=== PATIENT | female | born 1945 | race Caucasian/White ===

== ENCOUNTER 2017-06-01 19:05 | Outpatient (CLI) | payer MEDICARE | END 2017-06-01 19:06 | disposition critical access hospital (66) | LOC: EMS 19:05 | PROVIDERS: ATTEND Surgery | DX: R11.2 Nausea with vomiting, unspecified (principal); R10.9 Unspecified abdominal pain | CPT/HCPCS: A0425; A0429 ==

== ENCOUNTER 2017-06-01 19:20 | Emergency (ER) | payer MEDICARE ==
[2017-06-01 20:24] LABS: BASOPHILS % (AUTO) 0.6 %; EOSINOPHILS % (AUTO) 0.7 %; HCT - HEMATOCRIT 40.8 % (37.0-47.0); HGB - HEMOGLOBIN 13.4 g/dL (12.0-16.0); LYMPHOCYTES # (AUTO) 1.1 10^3/uL (1.5-3.5); LYMPHOCYTES % (AUTO) 15.7 %; MEAN CORPUSCULAR HEMOGLOBIN 29.5 pg (27.0-31.0); MEAN CORPUSCULAR HGB CONC 32.8 g/dL (32.0-36.0); MEAN CORPUSCULAR VOLUME 89.7 fL (81.0-99.0); MONOCYTES # (AUTO) 0.5 10^3/uL (0.0-1.0); MONOCYTES % (AUTO) 7.6 %; NEUTROPHILS # (AUTO) 5.1 10^3/uL (1.5-6.6); NEUTROPHILS % (AUTO) 75.4 %; RED BLOOD COUNT 4.54 10^6/uL (4.20-5.40); RED CELL DISTRIBUTION WIDTH 13.5 % (12.0-15.0); UNCORRECTED WHITE BLOOD COUNT 6.8 x10^3/uL; WHITE BLOOD COUNT 6.8 x10^3/uL (4.8-10.8)
[2017-06-01 20:30] LABS: BILIRUBIN,URINE NEGATIVE (NEGATIVE)
[2017-06-01 20:33] LABS: ALBUMIN/GLOBULIN RATIO 1.1 (1.0-2.2); BILIRUBIN,TOTAL 0.5 mg/dL (0.2-1.0); CALCIUM 9.3 mg/dL (8.5-10.3); CREATININE 0.7 mg/dL (0.4-1.0); POTASSIUM 3.3 mmol/L (3.5-5.0); TOTAL PROTEIN 7.9 g/dL (6.7-8.2)
[2017-06-01 20:39] LABS: UA w/ MICROSCOPIC CHARGE YES
[2017-06-01] MEDS ORDERED: PROMETHAZINE INJ 25 MG in SODIUM CHLORIDE 0.9% 50 ML IV STA (20:53)
[2017-06-01] MEDS ORDERED: PROMETHAZINE 25 MG/1 ML VIAL ONE (20:55)
[2017-06-01 21:01] LABS: UR CULTURE IF IND NOT INDICATED
[2017-06-01] MEDS ORDERED: IOPAMIDOL-300 100 ML VIAL IVP ONE (21:47)
[2017-06-01] MEDS ORDERED: MAG HYDROX/AL HYDROX/SIMETH 30 ML UDC PO STA (22:09)
[2017-06-01] MEDS ORDERED: LIDOCAINE VISCOUS 2% 15 ML UDC MM STA (22:09)
[2017-06-01] MEDS ORDERED: SUCRALFATE 1 GM/10 ML UDC PO STA (22:09)
[2017-06-01] MEDS ORDERED: ONDANSETRON 4 MG/2 ML VIAL IVP STA (22:10)
[2017-06-01] MEDS ORDERED: SUCRALFATE 1 GM/10 ML UDC ONE (22:12)
[2017-06-01] MEDS ORDERED: LIDOCAINE VISCOUS 2% 15 ML UDC MM ONE (22:12)
--- NOTE | 2017-06-01 22:12 | CT Preliminary Report ---
Exam: CT Abdomen/Pelvis W/ IMPRESSION: 1. Diverticulosis, no diverticulitis or other acute inflammatory process. 2. Hiatal hernia. [facility] SITE ID: [id number]
[2017-06-01] MEDS ORDERED: ONDANSETRON 4 MG/2 ML VIAL ONE (22:13)
[2017-06-01] MEDS ORDERED: MAG HYDROX/AL HYDROX/SIMETH 30 ML UDC ONE (22:13)
--- NOTE | 2017-06-01 22:15 | CT Report ---
EXAM: CT ABDOMEN AND PELVIS EXAM DATE: 06/01/2017 09:47 PM. CLINICAL HISTORY: Abdominal pain, vomiting. COMPARISONS: None. TECHNIQUE: Routine helical CT imaging was performed through the abdomen and pelvis. IV contrast: 100 mL Isovue-300. Enteric contrast: No. Reconstructions: Coronal and sagittal. In accordance with CT protocol optimization, one or more of the following dose reduction techniques w ere utilized for this exam: automated exposure control, adjustment of mA and/or KV based on patient s ize, or use of iterative reconstructive technique. FINDINGS: Lung Bases: The visualized lungs are clear. There is a moderate hiatal hernia. Liver: 9 mm hypodensity at the hepatic dome most likely representing a cyst or hemangioma. Liver is o therwise unremarkable. Gallbladder/Bile Ducts: Unremarkable. Spleen: Normal. Pancreas: Normal. Adrenal Glands: Normal. Kidneys: Normal. No masses or hydronephrosis. Peritoneal Cavity/Bowel: Diverticulosis, no evidence of diverticulitis. No bowel obstruction. No free air or fluid collections. No evidence of appendicitis. Pelvic Organs: Normal. The bladder and visualized pelvic organs are within normal limits. Vasculature: No aneurysms or other significant abnormality. Bones: No significant abnormality. Other: None. IMPRESSION: 1. Diverticulosis, no diverticulitis or other acute inflammatory process. 2. Hiatal hernia. [facility] Referring Provider Line: [phone] SITE ID: [id number]
--- NOTE | 2017-06-01 22:33 | ED Physician Documentation ---
PD HPI ABD PAIN - Stated complaint Stated Complaint: ABD PAIN - Chief complaint Chief Complaint: Abd Pain - History obtained from History obtained from: Patient - History of Present Illness Timing - onset: How many weeks ago (1) Timing - duration: Weeks (1) Timing - details: Gradual onset Pain level max: 7 Pain level now: 4 Quality: Aching, Pain Location: Epigastric Radiation: Other (non-radiating) Improved by: Vomiting Worsened by: Eating Associated symptoms: Nausea, Vomiting. No: Fever, Diarrhea, Constipation, Melena, Hematochezia, Dysuria Similar symptoms before: Diagnosis (gastritis, gastric ulcer, hiatal hernia) Recently seen: Not recently seen Review of Systems Constitutional: denies: Fever, Chills Nose: denies: Rhinorrhea / runny nose, Congestion Throat: denies: Sore throat Cardiac: denies: Chest pain / pressure Respiratory: denies: Cough GI: reports: Nausea, Vomiting. denies: Diarrhea, Hematemesis, Bloody / black stool Skin: denies: Rash Musculoskeletal: denies: Neck pain, Back pain Neurologic: denies: Headache PD PAST MEDICAL HISTORY - Past Medical History Past Medical History: Yes Cardiovascular: Hypertension Respiratory: Asthma Endocrine/Autoimmune: HyPOthyroidism GI: GERD, Hiatal hernia Musculoskeletal: Osteoarthritis - Past Surgical History Past Surgical History: Yes General: Appendectomy, Bowel surgery - Present Medications Home Medications: Ambulatory Orders Medication Instructions Recorded Confirmed Hydrochlorothiazide 25 mg PO DAILY 06/01/17 06/01/17 Levothyroxine [Synthroid] 150 mcg ORAL DAILY 06/01/17 06/01/17 Omeprazole 40 mg ORAL DAILY 06/01/17 06/01/17 Quetiapine Fumarate [Quetiapine 25 mg PO BID 06/01/17 06/01/17 Fumarate ER] Ondansetron Odt [Zofran] 4 mg TL Q6H PRN #10 tablet 06/02/17 Promethazine Supp [Phenergan Supp] 25 mg [place] Q6HR PRN #10 supp 06/02/17 Promethazine [Phenergan] 25 mg PO Q6H PRN #10 tab 06/02/17 Sucralfate [Carafate] 1 gm PO ACHS #60 tablet 06/02/17 - Allergies Allergies/Adverse Reactions: Allergies Allergy/AdvReac Type Severity Reaction Status Date / Time haloperidol [From Haldol] Allergy Unknown Verified 06/01/17 19:26 haloperidol lactate * Allergy Unknown Verified 06/01/17 19:26 [From Haldol] - Living Situation Living Situation: reports: With family Living Arrangement: reports: At home - Social History Does the pt smoke?: No Smoking Status: Never smoker Does the pt drink ETOH?: No Does the pt have substance abuse?: No - Immunizations Immunizations are current?: Yes - POLST Patient has POLST: No PD ED PE NORMAL - Vitals Vital signs reviewed: Yes - General General: Alert and oriented X 3, No acute distress, Well developed/nourished - HEENT HEENT: PERRL, Moist mucous membranes - Neck Neck: Supple, no meningeal sign - Cardiac Cardiac: RRR, Strong equal pulses - Respiratory Respiratory: No respiratory distress, Clear bilaterally - Abdomen Abdomen: Soft, Non tender, Non distended - Derm Derm: Warm and dry - Neuro Neuro: Alert and oriented X 3 - Psych Psych: Normal mood, Normal affect Results - Vitals Vitals: Vital Signs - 24 hr 06/01/17 06/01/17 06/01/17 19:21 19:40 21:02 Temperature 35.6 C L Heart Rate 80 88 69 Respiratory 24 22 22 Rate Blood Pressure 211/101 H 187/94 H 198/87 H O2 Saturation 98 95 96 06/01/17 06/01/17 06/01/17 22:06 22:22 23:15 Temperature Heart Rate 75 75 69 Respiratory 24 22 21 Rate Blood Pressure 206/111 H 181/93 H O2 Saturation 96 95 95 06/01/17 23:32 Temperature Heart Rate 73 Respiratory 26 H Rate Blood Pressure 180/94 H O2 Saturation 98 Oxygen O2 Source Room air - Labs Labs: Laboratory Tests 06/01/17 06/01/17 06/01/17 19:36 19:36 20:24 WBC 6.8 RBC 4.54 Hgb 13.4 Hct 40.8 MCV 89.7 MCH 29.5 MCHC 32.8 RDW 13.5 Plt Count 298 MPV 9.0 Neut # 5.1 Lymph # 1.1 L [place] # 0.5 Eos # 0.0 Baso # 0.0 Absolute Nucleated RBC 0.00 Nucleated RBCs 0.0 Sodium 138 Potassium 3.3 L Chloride 102 Carbon Dioxide 24 Anion Gap 12.0 BUN 16 Creatinine 0.7 Estimated GFR (MDRD) 82 L Glucose 135 H Calcium 9.3 Total Bilirubin 0.5 AST 19 ALT 24 Alkaline Phosphatase 75 Total Protein 7.9 Albumin 4.1 Globulin 3.8 Albumin/Globulin Ratio 1.1 Lipase 25 Urine Color YELLOW Urine Clarity HAZY Urine pH 7.0 Ur Specific [place] 1.015 Urine Protein NEGATIVE Urine Glucose (UA) NEGATIVE Urine Ketones TRACE Urine Occult Blood NEGATIVE Urine Nitrite NEGATIVE Urine Bilirubin NEGATIVE Urine Urobilinogen 0.2 (NORMAL) Ur Leukocyte Esterase TRACE H Urine RBC None Seen Urine WBC 11-25 H Ur Squamous Epith Cells MOD Squamous H Amorphous Sediment Moderate Urine Bacteria None Seen Ur Microscopic Review INDICATED Urine Culture Comments NOT INDICATED - Rads (name of study) CT abd/pelvis Radiology: Prelim report reviewed, EMP read contemporaneously, See rad report ( Diverticulosis, no diverticulitis or other acute inflammatory process. Hiatal hernia. ) PD MEDICAL DECISION MAKING - ED course Complexity details: reviewed results, re-evaluated patient, considered differential, d/w patient ED course: Patient is a 71-year-old female who presents to the emergency department with vomiting today. She was given IV Zofran, Phenergan, Ativan and IV fluids. She is able to tolerate a small amount by mouth. Does not appear significantly dehydrated on exam. The emesis is nonbloody. We will trial her on oral Zofran and rectal Phenergan for home and follow-up closely with her doctor. No evidence of upper GI bleed. Patient counseled regarding signs and symptoms for which I believe and urgent re-evaluation would be necessary. Patient with good understanding of and agreement to plan and is comfortable going home at this time This document was made in part using voice recognition software. While efforts are made to proofread this document, sound alike and grammatical errors may occur. Departure - Departure Disposition: Home, Self Care Clinical Impression: Vomiting Qualifiers: Vomiting type: unspecified Vomiting Intractability: non-intractable Nausea presence: with nausea Qualified Code(s): R11.2 - Nausea with vomiting, unspecified Hypertension Qualifiers: Hypertension type: essential hypertension Qualified Code(s): I10 - Essential ( primary) hypertension Condition: Stable Instructions: ED Nausea Vomiting Follow-Up: your,doctor in 3 days [Other] Prescriptions: Promethazine Supp [Phenergan Supp] 25 mg UT Q6HR PRN #10 supp PRN Reason: Nausea / Vomiting Sucralfate [Carafate] 1 gm PO ACHS #60 tablet Promethazine [Phenergan] 25 mg PO Q6H PRN #10 tab PRN Reason: Nausea / Vomiting Ondansetron Odt [Zofran] 4 mg TL Q6H PRN #10 tablet PRN Reason: Nausea / Vomiting Comments: Return if you worsen. Follow up with your doctor in 3 days if not better
[2017-06-01] MEDS ORDERED: PANTOPRAZOLE 40 MG VIAL IVP STA (23:30)
[2017-06-01] MEDS ORDERED: LORazepam 2 MG/ML SYRINGE IVP STA (23:34)
[2017-06-01] MEDS ORDERED: SODIUM CHLORIDE 0.9% 1,000 ML IV ONE (23:34)
[2017-06-01] MEDS ORDERED: LORazepam 2 MG/ML SYRINGE ONE (23:43)
[2017-06-01] MEDS ORDERED: PANTOPRAZOLE 40 MG VIAL ONE (23:43)
[2017-06-02 01:08] VITALS: BP 195/103
== END 2017-06-02 01:19 | disposition home or self-care (01) ==
LOC: EDUNIT# → ED 19:20
DX: R11.2 Nausea with vomiting, unspecified (principal); I10 Essential (primary) hypertension; J45.909 Unspecified asthma, uncomplicated; E03.9 Hypothyroidism, unspecified; K21.9 Gastro-esophageal reflux disease without esophagitis; M19.90 Unspecified osteoarthritis, unspecified site
CPT/HCPCS: 74177; 80053; 81001; 83690; 85025; 96365; 96375; 99284; A9270; J2060; Q9967; 81003; 87086

== ENCOUNTER 2017-06-28 09:11 | Emergency (ER) | payer MEDICARE, MEDICAID ==
[2017-06-28 09:25] VITALS: BP 140/86
--- NOTE | 2017-06-28 10:13 | XRAY Preliminary Report ---
Exam: XR Shoulder 3 View RT IMPRESSION: Unremarkable study for age. No fracture or acute posttraumatic abnormality. Minor osteophytic changes in the glenohumeral joint with moderate degenerative and hypertrophic castellano es right AC joint. [facility] SITE ID: [id number]
--- NOTE | 2017-06-28 10:16 | XRAY Report ---
EXAM: RIGHT SHOULDER RADIOGRAPHY, 3 VIEWS EXAM DATE: 06/28/2017 10:01 AM. CLINICAL HISTORY: 72 year-old female post fall last night jamming shoulder. Pain. COMPARISON: None. TECHNIQUE: AP, Grashey and Y views. FINDINGS: Bones: Unremarkable for age. No fracture or acute bone lesion. Small 1 cm benign appearing bone cyst right femoral head. Joints: Minor osteophytic changes in the glenohumeral joint with moderate degenerative hypertrophic c hanges right AC joint. No subluxations or joint effusion. Soft tissues: The visualized hemithorax is unremarkable. No soft tissue swelling. IMPRESSION: Unremarkable study for age. No fracture or acute posttraumatic abnormality. Minor osteophytic changes in the glenohumeral joint with moderate degenerative and hypertrophic castellano es right AC joint. [facility] Referring Provider Line: [phone] SITE ID: [id number]
--- NOTE | 2017-06-28 10:20 | ED Physician Documentation ---
PD HPI UPPER EXT INJURY - Stated complaint Stated Complaint: GLF, R ARM PX - Chief complaint Chief Complaint: Ext Problem - History obtained from History obtained from: Patient - History of Present Illness Location: Right, Shoulder Type of injury: Fall Where injury occurred: Home Timing - onset: Last night Worsened by: Moving, Palpating Associated symptoms: No: Weakness, Numbness Similar symptoms before: Has not had sx before - Additonal information Additional information: The patient is a 72-year-old female who fell last night when she stumbled over a hose on her deck. She impacted her right upper extremity, and presents now with pain in her right shoulder. She denies any other injuries. She is right- hand dominant. Review of Systems Constitutional: denies: Fever Ears: denies: Tinnitus/ringing Nose: denies: Congestion Cardiac: denies: Chest pain / pressure, Palpitations Respiratory: denies: Dyspnea, Cough GI: denies: Abdominal Pain, Nausea, Vomiting : denies: Dysuria Skin: denies: Rash Musculoskeletal: reports: Joint pain (Right shoulder). denies: Neck pain, Back pain Neurologic: denies: Focal weakness, Numbness, Headache, Head injury PD PAST MEDICAL HISTORY - Past Medical History Past Medical History: Yes Cardiovascular: Hypertension Respiratory: Asthma Endocrine/Autoimmune: HyPOthyroidism GI: GERD, Hiatal hernia Musculoskeletal: Osteoarthritis - Past Surgical History Past Surgical History: Yes General: Appendectomy, Bowel surgery - Present Medications Home Medications: Ambulatory Orders Medication Instructions Recorded Confirmed Hydrochlorothiazide 25 mg PO DAILY 06/01/17 06/01/17 Levothyroxine [Synthroid] 150 mcg ORAL DAILY 06/01/17 06/01/17 Omeprazole 40 mg ORAL DAILY 06/01/17 06/01/17 Quetiapine Fumarate [Quetiapine 25 mg PO BID 06/01/17 06/01/17 Fumarate ER] Ondansetron Odt [Zofran] 4 mg TL Q6H PRN #10 tablet 06/02/17 Promethazine Supp [Phenergan Supp] 25 mg [place] Q6HR PRN #10 supp 06/02/17 Promethazine [Phenergan] 25 mg PO Q6H PRN #10 tab 06/02/17 Sucralfate [Carafate] 1 gm PO ACHS #60 tablet 06/02/17 - Allergies Allergies/Adverse Reactions: Allergies Allergy/AdvReac Type Severity Reaction Status Date / Time haloperidol [From Haldol] Allergy Unknown Verified 06/01/17 19:26 haloperidol lactate * Allergy Unknown Verified 06/01/17 19:26 [From Haldol] - Social History Does the pt smoke?: No Smoking Status: Never smoker Does the pt drink ETOH?: No Does the pt have substance abuse?: No - Immunizations Immunizations are current?: Yes - POLST Patient has POLST: No PD ED PE NORMAL - Vitals Vital signs reviewed: Yes (Mild systolic hypertension.) - General General: Alert and oriented X 3, Well developed/nourished - HEENT HEENT: Atraumatic, EOMI, Pharynx benign - Neck Neck: No bony TTP, No adenopathy, No JVD - Cardiac Cardiac: RRR, No murmur - Respiratory Respiratory: No respiratory distress, Clear bilaterally, Other (No chest wall tenderness.) - Abdomen Abdomen: Soft, Non tender - Back Back: No CVA TTP, No spinal TTP - Derm Derm: No rash - Extremities Extremities: No edema, No calf tenderness / cord, Other (There is tenderness to palpation over the anterior aspect of the right shoulder, with decreased range of motion due to pain. There is no ecchymosis or break in the integument. Distal neurovascular is intact.) - Neuro Neuro: Alert and oriented X 3, No motor deficit, No sensory deficit, Normal speech Results - Vitals Vitals: Vital Signs - 24 hr 06/28/17 09:21 Temperature 36.5 C Heart Rate 73 Respiratory 18 Rate Blood Pressure 140/86 H O2 Saturation 99 Oxygen O2 Source Room air - Rads (name of study) Right Shoulder Radiology: Prelim report reviewed, EMP read contemporaneously, See rad report ( No fracture or acute posttraumatic abnormality. Minor osteophytic changes in the glenohumeral joint with moderate degenerative and hypertrophic changes right AC joint.) PD MEDICAL DECISION MAKING - ED course Complexity details: reviewed results, re-evaluated patient, considered differential, d/w patient ED course: The patient's presentation is significant for contusion/strain of the right shoulder caused by falling. X-ray reveals no evidence of fracture or dislocation. Treatment in the emergency department included acetaminophen 650 mg orally, and application of a right arm sling. The patient declined prescription for pain medication. I discussed with her the expected course of injury, symptomatic treatment and outpatient follow-up, as well as potentially worrisome signs or symptoms that should prompt reevaluation in the emergency department. Departure - Departure Disposition: 01 Home, Self Care Clinical Impression: Strain of right shoulder Qualifiers: Encounter type: initial encounter Qualified Code(s): S46.911A - Strain of unspecified muscle, fascia and tendon at shoulder and upper arm level, right arm , initial encounter Fall Qualifiers: Encounter type: initial encounter Qualified Code(s): W19.XXXA - Unspecified fall, initial encounter Condition: Stable Instructions: ED Sprain Shoulder Follow-Up: Danisha Greco PA-C [Provider Admit Priv/Credential] - Comments: Apply ice pack to your right shoulder intermittently for the next several days. Use the arm sling if it provides comfort. You can use Tylenol or ibuprofen if needed for discomfort. Follow-up with your primary physician as scheduled. Return to the emergency department if you develop increasing pain, or otherwise worsening symptoms.
[2017-06-28] MEDS ORDERED: ACETAMINOPHEN 325 MG TABLET PO STA (10:33)
[2017-06-28] MEDS ORDERED: ACETAMINOPHEN 325 MG TABLET PO ONE (10:40)
[2017-06-28] MEDS ORDERED: METOPROLOL 5 MG/5 ML VIAL IVP ONE (11:04)
== END 2017-06-28 10:48 | disposition home or self-care (01) ==
LOC: ED 09:11
DX: S46.911A Strain of unspecified muscle, fascia and tendon at shoulder and upper arm level, right arm, initial encounter (principal); W18.09XA Striking against other object with subsequent fall, initial encounter; I10 Essential (primary) hypertension; E03.9 Hypothyroidism, unspecified; Y92.007 Garden or yard of unspecified non-institutional (private) residence as the place of occurrence of the external cause
CPT/HCPCS: 73030; 99283; A9270

== ENCOUNTER 2017-07-22 03:44 | Outpatient (CLI) | payer MEDICARE, MEDICAID | END 2017-07-22 03:45 | disposition critical access hospital (66) | LOC: EMS 03:44 | PROVIDERS: ATTEND Surgery | DX: R11.2 Nausea with vomiting, unspecified (principal) | CPT/HCPCS: A0425; A0427 ==

== ENCOUNTER 2017-07-22 04:18 | Observation (INO) | payer MEDICARE, MEDICAID ==
[2017-07-22] MEDS ORDERED: SODIUM CHLORIDE 0.9% 1,000 ML IV ONE ×3 (04:32→08:38)
[2017-07-22] MEDS ORDERED: PROMETHAZINE INJ 12.5 MG in SODIUM CHLORIDE 0.9% 50 ML IV STA (04:32)
--- NOTE | 2017-07-22 04:40 | ED Physician Documentation ---
PD HPI ABD PAIN - Stated complaint Stated Complaint: N/V - Chief complaint Chief Complaint: Abd Pain - History obtained from History obtained from: Patient, EMS - History of Present Illness Timing - onset: How many days ago (4) Timing - duration: Days (4) Timing - details: Waxing and waning Quality: Pain Location: All over / everywhere Associated symptoms: Nausea, Vomiting. No: Fever, Diarrhea, Dysuria, Chest pain Similar symptoms before: Work up / diagnostics (She was seen here 2 months ago with similar presentation.) - Treatment prior to arrival Treatment prior to arrival: Medics administered Zofran 4 mg IV. - Additional information Additional information: The patient is a 72-year-old female who presents with generalized abdominal pain and vomiting of 4 days' duration. She also reports fever and chills. She denies diarrhea or dysuria. She reports a history of similar symptoms intermittently since 2007. The last time was 2 months ago. She was seen here at that time, and a CT scan revealed hiatal hernia, and no other radiographic abnormality to explain her symptoms. She is status post appendectomy. She denies any use of alcohol or other drugs. Review of Systems Constitutional: reports: Fever, Chills Ears: denies: Tinnitus/ringing Nose: denies: Congestion Throat: denies: Sore throat Cardiac: denies: Chest pain / pressure Respiratory: denies: Dyspnea, Cough GI: reports: Abdominal Pain, Nausea, Vomiting. denies: Diarrhea : denies: Dysuria Skin: denies: Rash Musculoskeletal: denies: Back pain Neurologic: denies: Focal weakness, Numbness, Headache PD PAST MEDICAL HISTORY - Past Medical History Cardiovascular: Hypertension Respiratory: Asthma Endocrine/Autoimmune: HyPOthyroidism GI: GERD, Hiatal hernia Musculoskeletal: Osteoarthritis - Past Surgical History Past Surgical History: Yes General: Appendectomy, Bowel surgery - Present Medications Home Medications: Ambulatory Orders Medication Instructions Recorded Confirmed Hydrochlorothiazide 25 mg PO DAILY 06/01/17 06/01/17 Levothyroxine [Synthroid] 150 mcg ORAL DAILY 06/01/17 06/01/17 Omeprazole 40 mg ORAL DAILY 06/01/17 06/01/17 Quetiapine Fumarate [Quetiapine 25 mg PO BID 06/01/17 06/01/17 Fumarate ER] Ondansetron Odt [Zofran] 4 mg TL Q6H PRN #10 tablet 06/02/17 07/22/17 Promethazine Supp [Phenergan Supp] 25 mg [place] Q6HR PRN #10 supp 06/02/17 Promethazine [Phenergan] 25 mg PO Q6H PRN #10 tab 06/02/17 Sucralfate [Carafate] 1 gm PO ACHS #60 tablet 06/02/17 Ondansetron Odt [Zofran] 4 mg TL Q6H PRN #10 tablet 07/22/17 Potassium Chloride [K-Dur] 20 meq PO DAILY #7 tablet 07/22/17 Promethazine [Phenergan] 25 - 50 mg PO Q6H PRN #10 tab 07/22/17 - Allergies Allergies/Adverse Reactions: Allergies Allergy/AdvReac Type Severity Reaction Status Date / Time haloperidol [From Haldol] Allergy Unknown Verified 07/22/17 04:27 haloperidol lactate * Allergy Unknown Verified 07/22/17 04:27 [From Haldol] - Social History Does the pt smoke?: No Smoking Status: Never smoker Does the pt drink ETOH?: No Does the pt have substance abuse?: No - Immunizations Immunizations are current?: Yes - POLST Patient has POLST: No PD ED PE NORMAL - Vitals Vital signs reviewed: Yes (hypertensive) - General General: Alert and oriented X 3, Well developed/nourished - HEENT HEENT: Atraumatic, EOMI, Moist mucous membranes, Pharynx benign - Neck Neck: Supple, no meningeal sign, No adenopathy, No JVD - Cardiac Cardiac: RRR, No murmur - Respiratory Respiratory: No respiratory distress, Clear bilaterally - Abdomen Abdomen: Normal bowel sounds, Soft, Non distended, Other (Mild generalized tenderness to palpation, without focal tenderness, rebound, or guarding.) - Back Back: No CVA TTP - Derm Derm: No rash - Extremities Extremities: No edema, No calf tenderness / cord - Neuro Neuro: Alert and oriented X 3, No motor deficit, No sensory deficit Results - Vitals Vitals: Vital Signs - 24 hr 07/22/17 07/22/17 04:22 06:33 Temperature 36.8 C Heart Rate 83 81 Respiratory 18 16 Rate Blood Pressure 191/97 H 170/84 H O2 Saturation 96 95 Oxygen O2 Source Room air - Labs Labs: Laboratory Tests 07/22/17 07/22/17 07/22/17 04:38 05:00 05:00 WBC 11.9 H RBC 4.73 Hgb 14.0 Hct 41.9 MCV 88.6 MCH 29.6 MCHC 33.5 RDW 13.6 Plt Count 313 MPV 8.7 Neut # 10.6 H Lymph # 0.8 L [place] # 0.5 Eos # 0.0 Baso # 0.0 Absolute Nucleated RBC 0.00 Nucleated RBCs 0.0 Sodium 138 Potassium 2.5 L* Chloride 96 L Carbon Dioxide 30 Anion Gap 12.0 BUN 40 H Creatinine 1.2 H Estimated GFR (MDRD) 44 L Glucose 183 H Calcium 9.2 Total Bilirubin 1.2 H AST 29 ALT 23 Alkaline Phosphatase 79 Total Protein 8.0 Albumin 4.2 Globulin 3.8 Albumin/Globulin Ratio 1.1 Lipase 16 L Urine Color YELLOW Urine Clarity CLEAR Urine pH 6.0 Ur Specific [place] >=1.030 H Urine Protein 100 H Urine Glucose (UA) NEGATIVE Urine Ketones NEGATIVE Urine Occult Blood TRACE-INTA Urine Nitrite NEGATIVE Urine Bilirubin NEGATIVE Urine Urobilinogen 0.2 (NORMAL) Ur Leukocyte Esterase NEGATIVE Urine RBC 0-5 Urine WBC 0-3 Ur Squamous Epith Cells RARE Squamous Urine Bacteria Rare Urine Casts 11-25 Hyaline Casts Urine Mucus Moderate Strands Ur Microscopic Review INDICATED Urine Culture Comments NOT INDICATED PD MEDICAL DECISION MAKING - ED course Complexity details: reviewed old records, reviewed results, re-evaluated patient , considered differential, d/w patient ED course: The patient's presentation is significant for vomiting with dehydration. Her exam is significant for mild left upper quadrant tenderness to palpation, consistent with possible gastritis. Her presentation does not suggest diverticulitis, bowel obstruction, or otherwise surgical abdomen. Her chemistry panel is significant for hypokalemia with a potassium of 2.5. BUN to creatinine ratio is greater than 20, with a BUN of 40 and creatinine 1.2. Urinalysis reveals concentrated urine of greater than 1.030. Treatment in the emergency department included administration of normal saline 2 L IV, Phenergan 12.5 mg IV, Ativan 0.5 mg IV, and Zofran 4 mg IV. Potassium 10 mEq was administered IV, and 25 mEq orally. Following the above treatment she remains nauseated, although improved when compared to initial arrival. At change of shift she is being observed to confirm her ability to drink fluids without recurrent vomiting.It is anticipated she will be able to go home with prescriptions for antiemetic. Her care is being turned over to Dr. Martinez who will reevaluate her prior to discharge. Departure - Departure Clinical Impression: Dehydration, Hypokalemia, Hiatal hernia Vomiting Qualifiers: Vomiting type: unspecified Vomiting Intractability: non-intractable Nausea presence: without nausea Qualified Code(s): R11.11 - Vomiting without nausea Condition: Stable Instructions: ED Abdominal Pain Unkn Cause, ED Nausea Vomiting, ED Potassium Deficiency Follow-Up: Danisha Greco PA-C [Provider Admit Priv/Credential] - Prescriptions: Potassium Chloride [K-Dur] 20 meq PO DAILY #7 tablet Promethazine [Phenergan] 25 - 50 mg PO Q6H PRN #10 tab PRN Reason: Nausea / Vomiting Ondansetron Odt [Zofran] 4 mg TL Q6H PRN #10 tablet PRN Reason: Nausea / Vomiting Comments: Drink plenty of fluids. You can use Phenergan or Zofran as prescribed if needed for nausea. Follow up with your primary physician within 1 week. Call to schedule an appointment. Return to the emergency department if you develop increasing abdominal pain, persistent vomiting, or otherwise worsening symptoms.
[2017-07-22] MEDS ORDERED: PHENobarb/HYOSCY/ATROPINE/SCOP 5 ML SYRINGE PO STA (04:45)
[2017-07-22] MEDS ORDERED: MAG HYDROX/AL HYDROX/SIMETH 30 ML UDC PO STA (04:45)
[2017-07-22] MEDS ORDERED: LIDOCAINE VISCOUS 2% 15 ML UDC MM STA (04:45)
[2017-07-22 04:47] LABS: BILIRUBIN,URINE NEGATIVE (NEGATIVE)
[2017-07-22] MEDS ORDERED: PROMETHAZINE 25 MG/1 ML VIAL ONE (04:48)
[2017-07-22 04:49] LABS: UA w/ MICROSCOPIC CHARGE YES
[2017-07-22 04:53] LABS: UR CULTURE IF IND NOT INDICATED; WBC,URINE 0-3 /HPF (0-5)
[2017-07-22 05:18] LABS: BASOPHILS % (AUTO) 0.3 %; HCT - HEMATOCRIT 41.9 % (37.0-47.0); LYMPHOCYTES # (AUTO) 0.8 10^3/uL (1.5-3.5); LYMPHOCYTES % (AUTO) 6.4 %; MEAN CORPUSCULAR HEMOGLOBIN 29.6 pg (27.0-31.0); MEAN CORPUSCULAR HGB CONC 33.5 g/dL (32.0-36.0); MEAN CORPUSCULAR VOLUME 88.6 fL (81.0-99.0); MEAN PLATELET VOLUME 8.7 fL (7.9-10.8); MONOCYTES # (AUTO) 0.5 10^3/uL (0.0-1.0); MONOCYTES % (AUTO) 4.4 %; NEUTROPHILS # (AUTO) 10.6 10^3/uL (1.5-6.6); NEUTROPHILS % (AUTO) 88.9 %; RED BLOOD COUNT 4.73 10^6/uL (4.20-5.40); RED CELL DISTRIBUTION WIDTH 13.6 % (12.0-15.0); UNCORRECTED WHITE BLOOD COUNT 11.9 x10^3/uL; WHITE BLOOD COUNT 11.9 x10^3/uL (4.8-10.8)
[2017-07-22 05:31] LABS: ALBUMIN/GLOBULIN RATIO 1.1 (1.0-2.2); BILIRUBIN,TOTAL 1.2 mg/dL (0.2-1.0); CALCIUM 9.2 mg/dL (8.5-10.3); CREATININE 1.2 mg/dL (0.4-1.0)
[2017-07-22] MEDS ORDERED: PHENobarb/HYOSCY/ATROPINE/SCOP 5 ML SYRINGE PO ONE (05:31)
[2017-07-22 05:32] LABS: POTASSIUM 2.5 mmol/L (3.5-5.0)
[2017-07-22] MEDS ORDERED: LIDOCAINE VISCOUS 2% 15 ML UDC MM ONE (05:32)
[2017-07-22] MEDS ORDERED: MAG HYDROX/AL HYDROX/SIMETH 30 ML UDC ONE (05:32)
[2017-07-22] MEDS ORDERED: LORazepam 2 MG/ML SYRINGE IVP STA (05:46)
[2017-07-22] MEDS ORDERED: POTASSIUM CHLOR 10 MEQ/100 ML 100 ML IV ONE ×4 (05:47→08:47)
[2017-07-22] MEDS ORDERED: POTASSIUM BICARB 25 MEQ TABLET PO STA (05:48)
[2017-07-22] MEDS ORDERED: LORazepam 2 MG/ML SYRINGE ONE (05:55)
[2017-07-22] MEDS ORDERED: POTASSIUM BICARB 25 MEQ TABLET PO ONE (07:04)
[2017-07-22] MEDS ORDERED: ONDANSETRON 4 MG/2 ML VIAL IVP STA (07:05)
[2017-07-22] MEDS ORDERED: ONDANSETRON 4 MG/2 ML VIAL ONE (07:14)
[2017-07-22] MEDS ORDERED: SODIUM CHLORIDE FLUSH 0.9% 10 ML SYRINGE IVP ONE (07:15)
[2017-07-22] MEDS ORDERED: POTASSIUM CHLOR 20 MEQ/100 ML 100 ML IV ONE (08:38)
--- NOTE | 2017-07-22 09:56 | ED Physician Documentation ---
PD HPI ABD PAIN - Stated complaint Stated Complaint: N/V - Chief complaint Chief Complaint: Abd Pain - History obtained from History obtained from: Patient - History of Present Illness Timing - onset: How many days ago (5) Timing - duration: Days (5) Timing - details: Gradual onset, Still present, Waxing and waning Quality: Sharp, Pain Location: Epigastric Improved by: Vomiting Associated symptoms: Nausea, Vomiting Similar symptoms before: Diagnosis (intractable cyclic vomiting.) Recently seen: Emergency Dept ( Seen here 2 months ago and admitted to [facility] in March.) PD PAST MEDICAL HISTORY - Past Medical History Cardiovascular: Hypertension Respiratory: Asthma Endocrine/Autoimmune: HyPOthyroidism GI: GERD, Hiatal hernia Musculoskeletal: Osteoarthritis - Past Surgical History Past Surgical History: Yes General: Appendectomy, Bowel surgery - Present Medications Home Medications: Ambulatory Orders Medication Instructions Recorded Confirmed Hydrochlorothiazide 25 mg PO DAILY 06/01/17 06/01/17 Levothyroxine [Synthroid] 150 mcg ORAL DAILY 06/01/17 06/01/17 Omeprazole 40 mg ORAL DAILY 06/01/17 06/01/17 Quetiapine Fumarate [Quetiapine 25 mg PO BID 06/01/17 06/01/17 Fumarate ER] Ondansetron Odt [Zofran] 4 mg TL Q6H PRN #10 tablet 06/02/17 07/22/17 Promethazine Supp [Phenergan Supp] 25 mg [place] Q6HR PRN #10 supp 06/02/17 Promethazine [Phenergan] 25 mg PO Q6H PRN #10 tab 06/02/17 Sucralfate [Carafate] 1 gm PO ACHS #60 tablet 06/02/17 Ondansetron Odt [Zofran] 4 mg TL Q6H PRN #10 tablet 07/22/17 Potassium Chloride [K-Dur] 20 meq PO DAILY #7 tablet 07/22/17 Promethazine [Phenergan] 25 - 50 mg PO Q6H PRN #10 tab 07/22/17 - Allergies Allergies/Adverse Reactions: Allergies Allergy/AdvReac Type Severity Reaction Status Date / Time haloperidol [From Haldol] Allergy Unknown Verified 07/22/17 04:27 haloperidol lactate * Allergy Unknown Verified 07/22/17 04:27 [From Haldol] - Social History Does the pt smoke?: No Smoking Status: Never smoker Does the pt drink ETOH?: No Does the pt have substance abuse?: No - Immunizations Immunizations are current?: Yes - POLST Patient has POLST: No Results - Vitals Vitals: Vital Signs - 24 hr 07/22/17 07/22/17 07/22/17 04:22 06:33 08:34 Temperature 36.8 C Heart Rate 83 81 86 Respiratory 18 16 16 Rate Blood Pressure 191/97 H 170/84 H 193/87 H O2 Saturation 96 95 96 Oxygen O2 Source Room air - Labs Labs: Laboratory Tests 07/22/17 07/22/17 07/22/17 04:38 05:00 05:00 WBC 11.9 H RBC 4.73 Hgb 14.0 Hct 41.9 MCV 88.6 MCH 29.6 MCHC 33.5 RDW 13.6 Plt Count 313 MPV 8.7 Neut # 10.6 H Lymph # 0.8 L Phillips # 0.5 Eos # 0.0 Baso # 0.0 Absolute Nucleated RBC 0.00 Nucleated RBCs 0.0 Sodium 138 Potassium 2.5 L* Chloride 96 L Carbon Dioxide 30 Anion Gap 12.0 BUN 40 H Creatinine 1.2 H Estimated GFR (MDRD) 44 L Glucose 183 H Calcium 9.2 Total Bilirubin 1.2 H AST 29 ALT 23 Alkaline Phosphatase 79 Total Protein 8.0 Albumin 4.2 Globulin 3.8 Albumin/Globulin Ratio 1.1 Lipase 16 L Urine Color YELLOW Urine Clarity CLEAR Urine pH 6.0 Ur Specific [place] >=1.030 H Urine Protein 100 H Urine Glucose (UA) NEGATIVE Urine Ketones NEGATIVE Urine Occult Blood TRACE-INTA Urine Nitrite NEGATIVE Urine Bilirubin NEGATIVE Urine Urobilinogen 0.2 (NORMAL) Ur Leukocyte Esterase NEGATIVE Urine RBC 0-5 Urine WBC 0-3 Ur Squamous Epith Cells RARE Squamous Urine Bacteria Rare Urine Casts 11-25 Hyaline Casts Urine Mucus Moderate Strands Ur Microscopic Review INDICATED Urine Culture Comments NOT INDICATED PD MEDICAL DECISION MAKING - ED course Complexity details: reviewed old records, reviewed results, re-evaluated patient , considered differential, d/w patient ED course: 72 y/o homeless female with paranoid disorder has a history of cyclical vomiting syndrome has been treated in the ED this morning by Dr. Phoenix and despite valiant effort the patient continues to be symptomatic. This is similar to prior presentations and a review of records from [facility] reveals a hospitalization for same in March of this year and multiple prior evaluations and treatments for cyclical vomiting. Today she has acute kidney injury and intractable vomiting with hypokalemia. Departure - Departure Disposition: 66 [facility] DC/Xfer Clinical Impression: Dehydration, Hypokalemia, Hiatal hernia Vomiting Qualifiers: Vomiting type: unspecified Vomiting Intractability: non-intractable Nausea presence: without nausea Qualified Code(s): R11.11 - Vomiting without nausea Cyclical vomiting syndrome Qualifiers: Vomiting Intractability: intractable Nausea presence: with nausea Qualified Code(s): G43.A1 - Cyclical vomiting, intractable Condition: Stable Instructions: ED Abdominal Pain Unkn Cause, ED Potassium Deficiency, ED Nausea Vomiting Follow-Up: Danisha Greco PA-C [Provider Admit Priv/Credential] - Prescriptions: Potassium Chloride [K-Dur] 20 meq PO DAILY #7 tablet Promethazine [Phenergan] 25 - 50 mg PO Q6H PRN #10 tab PRN Reason: Nausea / Vomiting Ondansetron Odt [Zofran] 4 mg TL Q6H PRN #10 tablet PRN Reason: Nausea / Vomiting Comments: Drink plenty of fluids. You can use Phenergan or Zofran as prescribed if needed for nausea. Follow up with your primary physician within 1 week. Call to schedule an appointment. Return to the emergency department if you develop increasing abdominal pain, persistent vomiting, or otherwise worsening symptoms.
[2017-07-22] MEDS ORDERED: cloNIDine 0.1 MG TABLET PO PRN (11:16)
[2017-07-22] MEDS ORDERED: ACETAMINOPHEN 325 MG TABLET PO PRN (11:22)
[2017-07-22] MEDS ORDERED: ONDANSETRON 4 MG/2 ML VIAL IVP PRN (11:22)
[2017-07-22] MEDS ORDERED: HYDROcod/ACETAM 5/325 MG TABLET PO PRN (11:22)
[2017-07-22] MEDS ORDERED: PROMETHAZINE 25 MG/1 ML VIAL IM PRN (11:22)
[2017-07-22] MEDS ORDERED: ZOLPIDEM 5 MG TABLET PO PRN (11:22)
[2017-07-22] MEDS ORDERED: PROCHLORPERAZINE 10 MG/2 ML VIAL IVP PRN (11:22)
[2017-07-22] MEDS ORDERED: SODIUM CHLORIDE FLUSH 0.9% 10 ML SYRINGE IVP PRN (11:22)
[2017-07-22] MEDS ORDERED: PANTOPRAZOLE 40 MG VIAL IVP STA (11:28)
[2017-07-22] MEDS ORDERED: POTASSIUM CHLORIDE 20 MEQ TABLET PO STA (11:30)
[2017-07-22] MEDS ORDERED: hydrALAZINE INJ 20 MG/ML VIAL IVP PRN (11:31)
--- NOTE | 2017-07-22 11:35 | HISTORY & PHYSICAL EXAMINATION ---
Chief Complaint - Chief Complaint Chief Complaint: nausea and vomiting History of Present Illness - Admitted From Admitted From:: emergence department - History Obtained From History obtained from: patient - History of Present Illness HPI Comment/Other: The patient is a 72-year-old female with past medical history significant for cyclical vomiting syndrome, paranoid disorder, who presents emergence department with generalized abdominal pain and vomiting for 4 days' duration. She also reports fever, chills, cough with productive sputum. Patient has been admitted for multiple times with similar symptoms. CT on two months revealed hiatal hernia, and no other radiographic significant abnormality. her chemistry panel today is significant for hypokalemia with a potassium of 2.5. BUN to creatinine ratio is greater than 20, with a BUN of 40 and creatinine 1.2. Urinalysis reveals concentrated urine of greater than 1.030.On May 2017, patient's BUN 16, creatinine 0.7, indicate dehydration and acute injury. She denies chest pain, shortness of breathing, headache, diarrhea, dysuria or hematuria. She denies any use of cigarette smoking, alcohol or other drugs. Patient is admitted at observation unit for symptomatic support, hydration, and electrolytic replacement now. Review of Systems - Constitutional Constitutional: reports: Fatigue, Fever, Chills. denies: Malaise, Weakness, Poor appetite, Diaphoresis, Night sweats, Weight gain, Weight loss - Eyes Eyes: denies: Pain, Irritation, Blurred vision, Spots in vision, Field loss, Vision loss, Dipolpia - Ears, Nose & Throat Ears, Nose & Throat: denies: Ear pain, Hearing loss, Hearing aids, Tinnitus, Vertigo, Nasal pain, Nasal discharge, Nasal obstruction, Sore throat, Hoarseness , Mouth lesions, Bleeding gums - Cardiovascular Cariovascular: denies: Irregular heart rate, Palpitations, Chest pain, Edema, Lightheadedness, Syncope, Exertional dyspnea, Decr. exercise tolerance - Respiratory Respiratory: reports: Cough, Sputum production. denies: Wheezing, Snoring, Hemoptysis, Orthopnea, SOB at rest, SOB with exertion, Apnea, Stridor - Gastrointestinal Gastrointestinal: reports: Abdominal pain, Nausea, Vomiting. denies: Abdominal distention, Constipation, Diarrhea, Change in bowel habits, Rectal bleeding, Black stools, Bloody stools, Bile emesis, Walter blood emesis, Coffee grounds emesis - Genitourinary Genitourinary: denies: Dysuria, Frequency, Urgency, Hematuria, Incontinence, Flank pain, Urethral discharge - Musculoskeletal Musculoskeletal: denies: Muscle pain, Back pain, Muscle aches, Stiffness, Limited range of motion, Muscle weakness, Gout, Joint pain - Integumentary Integumentary: denies: Rash, Pruritis, Lesions, Dryness, Lumps, Pigment changes - Neurological Neurological: denies: General weakness, Focal weakness, Headache, Dizziness, Numbness, Memory problems, Pre-existing deficit, Abnormal gait, Seizures, Incoordination, Slurred speech - Psychiatric Psychiatric: denies: Depression, Anxiety, Suicidal, Delusions, Hallucinations, Homicidal - Endocrine Endocrine: denies: Polyuria, Polydypsia, Polyphagia, Intolerance to cold, Intolerance to heat - Hematologic/Lymphatic Hematologic/Lymphatic: denies: Anemia, Bruising, Petechiae, Blood clots, Lymphadenopathy, Bleeding tendencies History - Past Medical History Cardiovascular: reports: Hypertension Respiratory: reports: Asthma Endocrine/Autoimmune: reports: HyPOthyroidism GI: reports: GERD, Hiatal hernia Musculoskeletal: reports: Osteoarthritis MRSA Hx?: No - Past Surgical History General: reports: Appendectomy, Bowel surgery - Family & Social History Family History Comment/Other: pt report she had three children and lost her for 42 years Social History Notes: pt report she had a home at [facility], not homeless - Substance History Use: Uses substance without health or social issues: NONE Abuse: Recurrent use of substance despite neg consequences: NONE Dependence: Experiences withdrawal or developed tolerances: NONE - POLST Patient has POLST: No POLST Status: Full Code (pt state she want full code) Meds/Allgy - Home Medications Home Medications: Ambulatory Orders Medication Instructions Recorded Confirmed Hydrochlorothiazide 25 mg PO DAILY 06/01/17 06/01/17 Levothyroxine [Synthroid] 150 mcg ORAL DAILY 06/01/17 06/01/17 Omeprazole 40 mg ORAL DAILY 06/01/17 06/01/17 Quetiapine Fumarate [Quetiapine 25 mg PO BID 06/01/17 06/01/17 Fumarate ER] Ondansetron Odt [Zofran] 4 mg TL Q6H PRN #10 tablet 06/02/17 07/22/17 Promethazine Supp [Phenergan Supp] 25 mg [place] Q6HR PRN #10 supp 06/02/17 Promethazine [Phenergan] 25 mg PO Q6H PRN #10 tab 06/02/17 Sucralfate [Carafate] 1 gm PO ACHS #60 tablet 06/02/17 Ondansetron Odt [Zofran] 4 mg TL Q6H PRN #10 tablet 07/22/17 Potassium Chloride [K-Dur] 20 meq PO DAILY #7 tablet 07/22/17 Promethazine [Phenergan] 25 - 50 mg PO Q6H PRN #10 tab 07/22/17 - Allergies Allergies/Adverse Reactions: Allergies Allergy/AdvReac Type Severity Reaction Status Date / Time haloperidol [From Haldol] Allergy Unknown Verified 07/22/17 04:27 haloperidol lactate * Allergy Unknown Verified 07/22/17 04:27 [From Haldol] Exam - Vital Signs Reviewed Vital Signs: Yes Vital Signs: Vital Signs x48h Temp Pulse Resp BP Pulse Ox 07/22/17 11:26 84 18 213/94 H 95 07/22/17 08:34 86 16 193/87 H 96 07/22/17 06:33 81 16 170/84 H 95 07/22/17 04:22 36.8 C 83 18 191/97 H 96 - Physical Exam General Appearance: positive: No acute distress, Alert. negative: Lethargic Eyes Bilateral: positive: Normal inspection, PERRL, No lid inflammation, Conjunctivae nml ENT: positive: ENT inspection nml, Pharynx nml, No signs of dehydration. negative: Purulent nasal drainage, Pharyngeal erythema Neck: positive: Nml inspection, No JVD, Trachea midline. negative: Lymphadenopathy (R), Lymphadenopathy (L), Stiff neck, Swelling/bruising, Tracheal deviation Respiratory: positive: Chest non-tender, No respiratory distress, Other ( diminished lung sound). negative: Wheezes, Rales, Rhonchi Cardiovascular: positive: Regular rate & rhythm, No murmur, No gallop. negative : Tachycardia, Bradycardia, Systolic murmur, Diastolic murmur Peripheral Pulses: positive: 2+ Abdomen: positive: Non-tender, No organomegaly, Nml bowel sounds, No distention. negative: Tenderness, Guarding, Rebound Back: positive: Nml inspection. negative: CVA tenderness (R), CVA tenderness (L ) Skin: positive: Color nml, No rash, Warm, Dry. negative: Cyanosis, Diaphoresis , Pallor, Skin rash Extremities: positive: Non-tender, Full ROM, Nml appearance. negative: Calf tenderness, Davina's sign/cords Neurologic/Psychiatric: positive: Oriented x3, Motor nml, Sensation nml. negative: Sensory loss, Facial droop, Slurred/abnml speech Conclusion/Plan - Problem List (1) Cyclical vomiting syndrome Conclusion/Plan: CT of abdomen did not reveals the significant cause, will symptomatic support PRN Zofran, Phenergile, Companzia daily lab monitor electrolytic,replacement as needed Qualifiers: Vomiting Intractability: intractable Nausea presence: with nausea Qualified Code(s): G43.A1 - Cyclical vomiting, intractable (2) Hypertension Conclusion/Plan: will resume home meds after reconciliation PRN Hydralazine, Clonidine monitor with vital Qualifiers: Hypertension type: essential hypertension Qualified Code(s): I10 - Essential (primary) hypertension (3) Hypokalemia Conclusion/Plan: replacement, pt denies any cardiac symptoms recheck potassium, PRN for EKG (4) Dehydration Conclusion/Plan: IVF recheck CMP, monitor kidney function (5) Hypothyroidism Conclusion/Plan: check TSH, resume home meds after reconciliation (6) Fever chills Conclusion/Plan: pt report fever, chill, and cough with productive sputum. slight elevated WBC. No fever, chill, SOB in ER, room air with SO2 96% order CXR, will follow up (7) DVT prophylaxis Conclusion/Plan: SCD, and heparin - Lab Results Fish Bones: 07/22/17 05:00 07/22/17 05:00 Issues/Core Measures - Anticipated LOS Anticipated Stay Length: Less than 2 midnights (pt is expected less than two nights) - DVT/VTE - Prophylaxis VTE/DVT Device ordered at admit?: Yes VTE/DVT Prophylaxis med ordered at admit?: Yes
[2017-07-22] MEDS ORDERED: PANTOPRAZOLE 40 MG VIAL ONE (11:37)
--- NOTE | 2017-07-22 12:02 | XRAY Preliminary Report ---
Exam: XR Chest 1 View IMPRESSION: Mild cardiomegaly, pulmonary venous congestion. [facility] SITE ID: [id number]
--- NOTE | 2017-07-22 12:05 | XRAY Report ---
EXAM: CHEST RADIOGRAPHY EXAM DATE: 07/22/2017 11:45 AM. CLINICAL HISTORY: Cough, reported fever,chill. COMPARISON: None. TECHNIQUE: 1 view. FINDINGS: Lungs/Pleura: Pulmonary vascularity increased. No infiltrate. No effusion. No pneumothorax Mediastinum: Mild cardiomegaly ectatic aorta. Possible hiatal hernia Other: None. IMPRESSION: Mild cardiomegaly, pulmonary venous congestion. [facility] Referring Provider Line: [phone] SITE ID: [id number]
[2017-07-22] MEDS: FAMOTIDINE 20 MG/50 ML 50 ML IV SCH ×2 (12:27→20:17)
[2017-07-22] MEDS: SODIUM CHLORIDE FLUSH 0.9% 10 ML SYRINGE IVP SCH ×2 (12:27→20:18)
[2017-07-22] MEDS: SODIUM CHLORIDE 0.9% 1,000 ML IV SCH (14:33)
[2017-07-22] MEDS: SUCRALFATE 1 GM/10 ML UDC PO SCH ×2 (15:55→20:17)
[2017-07-22] MEDS: QUEtiapine 25 MG TABLET PO SCH (20:17)
[2017-07-22] MEDS ORDERED: HEPARIN 5,000 UNIT/ML VIAL SUBQ SCH (21:00)
[2017-07-23] MEDS: SODIUM CHLORIDE 0.9% 1,000 ML IV SCH ×2 (00:05→08:07)
[2017-07-23] MEDS: SODIUM CHLORIDE FLUSH 0.9% 10 ML SYRINGE IVP SCH (04:11)
[2017-07-23 06:16] LABS: BASOPHILS % (AUTO) 0.4 %; EOSINOPHILS % (AUTO) 0.4 %; HCT - HEMATOCRIT 32.9 % (37.0-47.0); HGB - HEMOGLOBIN 10.7 g/dL (12.0-16.0); LYMPHOCYTES % (AUTO) 31.1 %; MEAN CORPUSCULAR HEMOGLOBIN 29.6 pg (27.0-31.0); MEAN CORPUSCULAR HGB CONC 32.6 g/dL (32.0-36.0); MEAN CORPUSCULAR VOLUME 90.6 fL (81.0-99.0); MEAN PLATELET VOLUME 8.7 fL (7.9-10.8); MONOCYTES # (AUTO) 0.6 10^3/uL (0.0-1.0); MONOCYTES % (AUTO) 9.2 %; NEUTROPHILS # (AUTO) 3.9 10^3/uL (1.5-6.6); NEUTROPHILS % (AUTO) 58.9 %; NUCLEATED RED BLOOD CELLS AUTO 0.1 /100WBC; RED BLOOD COUNT 3.63 10^6/uL (4.20-5.40); RED CELL DISTRIBUTION WIDTH 13.7 % (12.0-15.0); UNCORRECTED WHITE BLOOD COUNT 6.6 x10^3/uL; WHITE BLOOD COUNT 6.6 x10^3/uL (4.8-10.8)
[2017-07-23] MEDS: SUCRALFATE 1 GM/10 ML UDC PO SCH (06:19)
[2017-07-23 06:28] LABS: ALBUMIN/GLOBULIN RATIO 1.2 (1.0-2.2); BILIRUBIN,TOTAL 0.8 mg/dL (0.2-1.0); CALCIUM 7.8 mg/dL (8.5-10.3); CREATININE 0.7 mg/dL (0.4-1.0); MAGNESIUM 1.9 mg/dL (1.7-2.8); POTASSIUM 2.6 mmol/L (3.5-5.0); TOTAL PROTEIN 5.5 g/dL (6.7-8.2)
[2017-07-23] MEDS ORDERED: LEVOTHYROXINE 75 MCG TABLET PO SCH (07:00)
[2017-07-23] MEDS ORDERED: POTASSIUM CHLORIDE 20 MEQ TABLET PO SCH ×2 (07:00→11:00)
[2017-07-23] MEDS ORDERED: LEVOTHYROXINE 100 MCG TABLET PO SCH ×2 (07:00→09:00)
--- NOTE | 2017-07-23 07:03 | Discharge Plan ---
Discharge Plan Disposition: 01 Home, Self Care Condition: Stable Prescriptions: Prochlorperazine Supp [Compazine Supp] 25 mg [place] ONCE #30 supp Diet: Soft (at first then switch to reguar diet in the next few days as your stomach settles) Activity Restrictions: Activity as Tolerated Shower Restrictions: No Driving Restrictions: No Instruction Topics: ED Abdominal Pain Unkn Cause, ED Potassium Deficiency, ED Nausea Vomiting Additional Instructions or Follow Up instructions: Drink plenty of fluids.You have been observed and treated for intractable nausea and vomitting from cyclical vomitting syndrome. This is one of a few evaluations for this. We have prescribed compazine suppositories to be used as needed. Follow up with your primary physician within 1 week. Call to schedule an appointment. Return to the emergency department if you develop increasing abdominal pain, persistent vomiting, or otherwise worsening symptoms. No Smoking: If you smoke, Please STOP! Call for help. Follow-up with: Danisha Greco PA-C [Provider Admit Priv/Credential] -
--- NOTE | 2017-07-23 07:50 | DISCHARGE SUMMARY ---
"Discharge Summary Admit Date: 07/22/17 Discharge Date: 07/23/17 Discharging Provider: Elsa Serrato Condition at Discharge: Good Discharge Disposition: 01 Home, Self Care Discharge Facility Name: home - DIAGNOSES Admission Diagnoses: 1. Cyclical vomiting secondary to dehydration, mild 2. Essential benign hypertension 3. Obesity with BMI>35 with excessive caloric intake 4. Hypokalemia from loss, acute 5. Hypothyroidism, unspecified Discharge Diagnoses with Status of Each Condition: 1. Acute not intractable Cyclical vomiting secondary to dehydration, mild 2. Essential benign hypertension 3. Obesity with BMI>35 with excessive caloric intake 4. Hypokalemia from acute loss secondary to cyclical vomiting with gastritis 5. Hypothyroidism, unspecified - HPI History of Present Illness: The patient is a 72-year-old female with past medical history significant for cyclical vomiting syndrome, paranoid disorder, who presents emergence department with generalized abdominal pain and vomiting for 4 days' duration. She also reports fever, chills, cough with productive sputum. Patient has been admitted for multiple times with similar symptoms. CT on two months revealed hiatal hernia, and no other radiographic significant abnormality. her chemistry panel today is significant for hypokalemia with a potassium of 2.5. BUN to creatinine ratio is greater than 20, with a BUN of 40 and creatinine 1.2. Urinalysis reveals concentrated urine of greater than 1.030.On May 2017, patient's BUN 16, creatinine 0.7, indicate dehydration and acute injury. She denies chest pain, shortness of breathing, headache, diarrhea, dysuria or hematuria. She denies any use of cigarette smoking, alcohol or other drugs. Patient is admitted at observation unit for symptomatic support, hydration, and electrolytic replacement now. - CONSULTS | PROCEDURES Consultations: none Procedures: CT of abdomen - HOSPITAL COURSE Hospital Course: The patient is a 72-year-old female with past medical history significant for cyclical vomiting syndrome, paranoid disorder, who presented to the ER with generalized abdominal pain and vomiting for 4 days' duration. She was admitted for electrolyte imbalances and mild dehydration into observation. She had reported to the ER provider that she had fever, chills, cough with productive sputum. She did not exhibit these symptoms during treatment. She had been admitted for multiple times with similar symptoms. She had a hiatal hernia on CT and no other radiographic significant abnormality. She was given potassium supplementation with IV and IVF for gentle hydration. At admission her BUN to creatinine ratio is greater than 20, with a BUN of 40 and creatinine 1.2. She was hydrated and repeat CMP showed improvement in kidney function. Urinalysis revealed concentrated urine of greater than 1.030. and no UTI. She had no growth with urine culture and no symptoms of UTI. She continued on home medications for blood pressure and hypothyroidism. She was placed on DVT prophylaxis with Lovenox and SCDs. On second day of admission, she was wanting to be discharged home to be able to eat and felt significantly better with no signs of vomiting or nausea. Her potassium was low at 2.6 but states that she will continue to take potassium supplements. She was given three prescriptions for phenergan, zofran and potassium. Her vital signs were stable and she was discharged home with instructions for followup with PCP or return to the ER if symptoms reoccur or worsen. She verbally understood. - ALLERGIES Allergies/Adverse Reactions: Allergies Allergy/AdvReac Type Severity Reaction Status Date / Time haloperidol [From Haldol] Allergy Unknown Verified 07/22/17 04:27 haloperidol lactate * Allergy Unknown Verified 07/22/17 04:27 [From Haldol] - MEDICATIONS Home Medications: Ambulatory Orders Medication Instructions Recorded Confirmed Hydrochlorothiazide 25 mg PO DAILY 06/01/17 07/22/17 Levothyroxine [Synthroid] 150 mcg ORAL DAILY 06/01/17 07/22/17 Omeprazole 40 mg ORAL DAILY 06/01/17 07/22/17 Quetiapine Fumarate [Quetiapine 25 mg PO BID 06/01/17 07/22/17 Fumarate ER] Sucralfate [Carafate] 1 gm PO ACHS #60 tablet 06/02/17 07/22/17 Ondansetron Odt [Zofran Odt] 4 mg TL Q6H PRN #12 tablet 07/23/17 Potassium Chloride [K-Dur] 20 meq PO DAILYWM #20 tablet 07/23/17 Promethazine [Phenergan] 25 mg PO Q6HR PRN #20 tablet 07/23/17 - PHYSICAL EXAM AT DISCHARGE General Appearance: positive: No acute distress, Alert Eyes Bilateral: positive: Normal inspection, PERRL, EOMI ENT: positive: ENT inspection nml, Pharynx nml, No signs of dehydration Neck: positive: Nml inspection, Thyroid nml, No JVD Respiratory: positive: Chest non-tender, No respiratory distress, Breath sounds nml Cardiovascular: positive: Regular rate & rhythm, No murmur, No gallop Peripheral Pulses: positive: 2+ Abdomen: positive: Non-tender, No organomegaly, Nml bowel sounds, No distention. negative: Tenderness Back: positive: Nml inspection. negative: CVA tenderness (R), CVA tenderness (L ) Skin: positive: Color nml, No rash, Warm, Dry Extremities: positive: Non-tender, Full ROM, Nml appearance Neurologic/Psychiatric: positive: Oriented x3, CN's nml (2-12), Motor nml, Sensation nml, Mood/affect nml - LABS Result Diagrams: 07/23/17 05:34 07/23/17 05:34 Other Lab Results: Abnormal Lab Results 07/22/17 07/22/17 07/22/17 04:38 05:00 05:00 WBC 11.9 x10^3/uL H x10^3/uL (4.8-10.8) RBC Hgb Hct Neut # 10.6 10^3/uL H 10^3/uL (1.5-6.6) Lymph # 0.8 10^3/uL L 10^3/uL (1.5-3.5) Potassium 2.5 mmol/L L* mmol/L (3.5-5.0) Chloride 96 mmol/L L mmol/L (101-111) BUN 40 mg/dL H mg/dL (6-20) Creatinine 1.2 mg/dL H mg/dL (0.4-1.0) Estimated GFR (MDRD) 44 L (>89) Glucose 183 mg/dL H mg/dL (70-100) Calcium Total Bilirubin 1.2 mg/dL H mg/dL (0.2-1.0) Total Protein Albumin Lipase 16 U/L L U/L (22-51) Ur Specific [place] >=1.030 H (1.002-1.030) Urine Protein 100 mg/dL H mg/dL (NEGATIVE) 07/23/17 07/23/17 05:34 05:34 WBC RBC 3.63 10^6/uL L 10^6/uL (4.20-5.40) Hgb 10.7 g/dL L g/dL (12.0-16.0) Hct 32.9 % L % (37.0-47.0) Neut # Lymph # Potassium 2.6 mmol/L L mmol/L (3.5-5.0) Chloride BUN 24 mg/dL H mg/dL (6-20) Creatinine Estimated GFR (MDRD) 82 L (>89) Glucose 107 mg/dL H mg/dL (70-100) Calcium 7.8 mg/dL L mg/dL (8.5-10.3) Total Bilirubin Total Protein 5.5 g/dL L g/dL (6.7-8.2) Albumin 3.0 g/dL L g/dL (3.2-5.5) Lipase Ur Specific [place] Urine Protein - DIAGNOSTIC IMAGING Diagnostic Imaging Results: Final report reviewed - FOLLOW UP Follow Up: Patient wanted to be discharged home today even though her potassium was still low. She had an appointment that she needed to be at today and needed discharge home by 10am. patient was discharged home with strict instructions to take potassium and nausea medications as prescribed - TIME SPENT Time Spent in Discharge (Minutes): 45 (on planning, assessment and education)"
[2017-07-23 07:57] VITALS: BP 142/70
[2017-07-23] MEDS ORDERED: hydroCHLOROthiazide 25 MG TABLET PO SCH (09:00)
[2017-07-23] MEDS ORDERED: POLYETHYLENE GLYCOL 3350 17 GM PACKET PO SCH (09:00)
[2017-07-23] MEDS: QUEtiapine 25 MG TABLET PO SCH ×2 (09:44→09:46)
[2017-07-23] MEDS ORDERED: PROMETHAZINE 25 MG TABLET PO PRN (10:31)
[2017-07-23] MEDS ORDERED: ONDANSETRON ODT 4 MG TABLET TL PRN (10:32)
== END 2017-07-23 10:05 | disposition home or self-care (01) ==
LOC: EDBD → ED 04:18 → OBS 11:22
PROVIDERS: ADMIT Nurse Practitioner Gerontology; ATTEND Nurse Practitioner
DX: K31.89 Other diseases of stomach and duodenum (principal); R11.2 Nausea with vomiting, unspecified; E86.0 Dehydration; I10 Essential (primary) hypertension; E66.09 Other obesity due to excess calories; Z68.35 Body mass index [BMI] 35.0-35.9, adult; E87.6 Hypokalemia; K29.70 Gastritis, unspecified, without bleeding; E03.9 Hypothyroidism, unspecified; N17.9 Acute kidney failure, unspecified; K44.9 Diaphragmatic hernia without obstruction or gangrene; K21.9 Gastro-esophageal reflux disease without esophagitis; F22 Delusional disorders
CPT/HCPCS: 36415; 71010; 80053; 81001; 83690; 83735; 84443; 85025; 96365; 96367; 96372; 96375; 99284; A9270; G0378; J2060; J7040; 81003; 87086

== ENCOUNTER 2017-07-28 10:55 | Outpatient (CLI) | payer MEDICARE, MEDICAID | END 2017-07-28 10:56 | disposition critical access hospital (66) | LOC: EMS 10:55 | PROVIDERS: ATTEND Surgery | DX: R11.2 Nausea with vomiting, unspecified (principal); R10.9 Unspecified abdominal pain | CPT/HCPCS: A0425; A0427 ==

== ENCOUNTER 2017-07-28 11:33 | Observation (INO) | payer MEDICARE, MEDICAID ==
[2017-07-28] MEDS ORDERED: ONDANSETRON 4 MG/2 ML VIAL IVP STA (11:45)
[2017-07-28] MEDS ORDERED: FAMOTIDINE 20 MG/50 ML 50 ML IV ONE ×2 (11:45→11:54)
[2017-07-28] MEDS ORDERED: SODIUM CHLORIDE FLUSH 0.9% 10 ML SYRINGE IVP ONE ×2 (11:54→13:58)
[2017-07-28] MEDS ORDERED: ONDANSETRON 4 MG/2 ML VIAL ONE (11:54)
--- NOTE | 2017-07-28 12:05 | ED Physician Documentation ---
History of Present Illness - Stated complaint Stated Complaint: ABD PX - Chief complaint Chief Complaint: Abd Pain - Additonal information Additional information: hx from pt 72 f per EMR hx cyclic vomiting syndrome seen in ED 07/22 for NV upper abd pain, neg CT, low K, dehydrated, intractable, admitted and dced next day with rx phenergan returns to day with NV upper abd pain but this time vomitign blood and bloody BM no blood thinners denies liver dz and varices denies EtOH NSAID asa Review of Systems Constitutional: denies: Fever, Chills Cardiac: denies: Chest pain / pressure, Palpitations Respiratory: denies: Dyspnea, Cough GI: reports: Abdominal Pain, Nausea, Vomiting, Hematemesis, Bloody / black stool. denies: Diarrhea : denies: Dysuria Endocrine: denies: Easy bruising / bleeding Immunocompromised: denies: Immunocompromised PD PAST MEDICAL HISTORY - Past Medical History Cardiovascular: Hypertension Respiratory: Asthma Neuro: None Endocrine/Autoimmune: HyPOthyroidism GI: GERD, Hiatal hernia : None HEENT: None Psych: Anxiety Musculoskeletal: Osteoarthritis - Past Surgical History Past Surgical History: Yes General: Appendectomy, Bowel surgery - Present Medications Home Medications: Ambulatory Orders Medication Instructions Recorded Confirmed Hydrochlorothiazide 25 mg PO DAILY 06/01/17 07/28/17 Levothyroxine [Synthroid] 150 mcg ORAL DAILY 06/01/17 07/28/17 Omeprazole 40 mg ORAL DAILY 06/01/17 07/28/17 Quetiapine Fumarate [Quetiapine 25 mg PO BID 06/01/17 07/28/17 Fumarate ER] Sucralfate [Carafate] 1 gm PO ACHS #60 tablet 06/02/17 07/28/17 Ondansetron Odt [Zofran Odt] 4 mg TL Q6H PRN #12 tablet 07/23/17 07/28/17 Promethazine [Phenergan] 25 mg PO Q6HR PRN #20 tablet 07/23/17 07/28/17 - Allergies Allergies/Adverse Reactions: Allergies Allergy/AdvReac Type Severity Reaction Status Date / Time haloperidol [From Haldol] Allergy Unknown Verified 07/22/17 04:27 haloperidol lactate * Allergy Unknown Verified 07/22/17 04:27 [From Haldol] - Social History Does the pt smoke?: No Smoking Status: Former smoker Does the pt drink ETOH?: No Does the pt have substance abuse?: No - Immunizations Immunizations are current?: Yes - POLST Patient has POLST: No POLST Status: Full Code (pt state she want full code) PD ED PE NORMAL - Vitals Vital signs reviewed: Yes - General General: Alert and oriented X 3 - HEENT HEENT: PERRL - Neck Neck: Supple, no meningeal sign - Cardiac Cardiac: RRR - Respiratory Respiratory: No respiratory distress, Clear bilaterally - Abdomen Abdomen: Soft, Other (upper abd TTP L > R no peritoneal signs) - Rectal Rectal: Other (no stool in vault to test) - Derm Derm: Normal color - Extremities Extremities: No deformity - Neuro Neuro: Alert and oriented X 3 Results - Vitals Vitals: Vital Signs - 24 hr 07/28/17 07/28/17 11:32 12:32 Temperature 36.4 C L Heart Rate 85 83 Respiratory 18 20 Rate Blood Pressure 193/90 H 198/97 H O2 Saturation 94 96 Oxygen O2 Source Room air - Labs Labs: Laboratory Tests 07/28/17 07/28/17 07/28/17 12:24 12:24 12:24 WBC 11.3 H RBC 4.46 Hgb 13.0 Hct 39.6 MCV 88.8 MCH 29.3 MCHC 33.0 RDW 13.7 Plt Count 290 MPV 8.8 Neut # 10.2 H Lymph # 0.7 L Lyman # 0.4 Eos # 0.0 Baso # 0.0 Absolute Nucleated RBC 0.00 Nucleated RBCs 0.0 Sodium 138 Potassium 4.1 Chloride 99 L Carbon Dioxide 28 Anion Gap 11.0 BUN 18 Creatinine 0.9 Estimated GFR (MDRD) 62 L Glucose 192 H Calcium 9.2 Total Bilirubin 0.4 AST 18 ALT 20 Alkaline Phosphatase 67 Total Protein 7.7 Albumin 3.9 Globulin 3.8 Albumin/Globulin Ratio 1.0 Lipase 44 Ethyl Alcohol Blood Type A POSITIVE Antibody Screen NEGATIVE 07/28/17 12:24 WBC RBC Hgb Hct MCV MCH MCHC RDW Plt Count MPV Neut # Lymph # Lyman # Eos # Baso # Absolute Nucleated RBC Nucleated RBCs Sodium Potassium Chloride Carbon Dioxide Anion Gap BUN Creatinine Estimated GFR (MDRD) Glucose Calcium Total Bilirubin AST ALT Alkaline Phosphatase Total Protein Albumin Globulin Albumin/Globulin Ratio Lipase Ethyl Alcohol < 5.0 Blood Type Antibody Screen PD MEDICAL DECISION MAKING - ED course ED course: upper GIB stable VS and Hgb at this time but continuing to vomit blood (gastroccult +) rectal occult blood neg but no stool to test and pt reports bloody BM 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
[2017-07-28 12:43] LABS: BASOPHILS % (AUTO) 0.4 %; EOSINOPHILS % (AUTO) 0.1 %; HCT - HEMATOCRIT 39.6 % (37.0-47.0); LYMPHOCYTES # (AUTO) 0.7 10^3/uL (1.5-3.5); MEAN CORPUSCULAR HEMOGLOBIN 29.3 pg (27.0-31.0); MEAN CORPUSCULAR VOLUME 88.8 fL (81.0-99.0); MEAN PLATELET VOLUME 8.8 fL (7.9-10.8); MONOCYTES # (AUTO) 0.4 10^3/uL (0.0-1.0); MONOCYTES % (AUTO) 3.1 %; NEUTROPHILS # (AUTO) 10.2 10^3/uL (1.5-6.6); NEUTROPHILS % (AUTO) 90.4 %; RED BLOOD COUNT 4.46 10^6/uL (4.20-5.40); RED CELL DISTRIBUTION WIDTH 13.7 % (12.0-15.0); UNCORRECTED WHITE BLOOD COUNT 11.3 x10^3/uL; WHITE BLOOD COUNT 11.3 x10^3/uL (4.8-10.8)
[2017-07-28 12:57] LABS: BILIRUBIN,TOTAL 0.4 mg/dL (0.2-1.0); CALCIUM 9.2 mg/dL (8.5-10.3); CREATININE 0.9 mg/dL (0.4-1.0); POTASSIUM 4.1 mmol/L (3.5-5.0); TOTAL PROTEIN 7.7 g/dL (6.7-8.2)
[2017-07-28] MEDS ORDERED: PROMETHAZINE INJ 25 MG in SODIUM CHLORIDE 0.9% 50 ML IV STA ×2 (13:50→14:00)
[2017-07-28] MEDS ORDERED: PROMETHAZINE 25 MG/1 ML VIAL ONE (13:57)
[2017-07-28] MEDS ORDERED: SODIUM CHLORIDE FLUSH 0.9% 10 ML SYRINGE IVP PRN (15:01)
[2017-07-28] MEDS ORDERED: ACETAMINOPHEN 325 MG TABLET PO PRN (15:01)
[2017-07-28] MEDS ORDERED: ONDANSETRON 4 MG/2 ML VIAL IVP PRN (15:01)
[2017-07-28] MEDS ORDERED: IOPAMIDOL-300 100 ML VIAL ONE (15:41)
[2017-07-28 16:28] LABS: HEMOGLOBIN A1C 0.58 g/dL
[2017-07-28] MEDS ORDERED: IOPAMIDOL-300 100 ML VIAL IVP ONE (16:38)
[2017-07-28] MEDS: GI COCKTAIL 120 ML BOTTLE PO SCH ×2 (16:50→18:30)
[2017-07-28] MEDS: PANTOPRAZOLE 40 MG VIAL IVP SCH (16:50)
[2017-07-28] MEDS: SODIUM CHLORIDE FLUSH 0.9% 10 ML SYRINGE IVP SCH (16:50)
[2017-07-28] MEDS: D5.45NS W/20 MEQ KCL 1,000 ML IV SCH (16:50)
[2017-07-28] MEDS ORDERED: PROMETHAZINE INJ 25 MG in SODIUM CHLORIDE 0.9% 50 ML IV PRN (18:29)
[2017-07-28] MEDS ORDERED: PROCHLORPERAZINE 10 MG/2 ML VIAL IVP PRN (18:30)
[2017-07-28 18:47] LABS: BILIRUBIN,URINE NEGATIVE (NEGATIVE)
[2017-07-28] MEDS: SUCRALFATE 1 GM/10 ML UDC PO SCH ×2 (18:51→21:54)
[2017-07-28 18:55] LABS: WBC,URINE 0-3 /HPF (0-5)
--- NOTE | 2017-07-28 19:08 | CT Preliminary Report ---
Exam: CT Abdomen/Pelvis W/ IMPRESSION: 1. No acute findings in the abdomen and pelvis. 2. Moderate hiatal hernia. 3. Scattered colonic diverticula without CT evidence of acute diverticulitis. [facility] SITE ID: [id number]
--- NOTE | 2017-07-28 19:10 | CT Report ---
EXAM: CT ABDOMEN AND PELVIS EXAM DATE: 07/28/2017 04:45 PM. CLINICAL HISTORY: Upper GI bleed. COMPARISONS: 06/01/2017. TECHNIQUE: Routine helical CT imaging was performed through the abdomen and pelvis. IV contrast: 100 mL Isovue 300. Enteric contrast: No. Reconstructions: Coronal and sagittal. In accordance with CT protocol optimization, one or more of the following dose reduction techniques w ere utilized for this exam: automated exposure control, adjustment of mA and/or KV based on patient s ize, or use of iterative reconstructive technique. FINDINGS: Lung Bases: Unremarkable. Liver: Hypodensity in the hepatic dome, incompletely characterized but most likely a cyst or hemangio ma. Liver is otherwise unremarkable in appearance. Gallbladder/Bile Ducts: Unremarkable. Spleen: Normal. Pancreas: Normal. Adrenal Glands: Normal. Kidneys: Normal. No masses or hydronephrosis. Peritoneal Cavity/Bowel: Moderate hiatal hernia. Scattered chronic diverticula without CT evidence of acute diverticulitis. Surgical clips at the base of cecum; the appendix is not discretely visualized . Correlate clinically with prior appendectomy. No free fluid, free air or adenopathy. No masses or a cute inflammatory process. Pelvic Organs: Normal. The bladder and visualized pelvic organs are within normal limits. Vasculature: No aneurysms or other significant abnormality. Bones: Degenerative changes in the spine, worst at L4 and L5. No destructive osseous lesion. Other: None. IMPRESSION: 1. No acute findings in the abdomen and pelvis. 2. Moderate hiatal hernia. 3. Scattered colonic diverticula without CT evidence of acute diverticulitis. [facility] Referring Provider Line: [phone] SITE ID: [id number]
--- NOTE | 2017-07-28 19:39 | HISTORY & PHYSICAL EXAMINATION ---
DATE OF ADMISSION: 07/28/2017 CHIEF COMPLAINT: Vomiting blood. HISTORY OF PRESENT ILLNESS: The patient is a 72-year-old well known to the hospital team female who presented to the ER with a complaint of vomiting blood x1 day. The patient has stated that she has had similar symptoms in the past. She was just recently discharged approximately 5 days ago with similar symptoms and cyclic vomiting and nausea. The patient was admitted under observation status for similar symptoms. She left AMA the next morning. The patient states that today she has had abdominal discomfort with intractable vomiting. She states that she has had about 5 or 6 episodes of vomiting, all of which have had blood with them. While patient was in the ER, the ER provider stated that she saw patient vomiting blood. Guaiac was done and was positive for blood in emesis. The patient does not have any occult blood in stools since the ER provider stated that patient had no stool in her rectal vault. The patient states that she lives alone and that she was not able to care for herself today in her home because it was too messy and she felt too sick to remain there. She came in by ambulance service. The patient denies chest pain, numbness or tingling to extremities, constipation or diarrhea, headache, dizziness, lightheadedness. The patient does have a history of hiatal hernia and on CT approximately 3 months ago, back in May, it was noted that she did have a relatively large hiatal hernia. While in the ER, Surgery was consulted for an EGD to be done in the morning. Dr. Laura Cope was contacted and stated that she would be able to take patient to the OR for an EGD in the morning. The patient will have serial H and H's, will receive IV fluids for gentle hydration and be kept n.p.o. status at this time. The patient does have a significant psychiatric history and was noted to also be causing herself to vomit on last admission. This was witnessed by staff members. The patient was also given IV promethazine and Zofran while in the ER. The patient will be admitted into observation status. ALLERGIES: HALDOL. HOME MEDICATION 1. Hydrochlorothiazide 25 mg p.o. tablet daily. 2. Omeprazole 40 mg oral tablet daily. 3. Quetiapine fumarate 50 mg extended release p.o. b.i.d. 4. Synthroid 150 mcg tablet oral daily. 5. Phenergan 25 mg p.o. q.6 hours, prescribed by me at last admission. 6. Carafate 1 mg p.o. morning and night. 7. Zofran 4 mg q.6 hours p.r.n., prescribed by me at last admission. Unknown at this time whether patient has been compliant with these medications since discharge approximately 5 days ago. PAST MEDICAL HISTORY 1. Hiatal hernia. 2. GERD. 3. Bipolar disorder. 4. Obesity with BMI greater than 35, with excessive caloric intake. 5. Asthma. 6. Hypothyroidism. 7. Hypertension. 8. Osteoarthritis of multiple joints. PAST SURGICAL HISTORY 1. Appendectomy. 2. Bowel surgery. FAMILY HISTORY: Patient states that she has had 3 children. She did lose her approximately 42 years ago. She does have a home in [place]; however , she does not reside there. Apparently, she resides in an apartment somewhere on [facility]. It has been reported at one time that she was homeless. She does not presently work at this time. PAST SOCIAL HISTORY: The patient states that she does not drink alcohol nor does she use any illicit drugs and she does not take any prescribed narcotics. Of note, patient has not had any formal workup or drug screen done. REVIEW OF SYSTEMS: Ten systems have been reviewed as negative with the exceptions discussed in the HPI prior. She does admit to hematochezia and intractable vomiting. Denies constipation or diarrhea. PHYSICAL EXAMINATION CONSTITUTIONAL: The patient is alert and in no acute distress. EYES: Pupils are equal, round and react to light and accommodation. Conjunctivae and sclerae was nonicteric, not injected. EARS, NOSE AND THROAT: Nares were patent. No nasal discharge. Oropharynx has no masses, exudates or lesions noted. NECK: Supple, with no thyromegaly. RESPIRATORY: Breath sounds were clear and equal bilaterally to auscultation and percussion. There were no retractions or nasal flaring and no increased work of breathing. No wheezes, rhonchi, or crackles were noted. CARDIOVASCULAR: Sinus rate and rhythm. S1, S2 were noted. No murmurs. JVD was not present. GASTROINTESTINAL: Abdomen was obese, nontender with palpation. Bowel sounds were noted in upper left quadrant, nondistended. SKIN: Warm, dry, intact. Normal turgor. No evidence of any rashes, lesions, or cellulitis. NEUROLOGIC: The patient was alert. Cranial nerves 2 through 7 were grossly intact. Sensory is intact. PSYCHIATRIC: The patient was lethargic, flat affect, uncooperative at times with answering questions. She was oriented x3. HEMATOLOGIC: No active bleeding noted, however, was noted in emesis bag to be pink-tinged mucus. No vomit. Otherwise, patient was hemodynamically stable with a hemoglobin of 13.0. LYMPHATICS: No cervical, axillary, supraclavicular lymphadenopathy was noted. GENITOURINARY: The patient had no CVA tenderness. No masses were palpated or bladder distention. LABORATORY DATA: I personally reviewed the laboratory and diagnostic data in the medical records. They are as follows: Sodium is 138, potassium 4.1, chloride 99, carbon dioxide 28, estimated GFR was 62, glucose of 192. Tox screen is pending at this time. WBC is 11.3, hemoglobin 13, neutrophils 10.2 lymphocytes 0.7. Urinalysis is also pending at this time. DIAGNOSTICS: The patient's pending a CT of the abdomen and pelvis at this time. IMPRESSION AND PLAN 1. Acute hematochezia with possible upper gastrointestinal bleeding secondary to hiatal hernia on CT scan. Plan: Patient was admitted in observation status. The patient will undergo a CT of abdomen and pelvis to review for other additional acute process and reason for upper GI bleed. Surgery has been consulted for an upper GI scope in the morning. The patient will be kept n.p.o. status. She has been started on Protonix 40 mg IV b.i.d. We will hold all home medications at this time. The patient will be given IV Phenergan and Zofran. IV fluids D5 one-half normal saline with 20 potassium will be started. 2. Acute on chronic cyclical vomiting syndrome. Plan: Patient will continue on IV Zofran and Phenergan and Compazine p.r.n. if needed. Daily labs will be monitored, along with electrolytes and CBC. Replace electrolytes as needed. Continue to monitor for any bloody emesis. 3. Essential benign hypertension. Plan: The patient normally is on hydralazine and clonidine; however, we will hold medications until after EGD is done. We will continue to monitor vital signs and IV blood pressure medications for systolics greater than 180. 4. Obesity with body mass index greater than 35, with excessive caloric intake. Plan: Patient will be counseled on nutrition and weight management. Daily weights requested. The patient did have an elevated blood glucose of 196. Hemoglobin A1c has been requested. 5. Acute hyperglycemia without diagnosis of diabetes mellitus. Plan: Hemoglobin A1c requested. We will continue to monitor with CBC and if necessary place the patient on sliding scale insulin with Accu-Cheks a.c. and at bedtime and diabetic diet. 6. Chronic bipolar disorder. Plan: The patient will be monitored for behavioral changes. We will hold psych medication until after her EGD tomorrow and then we will resume. 7. Deep venous thrombosis prophylaxis: Foot pumps. We will hold Lovenox due to GI bleed. 8. STATUS: The patient has a FULL CODE STATUS. HIGH RISK/RISK ASSESSMENT/DISPOSITION: The patient is high risk for worsening comorbidities. She will require IV medication with high risk for toxicity and additional diagnostics have been requested. The patient is on observation status at this time; however, after CT of abdomen and pelvis to determine whether the patient will meet criteria for inpatient status. TIME SPENT: Time spent on the admission for assessment planning and education was 40 minutes. JOB #: [id number] EXT JOB #:[id number] TIM
[2017-07-28] MEDS ORDERED: QUEtiapine 25 MG TABLET PO SCH (21:00)
[2017-07-28] MEDS ORDERED: SODIUM CHLORIDE 0.9% 50 ML IV ONE (22:05)
[2017-07-29] MEDS: D5.45NS W/20 MEQ KCL 1,000 ML IV SCH ×2 (02:49→14:33)
[2017-07-29 06:06] LABS: BASOPHILS # (AUTO) 0.1 10^3/uL (0.0-0.1); BASOPHILS % (AUTO) 0.9 %; EOSINOPHILS # (AUTO) 0.1 10^3/uL (0.0-0.7); EOSINOPHILS % (AUTO) 0.7 %; HCT - HEMATOCRIT 37.3 % (37.0-47.0); HGB - HEMOGLOBIN 12.2 g/dL (12.0-16.0); LYMPHOCYTES # (AUTO) 1.8 10^3/uL (1.5-3.5); MEAN CORPUSCULAR HEMOGLOBIN 29.3 pg (27.0-31.0); MEAN CORPUSCULAR HGB CONC 32.6 g/dL (32.0-36.0); MEAN CORPUSCULAR VOLUME 89.8 fL (81.0-99.0); MEAN PLATELET VOLUME 8.7 fL (7.9-10.8); MONOCYTES # (AUTO) 0.9 10^3/uL (0.0-1.0); MONOCYTES % (AUTO) 10.2 %; NEUTROPHILS % (AUTO) 68.2 %; RED BLOOD COUNT 4.15 10^6/uL (4.20-5.40); UNCORRECTED WHITE BLOOD COUNT 8.8 x10^3/uL; WHITE BLOOD COUNT 8.8 x10^3/uL (4.8-10.8)
[2017-07-29 06:17] LABS: ALBUMIN/GLOBULIN RATIO 0.9 (1.0-2.2); BILIRUBIN,TOTAL 0.6 mg/dL (0.2-1.0); CALCIUM 8.2 mg/dL (8.5-10.3); CREATININE 0.8 mg/dL (0.4-1.0); POTASSIUM 3.3 mmol/L (3.5-5.0); TOTAL PROTEIN 6.8 g/dL (6.7-8.2)
[2017-07-29] MEDS: SODIUM CHLORIDE FLUSH 0.9% 10 ML SYRINGE IVP SCH ×2 (06:33→14:33)
[2017-07-29] MEDS: SUCRALFATE 1 GM/10 ML UDC PO SCH ×2 (06:33→14:33)
[2017-07-29] MEDS: PANTOPRAZOLE 40 MG VIAL IVP SCH (06:33)
[2017-07-29] MEDS ORDERED: POLYETHYLENE GLYCOL 3350 17 GM PACKET PO SCH (09:00)
[2017-07-29] MEDS ORDERED: LEVOTHYROXINE 75 MCG TABLET PO SCH (09:00)
--- NOTE | 2017-07-29 13:27 | Discharge Plan ---
Discharge Plan Disposition: Home, Self Care Condition: Good Prescriptions: Promethazine [Phenergan] 25 mg PO Q6HR PRN #20 tablet PRN Reason: Nausea / Vomiting Potassium Chloride [Klor-Con M20] 20 meq PO DAILY #15 tab.er.prt Ondansetron Odt [Zofran Odt] 4 mg TL Q6H PRN #12 tablet PRN Reason: Nausea / Vomiting Diet: Regular Activity Restrictions: No Restrictions Shower Restrictions: No Driving Restrictions: No Assistance Devices: Walker Weight Bearing: Full Weight Additional Instructions or Follow Up instructions: Please continue to take all home medications as prescribed. You need to followup with primary care provider within 1-2 days of discharge. You have been given two prescriptions for nausea and vomiting. You need to followup with a GI specialist since you have a hiatal hernia and will need followup for how to manage your gastroesophageal reflux disease. Return to the ER if you have fever, or worsening of symptoms. Call 911 if you have chest pain or shortness of breath. No Smoking: If you smoke, Please STOP! Call for help. Follow-up with: Danisha Greco PA-C [Provider Admit Priv/Credential] -
[2017-07-29] MEDS ORDERED: POTASSIUM CHLORIDE 20 MEQ TABLET PO SCH (14:00)
[2017-07-29] MEDS ORDERED: LACTATED RINGERS 1,000 ML IV ONE (14:15)
[2017-07-29] MEDS ORDERED: LIDO GARGLE 30 ML BOTTLE TOP ONE (14:20)
[2017-07-29] MEDS ORDERED: BENZOCAINE/TETRACAINE/BUTAMBEN SPRAY 56 GM TOP ONE (14:20)
[2017-07-29] MEDS ORDERED: fentaNYL 100 MCG/2 ML VIAL IVP ONE (14:30)
[2017-07-29] MEDS ORDERED: MIDAZOLAM 2 MG/2 ML VIAL IVP ONE (14:30)
[2017-07-29] MEDS ORDERED: SODIUM CHLORIDE 0.9% 500 ML IV ONE (15:09)
[2017-07-29 16:40] VITALS: BP 133/65
--- NOTE | 2017-07-29 16:42 | DISCHARGE SUMMARY ---
"Discharge Summary Admit Date: 07/28/17 Discharge Date: 07/29/17 Discharging Provider: Elsa Serrato APRN Primary Care Provider: Angus Code Status: Attempt Resuscitation Condition at Discharge: Good Discharge Disposition: 01 Home, Self Care Discharge Facility Name: home - DIAGNOSES Admission Diagnoses: 1. Acute upper GI bleeding 2. Acute cyclic vomiting syndrome 3. chronic psychiatric disorder, unspecified 4. GERD Discharge Diagnoses with Status of Each Condition: 1. Acute upper GI bleeding with gastritis 2. Acute cyclic vomiting syndrome with hypokalemia from loss 3. chronic psychiatric disorder, unspecified 4. chronic GERD 5. Obesity with BMI greater thatn 35 with excessive caloric intake - HPI History of Present Illness: Patient is a 72 year old female admitted thru the ER for complaint of nausea and vomiting blood today. She was released with the same complaint 5 days prior. While in the ER she was guiac positive for emesis and consult with surgery agreed to do an EGD the next morning. She was observation with NPO at midnight. She was on compazine, zofan and phenergan IV. She was on these medications at home but was noncompliant. Her hemoglobin was stable at 14 and she had no events of emesis overnight nor was she nauseous. Dr Sales did a upper EGD the next morning of admission and found only a moderate hiatal hernia with no blood seen in the upper GI tract. She did have some mild espophagitis upon exam while in the ER. She remained afebrile and vital signs stable. She was hydrated with IVF NS during her stay. She had no significant electrolyte imbalances with a mild hypokalemia that was corrected with oral potassium. She was given instructions to see her PCP as a followup and for worsening of GI symptoms she would need a referral to a GI specialist. She has been given referrals in the past for same specialist and not gone to them. She was given prescriptions for antiemetics at discharge. She was on foot pumps for DVT prophylaxis - CONSULTS | PROCEDURES Consultations: surgery for EGD Procedures: EGD: Impression showed no acute bleeding with moderate sized hiatal hernia - HOSPITAL COURSE Hospital Course: Patient is a 72 year old female who was discharged 5 days ago for same symptoms , vomiting and nausea. Patient has GERD and medication noncompliance. - ALLERGIES Allergies/Adverse Reactions: Allergies Allergy/AdvReac Type Severity Reaction Status Date / Time haloperidol [From Haldol] Allergy Unknown Verified 07/22/17 04:27 haloperidol lactate * Allergy Unknown Verified 07/22/17 04:27 [From Haldol] - MEDICATIONS Home Medications: Ambulatory Orders Medication Instructions Recorded Confirmed Hydrochlorothiazide 25 mg PO DAILY 06/01/17 07/28/17 Levothyroxine [Synthroid] 150 mcg ORAL DAILY 06/01/17 07/28/17 Omeprazole 40 mg ORAL DAILY 06/01/17 07/28/17 Quetiapine Fumarate [Quetiapine 25 mg PO BID 06/01/17 07/28/17 Fumarate ER] Sucralfate [Carafate] 1 gm PO ACHS #60 tablet 06/02/17 07/28/17 Ondansetron Odt [Zofran Odt] 4 mg TL Q6H PRN #12 tablet 07/29/17 Potassium Chloride [Klor-Con M20] 20 meq PO DAILY #15 tab.er.prt 07/29/17 Promethazine [Phenergan] 25 mg PO Q6HR PRN #20 tablet 07/29/17 - PHYSICAL EXAM AT DISCHARGE General Appearance: positive: No acute distress, Alert Eyes Bilateral: positive: Normal inspection, PERRL ENT: positive: ENT inspection nml, Pharynx nml, No signs of dehydration Neck: positive: Nml inspection, Thyroid nml, No JVD Respiratory: positive: Chest non-tender, No respiratory distress, Breath sounds nml Cardiovascular: positive: Regular rate & rhythm, No murmur, No gallop Peripheral Pulses: positive: 2+ Abdomen: positive: Non-tender, No organomegaly, Nml bowel sounds, No distention Back: positive: Nml inspection. negative: CVA tenderness (R), CVA tenderness (L ) Skin: positive: Color nml, No rash, Warm, Dry Extremities: positive: Non-tender, Full ROM, Nml appearance Neurologic/Psychiatric: positive: Oriented x3, CN's nml (2-12), Motor nml, Sensation nml, Mood/affect nml - LABS Result Diagrams: 07/29/17 05:47 07/29/17 05:47 Other Lab Results: Abnormal Lab Results 07/28/17 07/28/17 07/28/17 12:24 12:24 12:24 WBC 11.3 x10^3/uL H x10^3/uL (4.8-10.8) RBC Neut # 10.2 10^3/uL H 10^3/uL (1.5-6.6) Lymph # 0.7 10^3/uL L 10^3/uL (1.5-3.5) Potassium Chloride 99 mmol/L L mmol/L (101-111) BUN Estimated GFR (MDRD) 62 L (>89) Glucose 192 mg/dL H mg/dL (70-100) Estim Average Glucose 123 H (70-100) Calcium Albumin/Globulin Ratio Urine pH Ur Squamous Epith Cells 07/28/17 07/29/17 07/29/17 18:44 05:47 05:47 WBC RBC 4.15 10^6/uL L 10^6/uL (4.20-5.40) Neut # Lymph # Potassium 3.3 mmol/L L mmol/L (3.5-5.0) Chloride BUN 21 mg/dL H mg/dL (6-20) Estimated GFR (MDRD) 71 L (>89) Glucose 129 mg/dL H mg/dL (70-100) Estim Average Glucose Calcium 8.2 mg/dL L mg/dL (8.5-10.3) Albumin/Globulin Ratio 0.9 L (1.0-2.2) Urine pH 8.0 PH H PH (5.0-7.5) Ur Squamous Epith Cells MOD Squamous H (<= Few) - DIAGNOSTIC IMAGING Diagnostic Imaging Results: Final report reviewed - FOLLOW UP Follow Up: patient was instructed to see primary care provider in 2-3 days of discharge. She was discharged home with taxi after she was stable from the EGD and alert and vital signs stable. She was given a bolus of IVF prior to going home for hydration. She was alert and oriented and gait was stable. Patient stated she has a community that has medical call bells in the home if she should need medical help. She was given prescriptions for nausea and for vomiting. - TIME SPENT Time Spent in Discharge (Minutes): 45 (assessment planning and education)"
[2017-07-29] MEDS ORDERED: QUEtiapine 25 MG TABLET PO SCH (21:00)
--- NOTE | 2017-07-29 23:44 | CONSULTATION NOTE ---
DATE OF CONSULTATION: REQUESTING PROVIDER: I am called in consultation by Dr. Serrato to evaluate this 72-year-old female for hematemesis. DATE OF ADMISSION: 07/28/2017 HISTORY OF PRESENT ILLNESS: The patient was admitted from the emergency department with a complaint of hematemesis. Much of the history was obtained from the chart as the patient has, I believe, bipolar disorder and she is difficult to keep focused on the history at hand. At any rate, the patient came in through the emergency department on July 28, 2017. She had been seen apparently numerous times in the past with nausea and vomiting. The patient apparently told the ER physician that she vomited up blood and had a bloody bowel movement. The patient is not on any blood thinners and denies any liver disease or varices. She denies alcohol use or nonsteroidal anti-inflammatory drugs. ALLERGIES: HALOPERIDOL. MEDICATIONS 1. Hydrochlorothiazide 25 mg p.o. daily. 2. Levothyroxine 150 mcg p.o. daily. 3. Omeprazole 40 mg p.o. daily. 4. Quetiapine fumarate 25 mg p.o. b.i.d. 5. Sucralfate 1 gram p.o. a.c. and at bedtime. 6. Zofran 4 mg q.6 hours as needed. 7. Phenergan 25 mg p.o. q.6 hours as needed. PAST MEDICAL AND SURGICAL HISTORY: Includes 1. Hypertension. 2. Asthma. 3. Hypothyroidism. 4. GERD. 5. Hiatal hernia 6. Anxiety. 7. Osteoarthritis. 8. Appendectomy. 9. Bowel surgery. The nature of the bowel surgery is unclear to me. SOCIAL HISTORY 1. She is a former smoker. 2. She denies alcohol use. 3. She denies recreational drug use. FAMILY HISTORY: Not asked, as it is not contributory to this disease process. REVIEW OF SYSTEMS: A very limited review of systems was performed by me. CONSTITUTIONAL: The patient denies fever or chills. CARDIAC: She denies chest pain or pressure. RESPIRATORY: She denies dyspnea or productive cough. GENITOURINARY: She denies dysuria. ENDOCRINE: She denies easy bleeding or bruising. GASTROINTESTINAL: Essentially and diffusely positive. PHYSICAL EXAMINATION: The patient was examined in room 2214 in [facility]'s Observation Unit. GENERAL: She is a 72-year-old female who appears her stated age. She is well- developed and well-nourished. She is in no acute distress. Her mood and affect appear appropriate, but again, she appears to confabulate and is very difficult to get focused on giving a history. VITAL SIGNS: Please refer to the nursing note. HEENT: She is normocephalic, atraumatic. Her sclerae are noninjected, nonicteric. Her mucous membranes are pink, slightly dry. NECK: Supple without mass or bruits. HEART: Regular rate and rhythm without rub, murmur or gallop. LUNGS: Clear to auscultation bilaterally. ABDOMEN: Obese, soft, nontender. There is no palpable hepatosplenomegaly. She does have normoactive bowel sounds. RECTAL: Deferred. EXTREMITIES: No clubbing, cyanosis, or edema. GAIT: Not evaluated. PSYCHIATRIC: The patient is alert and oriented to person, place and time. Her mood and affect do appear appropriate, but she is very difficult to get focused on the history at hand. Sequential CBCs showed that the hemoglobin did not significantly drop from admission. She came in at 13.0. She went up to 14.0 and down to 12.2, which are all statistically normal and do not reveal an acute or massive upper GI bleed. Abnormalities on chemistries today include a potassium of 3.3, BUN of 21, GFR of 71, glucose of 129, calcium of 8.2, and albumin and globulin ratio of 8 and 0.9. Her urine was positive for a pH of 8 and moderate squamous epithelium. Her toxicology studies were all negative. Abdominopelvic CT done on July 28, 2017, and read by Dr. Chavez was read as no acute findings in the abdomen and pelvis, moderate hiatal hernia, scattered colonic diverticula without CT evidence for acute diverticulitis. ASSESSMENT: A 72-year-old female with a history of gastrointestinal bleed only per the patient. Apparently, she was tested and was Hemoccult positive, but again, any small amount of blood, biting her cheek, biting her tongue, will make the vomitus Hemoccult positive. The review of the hemoglobin and hematocrit do not suggest that there was any acute or significant bleeding. PLAN: In order to ensure that there is no issue, an esophagogastroduodenoscopy with possible biopsies and/or polypectomies was planned. The indications, procedure, alternatives and possible complications, including but not limited to perforation requiring operative repair, bleeding with all of its risks, including transfusion and , were fully explained to the patient and all questions were answered. Verbal and written consent was obtained. The patient was n.p.o. in preparation for this. There are no contraindications to giving conscious sedation. I asked the patient to let us know if there is any way we can make her stay at [facility] more comfortable, to please let us know. Please note that 45 minutes of [id number] time was spent with the patient, mostly in discussion as well as in the generation of this note. JOB #: [id number] EXT JOB #:[id number] TIM
== END 2017-07-29 16:30 | disposition home or self-care (01) ==
LOC: EDBD → ED 11:33 → OBS 15:02
PROVIDERS: ADMIT Nurse Practitioner; ATTEND Nurse Practitioner
PROC: 0DB58ZX Excision of Esophagus, Via Natural or Artificial Opening Endoscopic, Diagnostic (ICD-10-PCS; principal; 2017-07-29 12:45)
DX: K29.01 Acute gastritis with bleeding (principal); K31.89 Other diseases of stomach and duodenum; R11.2 Nausea with vomiting, unspecified; E87.6 Hypokalemia; F31.9 Bipolar disorder, unspecified; K21.0 Gastro-esophageal reflux disease with esophagitis; E66.09 Other obesity due to excess calories; Z68.38 Body mass index [BMI] 38.0-38.9, adult; K44.9 Diaphragmatic hernia without obstruction or gangrene; I10 Essential (primary) hypertension; E03.9 Hypothyroidism, unspecified; R73.9 Hyperglycemia, unspecified; F41.9 Anxiety disorder, unspecified; J45.909 Unspecified asthma, uncomplicated; Z87.891 Personal history of nicotine dependence; Z71.3 Dietary counseling and surveillance; Z91.14 Patient's other noncompliance with medication regimen
CPT/HCPCS: 36415; 43239; 74177; 80053; 80306; 81001; 83036; 83690; 83735; 85018; 85025; 86850; 86900; 86901; 88305; 96365; 96375; 96376; 99284; A9270; G0378; G0480; J7040; J7120; Q9967; 80320

== ENCOUNTER 2017-09-30 10:59 | Inpatient (IN) | payer MEDICARE, MEDICAID ==
[2017-09-30 11:27] LABS: BASOPHILS % (AUTO) 0.2 %; HCT - HEMATOCRIT 43.1 % (37.0-47.0); HGB - HEMOGLOBIN 14.2 g/dL (12.0-16.0); LYMPHOCYTES # (AUTO) 0.8 10^3/uL (1.5-3.5); LYMPHOCYTES % (AUTO) 6.1 %; MEAN CORPUSCULAR HEMOGLOBIN 28.9 pg (27.0-31.0); MEAN CORPUSCULAR VOLUME 87.6 fL (81.0-99.0); MEAN PLATELET VOLUME 8.5 fL (7.9-10.8); MONOCYTES # (AUTO) 0.6 10^3/uL (0.0-1.0); MONOCYTES % (AUTO) 4.6 %; NEUTROPHILS # (AUTO) 11.3 10^3/uL (1.5-6.6); NEUTROPHILS % (AUTO) 89.1 %; RED BLOOD COUNT 4.92 10^6/uL (4.20-5.40); RED CELL DISTRIBUTION WIDTH 14.1 % (12.0-15.0); UNCORRECTED WHITE BLOOD COUNT 12.7 x10^3/uL; WHITE BLOOD COUNT 12.7 x10^3/uL (4.8-10.8)
[2017-09-30 11:38] LABS: ALBUMIN/GLOBULIN RATIO 1.1 (1.0-2.2); BILIRUBIN,TOTAL 0.7 mg/dL (0.2-1.0); CALCIUM 9.7 mg/dL (8.5-10.3); CREATININE 1.4 mg/dL (0.4-1.0); POTASSIUM 2.8 mmol/L (3.5-5.0); TOTAL PROTEIN 8.4 g/dL (6.7-8.2)
[2017-09-30] MEDS ORDERED: ONDANSETRON 4 MG/2 ML VIAL IVP STA ×3 (11:38→14:54)
[2017-09-30] MEDS ORDERED: ONDANSETRON 4 MG/2 ML VIAL ONE ×3 (11:49→15:36)
[2017-09-30] MEDS ORDERED: SODIUM CHLORIDE 0.9% 1,000 ML IV ONE (12:06)
[2017-09-30] MEDS ORDERED: PROMETHAZINE INJ 25 MG in SODIUM CHLORIDE 0.9% 50 ML IV STA (12:20)
[2017-09-30] MEDS ORDERED: POTASSIUM CHLOR 10 MEQ/100 ML 10 MEQ/100 ML BAG IV ONE ×2 (12:20→13:08)
[2017-09-30] MEDS ORDERED: LACTATED RINGERS 1,000 ML IV STA (12:20)
[2017-09-30] MEDS ORDERED: PANTOPRAZOLE 40 MG VIAL IVP STA (12:20)
--- NOTE | 2017-09-30 12:21 | ED Physician Documentation ---
History of Present Illness - Stated complaint Stated Complaint: N/V - Chief complaint Chief Complaint: General - History obtained from History obtained from: Patient - History of Present Illness Timing: Other (89-year-old woman with history of esophagitis and hiatal hernia. She has been admitted a few times this year for intractable vomiting. She is not currently taking omeprazole, doctor in [place] told her that she should not take it because of side effects. She is taking Phenergan and recently ran out of her Zofran. For the last 3-4 days she has been vomiting, it has been dark and she has had a normal bowel movement and then some diarrhea but now has not had a bowel movement in a couple of days. Initially there was no pain, now she has some upper abdominal pain with it.) Review of Systems Ten Systems: 10 systems reviewed and negative Constitutional: denies: Fever, Chills Ears: reports: Reviewed and negative Throat: reports: Reviewed and negative Cardiac: reports: Reviewed and negative Respiratory: reports: Reviewed and negative PD PAST MEDICAL HISTORY - Past Medical History Cardiovascular: Hypertension Respiratory: Asthma Neuro: None Endocrine/Autoimmune: HyPOthyroidism GI: GERD, Hiatal hernia : None HEENT: None Psych: Anxiety Musculoskeletal: Osteoarthritis - Past Surgical History Past Surgical History: Yes General: Appendectomy, Bowel surgery - Present Medications Home Medications: Ambulatory Orders Medication Instructions Recorded Confirmed Levothyroxine [Synthroid] 150 mcg ORAL DAILY 06/01/17 07/28/17 Quetiapine Fumarate [Quetiapine 25 mg PO BID 06/01/17 07/28/17 Fumarate ER] hydroCHLOROthiazide 25 mg PO DAILY 06/01/17 09/30/17 [Hydrochlorothiazide] Ondansetron Odt [Zofran Odt] 4 mg TL Q6H PRN #12 tablet 07/29/17 Promethazine [Phenergan] 25 mg PO Q6HR PRN #20 tablet 07/29/17 - Allergies Allergies/Adverse Reactions: Allergies Allergy/AdvReac Type Severity Reaction Status Date / Time amoxicillin Allergy Unknown Verified 09/30/17 11:08 haloperidol [From Haldol] Allergy Unknown Verified 07/22/17 04:27 haloperidol lactate * Allergy Unknown Verified 07/22/17 04:27 [From Haldol] lisinopril Allergy Unknown Verified 09/30/17 11:08 - Social History Does the pt smoke?: No Smoking Status: Never smoker Does the pt drink ETOH?: No Does the pt have substance abuse?: No - Family History Family history: reports: Non contributory - Immunizations Immunizations are current?: Yes - POLST Patient has POLST: No POLST Status: Full Code (pt state she want full code) PD ED PE NORMAL - Vitals Vital signs reviewed: Yes - General General: Alert and oriented X 3, No acute distress - HEENT HEENT: PERRL, EOMI, Other (Dry mucous membranes) - Neck Neck: Supple, no meningeal sign, No bony TTP - Cardiac Cardiac: RRR, No murmur - Respiratory Respiratory: No respiratory distress, Clear bilaterally - Abdomen Abdomen: Normal bowel sounds, Soft, Non tender - Back Back: No CVA TTP, No spinal TTP - Derm Derm: Normal color, Warm and dry - Extremities Extremities: No edema, No calf tenderness / cord - Neuro Neuro: Alert and oriented X 3, Normal speech - Psych Psych: Normal mood, Normal affect Results - Vitals Vitals: Vital Signs - 24 hr 09/30/17 09/30/17 11:05 13:32 Temperature 36.6 C Heart Rate 88 84 Respiratory 16 16 Rate Blood Pressure 151/98 H 166/85 H O2 Saturation 95 94 Oxygen O2 Source Room air - Labs Labs: Laboratory Tests 09/30/17 09/30/17 11:21 11:21 WBC 12.7 H RBC 4.92 Hgb 14.2 Hct 43.1 MCV 87.6 MCH 28.9 MCHC 33.0 RDW 14.1 Plt Count 321 MPV 8.5 Neut # 11.3 H Lymph # 0.8 L [place] # 0.6 Eos # 0.0 Baso # 0.0 Absolute Nucleated RBC 0.00 Nucleated RBC % 0.0 Sodium 138 Potassium 2.8 L Chloride 92 L Carbon Dioxide 30 Anion Gap 16.0 H BUN 37 H Creatinine 1.4 H Estimated GFR (MDRD) 37 L Glucose 181 H Calcium 9.7 Total Bilirubin 0.7 AST 22 ALT 20 Alkaline Phosphatase 69 Total Protein 8.4 H Albumin 4.4 Globulin 4.0 Albumin/Globulin Ratio 1.1 Lipase 22 PD MEDICAL DECISION MAKING - ED course ED course: 72-year-old woman with recurrent vomiting issue presents with same. There is evidence of significant dehydration and acute renal injury on labs. Despite multiple rounds of medications we were unable to control her nausea in the department, and call was placed to hospitalist for admission at 2:55 PM. Departure - Departure Disposition: ED Place in Observation Clinical Impression: Dehydration, Hypokalemia, Acute renal injury Vomiting Qualifiers: Vomiting type: cyclical vomiting Vomiting Intractability: intractable Nausea presence: with nausea Qualified Code(s): G43.A1 - Cyclical vomiting, intractable Cyclical vomiting syndrome Qualifiers: Vomiting Intractability: intractable Nausea presence: with nausea Qualified Code(s): G43.A1 - Cyclical vomiting, intractable Condition: Serious
[2017-09-30] MEDS ORDERED: PANTOPRAZOLE 40 MG VIAL ONE (13:08)
[2017-09-30] MEDS ORDERED: PROMETHAZINE 25 MG/1 ML VIAL ONE (13:08)
[2017-09-30] MEDS ORDERED: ZOLPIDEM 5 MG TABLET PO PRN (15:55)
--- NOTE | 2017-09-30 16:41 | HISTORY & PHYSICAL EXAMINATION ---
Chief Complaint - Chief Complaint Chief Complaint: nausea and vomiting History of Present Illness - Admitted From Admitted From:: ER - History Obtained From History obtained from: Pt - History of Present Illness HPI Comment/Other: this is 72-year-old Female with history of intractable nausea and vomiting, esophagitis, hiatal hernia, HTN, Asthma, Hypothyroidism, GERD, anxiety , Osteoarthritis, who present ER for evaluation of nausea and vomiting. She has been admitted a few times this year for the same problem of intractable nausea and vomiting. Pt had EGD on Jul of this year without significan finding except small gstric ucler.Pt report she is currently not taking omeprazole, because the doctor in [place] told her that she should not take it because of side effects. For the past 3-4 days pt state she had uncontrolled nausea and vomiting. PT report she is taking Phenergan and recently ran out of her Zofran. Pt report she had diarrhea on yesterday but not today. She did not have bowel movement today. Pt also report she had on and off mild upper gastric pain. Pt denies fever, chill, cough, chest pain, shortness of breathing, GI bleeding, hematemesis, dysuria, hematuria, vision issue. Lab test reveals elevated WBC, potassium 2.8, BUN 37, creatinine 1.4. History - Past Medical History Cardiovascular: reports: Hypertension Respiratory: reports: Asthma Neuro: reports: None Endocrine/Autoimmune: reports: HyPOthyroidism GI: reports: GERD, Hiatal hernia : reports: None HEENT: reports: None Psych: reports: Anxiety Musculoskeletal: reports: Osteoarthritis MRSA Hx?: No - Past Surgical History General: reports: Appendectomy, Bowel surgery - Family & Social History Social History Notes: pt report she had a home at [facility], not homeless - Substance History Use: Uses substance without health or social issues: NONE Abuse: Recurrent use of substance despite neg consequences: NONE - POLST Patient has POLST: No POLST Status: Full Code (pt state she want full code) Meds/Allgy - Home Medications Home Medications: Ambulatory Orders Medication Instructions Recorded Confirmed Levothyroxine [Synthroid] 150 mcg ORAL DAILY 06/01/17 07/28/17 Quetiapine Fumarate [Quetiapine 25 mg PO BID 06/01/17 09/30/17 Fumarate ER] hydroCHLOROthiazide 25 mg PO DAILY 06/01/17 09/30/17 [Hydrochlorothiazide] Ondansetron Odt [Zofran Odt] 4 mg TL Q6H PRN #12 tablet 07/29/17 Promethazine [Phenergan] 25 mg PO Q6HR PRN #20 tablet 07/29/17 - Allergies Allergies/Adverse Reactions: Allergies Allergy/AdvReac Type Severity Reaction Status Date / Time amoxicillin Allergy Unknown Verified 09/30/17 11:08 haloperidol [From Haldol] Allergy Unknown Verified 07/22/17 04:27 haloperidol lactate * Allergy Unknown Verified 07/22/17 04:27 [From Haldol] lisinopril Allergy Unknown Verified 09/30/17 11:08 Review of Systems - Constitutional Constitutional: reports: Fatigue. denies: Fever, Chills, Malaise, Poor appetite , Diaphoresis, Night sweats - Eyes Eyes: denies: Pain, Irritation, Amaurosis, Blurred vision, Spots in vision, Field loss, Vision loss, Dipolpia - Ears, Nose & Throat Ears, Nose & Throat: denies: Ear pain, Hearing loss, Hearing aids, Tinnitus, Vertigo, Nasal pain, Nasal discharge, Nosebleeds, Nasal congestion, Postnasal drainage, Dentures, Sore throat, Mouth lesions, Bleeding gums - Cardiovascular Cariovascular: denies: Irregular heart rate, Palpitations, Chest pain, Edema, Lightheadedness, Syncope, Exertional dyspnea, Decr. exercise tolerance - Respiratory Respiratory: denies: Cough, Sputum production, Wheezing, Snoring, Hemoptysis, Orthopnea, SOB at rest, SOB with exertion - Gastrointestinal Gastrointestinal: reports: Abdominal pain, Diarrhea, Nausea, Vomiting. denies: Abdominal distention, Constipation, Change in bowel habits, Rectal bleeding, Black stools, Bloody stools, Bile emesis, Walter blood emesis, Coffee grounds emesis, Reflux/heartburn, Bloating, Poor appetite - Genitourinary Genitourinary: denies: Dysuria, Frequency, Urgency, Hematuria, Incontinence, Flank pain, Nocturia, Urethral discharge - Musculoskeletal Musculoskeletal: denies: Muscle pain, Back pain, Muscle aches, Stiffness, Limited range of motion, Muscle weakness, Gout, Joint pain - Integumentary Integumentary: denies: Rash, Pruritis, Lesions, Dryness, Lumps, Acne, Pigment changes, Nail changes - Neurological Neurological: denies: General weakness, Focal weakness, Headache, Dizziness, Numbness, Memory problems, Pre-existing deficit, Abnormal gait, Seizures, Incoordination, Slurred speech - Psychiatric Psychiatric: denies: Depression, Anxiety, Suicidal, Delusions, Hallucinations, Homicidal - Endocrine Endocrine: denies: Polyuria, Polydypsia, Polyphagia, Intolerance to cold, Intolerance to heat - Hematologic/Lymphatic Hematologic/Lymphatic: denies: Anemia, Bruising, Petechiae, Blood clots, Lymphadenopathy, Bleeding tendencies, Recurrent infections Exam - Vital Signs Reviewed Vital Signs: Yes - Physical Exam General Appearance: positive: No acute distress, Alert. negative: Lethargic Eyes Bilateral: positive: Normal inspection, PERRL, No lid inflammation, Conjunctivae nml ENT: positive: ENT inspection nml, Pharynx nml, No signs of dehydration. negative: Purulent nasal drainage, Pharyngeal erythema, Oral lesions Neck: positive: Nml inspection, Thyroid nml, No JVD, Trachea midline. negative : Thyromegaly, Lymphadenopathy (R), Lymphadenopathy (L), Stiff neck, Carotid bruit, Swelling/bruising, Tracheal deviation Respiratory: positive: Chest non-tender, No respiratory distress, Breath sounds nml. negative: Wheezes, Rales, Rhonchi Cardiovascular: positive: Regular rate & rhythm, No murmur, No gallop. negative : Irregularly irregular, Extrasystoles, Tachycardia, Bradycardia, JVD present, Systolic murmur, Diastolic murmur Peripheral Pulses: positive: 2+ Abdomen: positive: Non-tender, No organomegaly, Nml bowel sounds, No distention. negative: Tenderness, Guarding, Rebound Back: positive: Nml inspection. negative: CVA tenderness (R), CVA tenderness (L ) Skin: positive: Color nml, No rash, Warm, Dry. negative: Cyanosis, Diaphoresis , Pallor, Skin rash Extremities: positive: Non-tender, Full ROM, Nml appearance. negative: Calf tenderness, Joint swelling, Davina's sign/cords Neurologic/Psychiatric: positive: Oriented x3, Motor nml, Sensation nml, Mood/ affect nml. negative: Sensory loss, Facial droop, Slurred/abnml speech, Depressed mood/affect Conclusion/Plan - Problem List (1) Cyclical vomiting syndrome Conclusion/Plan: pt had intractable N/V for a few times this year antiemesis support IVF vital monitor clear diet Qualifiers: Vomiting Intractability: intractable Nausea presence: with nausea Qualified Code(s): G43.A1 - Cyclical vomiting, intractable (2) Acute renal injury Conclusion/Plan: pt's creatinine at Sep. this year is 0.8. it appear pt has dehydration check total CK, follow up hydration with IVF. pt already had 2000 ml fluid at ER daily lab vital check (3) Hypokalemia Conclusion/Plan: replace of Potassium daily lab check EKG PRN (4) Hypothyroidism Conclusion/Plan: check TSH, resume home Levothyioxine after reconciliation. (5) Hypertension Conclusion/Plan: resume home HCTZ vital monitor Qualifiers: Hypertension type: essential hypertension Qualified Code(s): I10 - Essential (primary) hypertension (6) DVT prophylaxis Conclusion/Plan: SCD and Heparin (7) Do not intubate, cardiopulmonary resuscitation (CPR)-only code status Conclusion/Plan: pt request code status: DNR - Lab Results Fish Bones: 09/30/17 11:21 09/30/17 11:21 Issues/Core Measures - Anticipated LOS Anticipated Stay Length: Less than 2 midnights
[2017-09-30] MEDS: SODIUM CHLORIDE FLUSH 0.9% 10 ML SYRINGE IVP PRN ×2 (16:58→19:32)
[2017-09-30] MEDS: SODIUM CHLORIDE 0.9% 1,000 ML IV SCH (16:58)
[2017-09-30] MEDS: POTASSIUM CHLOR 10 MEQ/100 ML 10 MEQ/100 ML BAG IV SCH ×2 (17:06→18:12)
[2017-09-30 18:53] LABS: BILIRUBIN,URINE NEGATIVE (NEGATIVE); PH,URINE 6.5 PH (5.0-7.5)
[2017-09-30] MEDS: PROCHLORPERAZINE 10 MG/2 ML VIAL IVP PRN (19:32)
[2017-09-30] MEDS: HEPARIN 5,000 UNIT/ML VIAL SUBQ SCH (21:06)
[2017-09-30] MEDS: SODIUM CHLORIDE FLUSH 0.9% 10 ML SYRINGE IVP SCH (22:43)
[2017-10-01] MEDS: SODIUM CHLORIDE 0.9% 1,000 ML IV SCH (01:13)
[2017-10-01] MEDS: PROCHLORPERAZINE 10 MG/2 ML VIAL IVP PRN (01:43)
[2017-10-01 06:13] LABS: BASOPHILS % (AUTO) 0.2 %; HGB - HEMOGLOBIN 12.1 g/dL (12.0-16.0); LYMPHOCYTES # (AUTO) 1.1 10^3/uL (1.5-3.5); LYMPHOCYTES % (AUTO) 12.7 %; MEAN CORPUSCULAR HEMOGLOBIN 29.4 pg (27.0-31.0); MEAN CORPUSCULAR HGB CONC 32.6 g/dL (32.0-36.0); MEAN CORPUSCULAR VOLUME 90.3 fL (81.0-99.0); MEAN PLATELET VOLUME 8.9 fL (7.9-10.8); MONOCYTES # (AUTO) 0.6 10^3/uL (0.0-1.0); MONOCYTES % (AUTO) 7.7 %; NEUTROPHILS # (AUTO) 6.7 10^3/uL (1.5-6.6); NEUTROPHILS % (AUTO) 79.4 %; NUCLEATED RED BLOOD CELLS AUTO 0.1 /100WBC; UNCORRECTED WHITE BLOOD COUNT 8.4 x10^3/uL; WHITE BLOOD COUNT 8.4 x10^3/uL (4.8-10.8)
[2017-10-01 06:24] LABS: ALBUMIN/GLOBULIN RATIO 1.1 (1.0-2.2); BILIRUBIN,TOTAL 0.7 mg/dL (0.2-1.0); CALCIUM 8.3 mg/dL (8.5-10.3); CREATININE 0.8 mg/dL (0.4-1.0); MAGNESIUM 1.7 mg/dL (1.7-2.8); POTASSIUM 2.6 mmol/L (3.5-5.0); TOTAL PROTEIN 6.3 g/dL (6.7-8.2)
[2017-10-01] MEDS: PANTOPRAZOLE 40 MG VIAL IVP SCH (06:52)
[2017-10-01] MEDS: SODIUM CHLORIDE FLUSH 0.9% 10 ML SYRINGE IVP SCH ×3 (06:52→21:25)
[2017-10-01] MEDS: ONDANSETRON 4 MG/2 ML VIAL IVP PRN ×3 (06:55→17:48)
[2017-10-01] MEDS ORDERED: POTASSIUM CHLORIDE 20 MEQ TABLET PO SCH (08:00)
[2017-10-01] MEDS ORDERED: PROCHLORPERAZINE 25 MG SUPP PR PRN (08:03)
[2017-10-01] MEDS ORDERED: ALPRAZolam 0.25 MG TABLET PO PRN (08:03)
[2017-10-01] MEDS: NS W/20 MEQ KCL 1,000 ML IV SCH ×2 (08:18→16:55)
[2017-10-01] MEDS: HEPARIN 5,000 UNIT/ML VIAL SUBQ SCH ×2 (08:30→21:18)
[2017-10-01] MEDS: POLYETHYLENE GLYCOL 3350 17 GM PACKET PO SCH (09:59)
[2017-10-01] MEDS: SUCRALFATE 1 GM/10 ML UDC PO SCH ×4 (10:06→21:18)
[2017-10-01] MEDS: QUEtiapine 25 MG TABLET PO SCH ×2 (10:06→21:23)
[2017-10-01] MEDS: hydroCHLOROthiazide 25 MG TABLET PO SCH (13:32)
--- NOTE | 2017-10-01 18:14 | PROVIDER PROGRESS NOTE ---
Subjective - Prog Note Date Prog Note Date: 10/01/17 Prog Note Time: 12:00 - Subjective Pt reports feeling: Improved Subjective: Chel was still throwing up this AM and complains of ongoing N/V. She denies SOB, chest pain, or a new cough. Current Medications - Current Medications Current Medications: Active Medications Generic Name Dose Route Start Last Admin Trade Name Freq PRN Reason Stop Dose Admin Alprazolam 0.25 mg 10/01/17 08:03 Xanax PO Q6HR PRN Anxiety Heparin Sodium (Porcine) 5,000 unit 09/30/17 21:00 10/01/17 08:30 SUBQ 5,000 unit BID NETTE Administration Hydrochlorothiazide 25 mg 10/01/17 09:00 10/01/17 13:32 Hydrodiuril PO Not Given DAILY NETTE Potassium Chloride/Sodium Chloride 1,000 mls @ 125 mls/hr 10/01/17 08:00 16:55 Normal Saline 0.9% W/20 Meq Kcl IV 125 mls/hr .Q8H NETTE Administration Potassium Chloride 10 meq in 100 mls @ 100 mls/hr 10/01/17 18:30 Potassium Chloride IV 10/01/17 22:29 Q1H NETTE Ondansetron HCl 4 mg 09/30/17 15:55 10/01/17 17:48 Zofran Inj IVP 4 mg Q6HR PRN Administration Nausea / Vomiting Pantoprazole Sodium 40 mg 10/01/17 07:00 10/01/17 06:52 Protonix IVP 40 mg QDAC NETTE Administration Polyethylene Glycol 17 gm 10/01/17 09:00 10/01/17 09:59 Miralax PO Not Given DAILY NETTE Prochlorperazine Edisylate 10 mg 09/30/17 15:55 10/01/17 01:43 Compazine Inj IVP 10 mg Q6HR PRN Administration Nausea / Vomiting Prochlorperazine Maleate 25 mg 10/01/17 08:03 10/01/17 08:25 Compazine Supp [place] 25 mg TID PRN Administration Nausea / Vomiting Quetiapine Fumarate 25 mg 10/01/17 09:00 10/01/17 10:06 Seroquel PO Not Given BID NETTE Sodium Chloride 10 ml 09/30/17 15:55 09/30/17 19:32 Normal Saline Flush 0.9% IVP 10 ml PRN PRN Administration NEEDED PER PROVIDER ORDERS Sodium Chloride 10 ml 09/30/17 22:00 10/01/17 13:33 Normal Saline Flush 0.9% IVP Not Given Q8HR NETTE Sucralfate 1 gm 10/01/17 09:00 10/01/17 16:55 Carafate PO 1 gm 0700,1100,1600,2200 NETTE Administration Zolpidem Tartrate 5 mg 09/30/17 15:55 Ambien PO QPM PRN Insomnia Levothyroxine [Synthroid] 150 mcg ORAL DAILY 06/01/17 Quetiapine Fumarate [Quetiapine Fumarate ER] 25 mg PO BID 06/01/17 hydroCHLOROthiazide [Hydrochlorothiazide] 25 mg PO DAILY 06/01/17 Potassium Chloride 20 meq PO DAILY 10/01/17 Objective - Vital Signs/Intake & Output Reviewed Vital Signs: Yes Vital Signs: Vital Signs x48h Temp Pulse Resp BP Pulse Ox 10/01/17 15:49 67 18 122/56 L 95 10/01/17 13:00 37.3 C 82 18 164/101 H 94 Intake & Output: Intake & Output 09/28/17 09/29/17 09/30/17 10/01/17 23:59 23:59 23:59 23:59 Intake Total 440 3035 Output Total 300 350 Balance 140 2685 - Objective General Appearance: positive: No acute distress, Alert Eyes Bilateral: positive: Normal inspection, PERRL ENT: positive: ENT inspection nml, Pharynx nml, Dry mucous membranes Neck: positive: Nml inspection, Thyroid nml, No JVD, Trachea midline Respiratory: positive: Chest non-tender, No respiratory distress, Breath sounds nml Cardiovascular: positive: Regular rate & rhythm, No murmur, No gallop Peripheral Pulses: 2+ Radial (R), 2+ Radial (L) Abdomen: positive: Non-tender, Nml bowel sounds, No distention, Hepatomegaly Back: positive: Nml inspection Skin: positive: Color nml, No rash, Warm, Dry Extremities: positive: Non-tender, Full ROM, Nml appearance, No pedal edema Reflexes: Bicep (R): 3+, Bicep (L): 3+ - Lab Results Fish Bones: 10/01/17 05:36 10/01/17 16:56 Other Labs: Lab Results x24hrs 10/01/17 10/01/17 10/01/17 Range/Units 16:56 08:55 05:36 WBC (4.8-10.8) x10^3/uL RBC (4.20-5.40) 10^6/uL Hgb (12.0-16.0) g/dL Hct (37.0-47.0) % MCV (81.0-99.0) fL MCH (27.0-31.0) pg MCHC (32.0-36.0) g/dL RDW (12.0-15.0) % Plt Count (130-450) 10^3/uL MPV (7.9-10.8) fL Neut # (1.5-6.6) 10^3/uL Lymph # (1.5-3.5) 10^3/uL [place] # (0.0-1.0) 10^3/uL Eos # (0.0-0.7) 10^3/uL Baso # (0.0-0.1) 10^3/uL Absolute Nucleated RBC x10^3/uL Nucleated RBC % /100WBC Sodium (135-145) mmol/L Potassium 2.8 L (3.5-5.0) mmol/L Chloride (101-111) mmol/L Carbon Dioxide (21-32) mmol/L Anion Gap (6-13) BUN (6-20) mg/dL Creatinine (0.4-1.0) mg/dL Estimated GFR (MDRD) (>89) Glucose (70-100) mg/dL Calcium (8.5-10.3) mg/dL Magnesium (1.7-2.8) mg/dL Total Bilirubin (0.2-1.0) mg/dL AST (10-42) IU/L ALT (10-60) IU/L Alkaline Phosphatase (42-121) IU/L Total Creatine Kinase 134 (22-269) IU/L Total Protein (6.7-8.2) g/dL Albumin (3.2-5.5) g/dL Globulin (2.1-4.2) g/dL Albumin/Globulin Ratio (1.0-2.2) TSH 1.26 (0.34-5.60) uIU/mL Urine Color Urine Clarity (CLEAR) Urine pH (5.0-7.5) PH Ur Specific [place] (1.002-1.030) Urine Protein (NEGATIVE) mg/dL Urine Glucose (UA) (NEGATIVE) mg/dL Urine Ketones (NEGATIVE) mg/dL Urine Occult Blood (NEGATIVE) Urine Nitrite (NEGATIVE) Urine Bilirubin (NEGATIVE) Urine Urobilinogen (NORMAL) E.U./dL Ur Leukocyte Esterase (NEGATIVE) 10/01/17 10/01/17 09/30/17 Range/Units 05:36 05:36 18:45 WBC 8.4 (4.8-10.8) x10^3/uL RBC 4.10 L (4.20-5.40) 10^6/uL Hgb 12.1 (12.0-16.0) g/dL Hct 37.0 (37.0-47.0) % MCV 90.3 (81.0-99.0) fL MCH 29.4 (27.0-31.0) pg MCHC 32.6 (32.0-36.0) g/dL RDW 14.0 (12.0-15.0) % Plt Count 272 (130-450) 10^3/uL MPV 8.9 (7.9-10.8) fL Neut # 6.7 H (1.5-6.6) 10^3/uL Lymph # 1.1 L (1.5-3.5) 10^3/uL [place] # 0.6 (0.0-1.0) 10^3/uL Eos # 0.0 (0.0-0.7) 10^3/uL Baso # 0.0 (0.0-0.1) 10^3/uL Absolute Nucleated RBC 0.01 x10^3/uL Nucleated RBC % 0.1 /100WBC Sodium 140 (135-145) mmol/L Potassium 2.6 L (3.5-5.0) mmol/L Chloride 103 (101-111) mmol/L Carbon Dioxide 28 (21-32) mmol/L Anion Gap 9.0 (6-13) BUN 28 H (6-20) mg/dL Creatinine 0.8 (0.4-1.0) mg/dL Estimated GFR (MDRD) 71 L (>89) Glucose 138 H (70-100) mg/dL Calcium 8.3 L (8.5-10.3) mg/dL Magnesium 1.7 (1.7-2.8) mg/dL Total Bilirubin 0.7 (0.2-1.0) mg/dL AST 20 (10-42) IU/L ALT 16 (10-60) IU/L Alkaline Phosphatase 50 (42-121) IU/L Total Creatine Kinase (22-269) IU/L Total Protein 6.3 L (6.7-8.2) g/dL Albumin 3.3 (3.2-5.5) g/dL Globulin 3.0 (2.1-4.2) g/dL Albumin/Globulin Ratio 1.1 (1.0-2.2) TSH (0.34-5.60) uIU/mL Urine Color YELLOW Urine Clarity CLEAR (CLEAR) Urine pH 6.5 (5.0-7.5) PH Ur Specific [place] 1.020 (1.002-1.030) Urine Protein 30 H (NEGATIVE) mg/dL Urine Glucose (UA) NEGATIVE (NEGATIVE) mg/dL Urine Ketones NEGATIVE (NEGATIVE) mg/dL Urine Occult Blood TRACE-LYSE (NEGATIVE) Urine Nitrite NEGATIVE (NEGATIVE) Urine Bilirubin NEGATIVE (NEGATIVE) Urine Urobilinogen 0.2 (NORMAL) (NORMAL) E.U./dL Ur Leukocyte Esterase NEGATIVE (NEGATIVE) - Diagnostic Imaging Diagnostic Imaging Results: positive: Final report reviewed Assessment/Plan - Problem List (1) Acute renal injury Impression: Creatinine was elevated at 1.4 on admission, now improved to 0.8 after IVF therapy. Plan: Continue to monitor labs, and VS. Suspect due to dehydration. (2) Cyclical vomiting syndrome Impression: Patient notes to have started vomiting up to one day prior to admission. Plan: Patient finally got some relief after compazine [place]. Qualifiers: Vomiting Intractability: intractable Nausea presence: with nausea Qualified Code(s): G43.A1 - Cyclical vomiting, intractable (3) Dehydration Impression: As evidenced by ongoing N/V and elevated creatinine. Plan: replace with IVF therapy. (4) Hypokalemia Impression: Patient was found to have a potassium of just 2.6. Suspect d/t continued vomiting. Plan: IVF changed to 20meq included, and 40 Meq riders. Re-check labs in AM. (5) Hypertension Impression: Patient was noted with continued high B/Ps 199/78 was the highest. Suspect due to acute vomiting. Plan: Continue with medical management and monitor VS. Qualifiers: Hypertension type: essential hypertension Qualified Code(s): I10 - Essential (primary) hypertension
[2017-10-01] MEDS: POTASSIUM CHLOR 10 MEQ/100 ML 10 MEQ/100 ML BAG IV SCH ×4 (20:21→23:52)
[2017-10-02] MEDS: SODIUM CHLORIDE FLUSH 0.9% 10 ML SYRINGE IVP PRN ×2 (00:20→06:28)
[2017-10-02] MEDS: NS W/20 MEQ KCL 1,000 ML IV SCH ×2 (01:38→09:01)
[2017-10-02] MEDS ORDERED: A & D OINTMENT 5 GM PACKET TOP PRN (03:29)
[2017-10-02] MEDS: SUCRALFATE 1 GM/10 ML UDC PO SCH ×2 (06:27→11:07)
[2017-10-02] MEDS: PANTOPRAZOLE 40 MG VIAL IVP SCH (06:28)
[2017-10-02] MEDS: SODIUM CHLORIDE FLUSH 0.9% 10 ML SYRINGE IVP SCH ×2 (06:28→11:08)
[2017-10-02] MEDS: POLYETHYLENE GLYCOL 3350 17 GM PACKET PO SCH (08:59)
[2017-10-02] MEDS: hydroCHLOROthiazide 25 MG TABLET PO SCH (09:00)
[2017-10-02] MEDS: QUEtiapine 25 MG TABLET PO SCH (09:02)
[2017-10-02] MEDS: HEPARIN 5,000 UNIT/ML VIAL SUBQ SCH (09:03)
[2017-10-02 10:57] LABS: ALBUMIN/GLOBULIN RATIO 1.1 (1.0-2.2); BILIRUBIN,TOTAL 0.3 mg/dL (0.2-1.0); CREATININE 0.7 mg/dL (0.4-1.0); POTASSIUM 3.1 mmol/L (3.5-5.0); TOTAL PROTEIN 5.5 g/dL (6.7-8.2)
--- NOTE | 2017-10-02 11:05 | Discharge Plan ---
Discharge Plan Disposition: 01 Home, Self Care Condition: Good Prescriptions: Prochlorperazine Supp [Compazine Supp] 25 mg [place] TID PRN #15 supp PRN Reason: Nausea / Vomiting Diet: Regular Activity Restrictions: No Restrictions Shower Restrictions: No Driving Restrictions: No Weight Bearing: Full Weight Additional Instructions or Follow Up instructions: You were admitted for uncontrolled nausea or vomiting. We also found that you were very dehydrated and low on potassium. Please see your PCP in the next few days or early next week as a follow up to this admission. Take all medications as prescribed, I have included a suppository to control your nausea and vomiting if it becomes uncontrollable to prevent dehydration. No Smoking: If you smoke, Please STOP! Call for help. Follow-up with: Danisha Greco PA-C [Primary Care Provider] -
--- NOTE | 2017-10-02 11:06 | DISCHARGE SUMMARY ---
Discharge Summary Admit Date: 09/30/17 Discharge Date: 10/02/17 Discharging Provider: LIVIA Gamble Code Status: Attempt Resuscitation Condition at Discharge: Good Discharge Disposition: 01 Home, Self Care - ALLERGIES Allergies/Adverse Reactions: Allergies Allergy/AdvReac Type Severity Reaction Status Date / Time amoxicillin Allergy Unknown Verified 09/30/17 11:08 haloperidol [From Haldol] Allergy Unknown Verified 07/22/17 04:27 haloperidol lactate * Allergy Unknown Verified 07/22/17 04:27 [From Haldol] lisinopril Allergy Unknown Verified 09/30/17 11:08 - MEDICATIONS Home Medications: Ambulatory Orders Medication Instructions Recorded Confirmed Levothyroxine [Synthroid] 150 mcg ORAL DAILY 06/01/17 10/01/17 Quetiapine Fumarate [Quetiapine 25 mg PO BID 06/01/17 09/30/17 Fumarate ER] hydroCHLOROthiazide 25 mg PO DAILY 06/01/17 09/30/17 [Hydrochlorothiazide] Ondansetron Odt [Zofran Odt] 4 mg TL Q6H PRN #12 tablet 07/29/17 10/01/17 Promethazine [Phenergan] 25 mg PO Q6HR PRN #20 tablet 07/29/17 10/01/17 Potassium Chloride 20 meq PO DAILY 10/01/17 10/01/17 Pantoprazole [Protonix] 40 mg IVP QDAC vial 10/02/17 Prochlorperazine Supp [Compazine 25 mg [place] TID PRN #15 supp 10/02/17 Supp] - PHYSICAL EXAM AT DISCHARGE General Appearance: positive: No acute distress, Alert Eyes Bilateral: positive: Normal inspection, PERRL ENT: positive: ENT inspection nml, Pharynx nml, No signs of dehydration Neck: positive: Nml inspection, Thyroid nml, No JVD, Trachea midline Respiratory: positive: Chest non-tender, No respiratory distress, Breath sounds nml Cardiovascular: positive: Regular rate & rhythm Peripheral Pulses: positive: 2+ Abdomen: positive: Non-tender, No organomegaly, Nml bowel sounds, No distention Back: positive: Nml inspection Skin: positive: Color nml, No rash, Warm, Dry Extremities: positive: Non-tender, Full ROM, Nml appearance, No pedal edema Neurologic/Psychiatric: positive: Oriented x3, CN's nml (2-12), Motor nml, Sensation nml, Mood/affect nml Reflexes: Bicep (R): 3+, Bicep (L): 3+ - LABS Result Diagrams: 10/01/17 05:36 10/02/17 10:41 - DIAGNOSTIC IMAGING Diagnostic Imaging Results: Final report reviewed - FOLLOW UP Follow Up: You were admitted for uncontrolled nausea or vomiting. We also found that you were very dehydrated and low on potassium. Please see your PCP in the next few days or early next week as a follow up to this admission. Take all medications as prescribed, I have included a suppository to control your nausea and vomiting if it becomes uncontrollable to prevent dehydration.
[2017-10-02 16:27] VITALS: BP 152/81
[2017-10-03] MEDS ORDERED: POTASSIUM CHLORIDE 20 MEQ/15 ML UDC PO SCH (08:00)
== END 2017-10-02 19:07 | disposition home or self-care (01) | DRG 392 ==
LOC: EDUNIT# → ED 10:59 → OBS 15:56 → UNDOADMOB 15:56 → MS3 10-01 17:51 → OBSVTOIN 10-01 17:51 → INTOOBSV 10-01 17:51 → OBS 10-01 21:48 → MS3 10-01 21:48
PROVIDERS: ADMIT Nurse Practitioner Gerontology; ATTEND Nurse Practitioner
DX: K31.89 Other diseases of stomach and duodenum (principal); N17.9 Acute kidney failure, unspecified; R11.2 Nausea with vomiting, unspecified; E86.0 Dehydration; E87.6 Hypokalemia; K21.0 Gastro-esophageal reflux disease with esophagitis; K44.9 Diaphragmatic hernia without obstruction or gangrene; I10 Essential (primary) hypertension; E03.9 Hypothyroidism, unspecified; F41.9 Anxiety disorder, unspecified; Z87.11 Personal history of peptic ulcer disease
CPT/HCPCS: 36415; 80048; 80053; 81003; 82550; 83690; 83735; 84132; 84443; 85025; 96361; 96365; 96368; 96372; 96375; 96376; 99284

== ENCOUNTER 2018-03-06 10:47 | Outpatient (CLI) | payer MEDICARE, MEDICAID ==
--- NOTE | 2018-03-06 16:28 | Mammography Report ---
DIAGNOSTIC BILATERAL MAMMOGRAM: 03/06/2018 CLINICAL INDICATION: History of abnormal mammogram. COMPARISON: Outside films dated 08/15/2016, 04/24/2016, 04/03/2013 from [place], [place]. TECHNIQUE: Bilateral CC, MLO, true lateral views. FINDINGS: The breasts demonstrate heterogeneously dense fibroglandular parenchyma bilaterally. Coarse and punctate, typically benign calcifications are present. The dominant circumscribed nodule in the inferior left breast has resolved. Other, smaller circumscribed nodules are stable, no suspicious masses, clustered microcalcifications, or regions of architectural distortion are identified. IMPRESSION: BENIGN FINDINGS. RECOMMENDATION: Routine annual screening unless otherwise clinically indicated. BIRADS CATEGORY 2 BENIGN FINDINGS. STANDARD QUALIFYING STATEMENTS: 1. This examination was reviewed with the aid of Computer-Aided Detection (CAD). 2. A negative or benign imaging report should not delay biopsy if clinically suspicious findings are present. Consider surgical consultation if warranted. More than 5% of cancers are not identified by imaging. 3. Dense breasts may obscure an underlying neoplasm. TD: 03/06/2018 16:27
== END 2018-03-06 10:48 | disposition home or self-care (01) ==
LOC: DI 10:47
PROVIDERS: ATTEND Internal Medicine
DX: R92.8 Other abnormal and inconclusive findings on diagnostic imaging of breast (principal)
CPT/HCPCS: 77066

== ENCOUNTER 2018-04-21 09:56 | Outpatient (CLI) | payer MEDICARE, MEDICAID ==
--- NOTE | 2018-04-21 12:25 | XRAY Report ---
THREE VIEW LUMBAR SPINE: 04/21/2018 CLINICAL INDICATION: Back pain. FINDINGS: AP, lateral, coned down views of the lumbar spine demonstrate moderate degenerative disk and facet disease. There is no evidence of fracture or subluxation. The bowel gas pattern appears unremarkable. IMPRESSION: MODERATE DEGENERATIVE CHANGES. TD: 04/21/2018 11:50
--- NOTE | 2018-04-21 12:27 | XRAY Report ---
COMPLETE CERVICAL SPINE: 04/21/2018 CLINICAL INDICATION: Neck pain. FINDINGS: AP, lateral, oblique, odontoid, swimmer's views of the cervical spine demonstrate moderate degenerative disk and facet disease. There is no evidence of acute fracture or subluxation. There is reversal of the normal cervical lordosis. No significant osseous neural foraminal narrowing is seen. The prevertebral soft tissues are unremarkable. IMPRESSION: DEGENERATIVE CHANGES. NO EVIDENCE OF FRACTURE. TD: 04/21/2018 11:51
== END 2018-04-21 09:57 | disposition home or self-care (01) ==
LOC: DI.S 09:56
PROVIDERS: ATTEND Internal Medicine
DX: M50.30 Other cervical disc degeneration, unspecified cervical region (principal); M47.892 Other spondylosis, cervical region; M51.36 Other intervertebral disc degeneration, lumbar region; M47.896 Other spondylosis, lumbar region
CPT/HCPCS: 72050; 72100

== ENCOUNTER 2018-07-04 12:45 | Outpatient (CLI) | payer MEDICARE, MEDICAID ==
[2018-07-04] MEDS ORDERED: ALBUTEROL NEB 2.5 MG/3 ML INH ONE (14:00)
--- NOTE | 2018-07-04 23:55 | XRAY Report ---
Reason: wheezing, SOA Procedure Date: 07/04/2018 Accession Number: [id number] / [id number] Procedure: XR - Chest 2 View X-Ray CPT Code: 25157 FULL RESULT: EXAM: CHEST RADIOGRAPHY EXAM DATE: 07/04/2018 02:27 PM. CLINICAL HISTORY: Trouble breathing. COMPARISON: CHEST 1 VIEW 07/22/2017 11:52 AM. TECHNIQUE: 2 views. FINDINGS: Lungs/Pleura: No focal opacities evident. No pleural effusion. No pneumothorax. Normal volumes. Mediastinum: Heart and mediastinal contours are unremarkable. Other: No compression fractures. IMPRESSION: Normal 2-view chest radiography. RADIA
== END 2018-07-04 12:46 | disposition home or self-care (01) ==
LOC: RT 12:45 → DI 12:46
PROVIDERS: ATTEND Internal Medicine
DX: J45.909 Unspecified asthma, uncomplicated (principal); J30.1 Allergic rhinitis due to pollen; Z87.891 Personal history of nicotine dependence
CPT/HCPCS: 71046; 94060; 94729

== ENCOUNTER 2020-01-14 10:32 | Outpatient (CLI) | payer MEDICARE, MEDICAID | END 2020-01-14 10:33 | disposition home or self-care (01) | LOC: NS 10:32 | PROVIDERS: ATTEND Internal Medicine | DX: Z71.3 Dietary counseling and surveillance (principal); E11.9 Type 2 diabetes mellitus without complications | CPT/HCPCS: 97802 ==

== ENCOUNTER 2020-01-28 14:13 | Outpatient (CLI) | payer MEDICARE, MEDICAID ==
[2020-01-28 14:51] LABS: BILIRUBIN,URINE NEGATIVE (NEGATIVE); GLUCOSE, URINE (UA) NEGATIVE (NEGATIVE); KETONES,URINE (UA) NEGATIVE (NEGATIVE); LEUKOCYTE ESTERASE, URINE NEGATIVE (NEGATIVE); NITRITE,URINE NEGATIVE (NEGATIVE); OCCULT BLOOD,URINE NEGATIVE (NEGATIVE); PH,URINE 5.5 PH (5.0-7.5); PROTEIN,URINE NEGATIVE (NEGATIVE); UROBILINOGEN,URINE 0.2 (NORMAL) E.U./dL (NORMAL)
[2020-01-28 15:05] LABS: CREATININE,URINE 29.6 mg/dL; MICROALBUM/CREATININE RATIO,UR 16.9 ug/mg (<30.0); MICROALBUMIN,URINE 0.5 mg/dL (0-300.0)
[2020-01-28 15:19] LABS: CLARITY,URINE CLEAR (CLEAR)
[2020-01-28 15:23] LABS: BACTERIA,URINE Rare /HPF (None Seen); RBC,URINE 0-5 /HPF (0-5); SQUAMOUS EPITHELIAL CELL,UR FEW Squamous (<= Few)
[2020-01-28 16:14] LABS: HB2 TOTAL 13.3 g/dL; HEMOGLOBIN A1C 0.73 g/dL; HEMOGLOBIN A1C % 7.2 % (4.6-6.2)
== END 2020-01-28 14:14 | disposition home or self-care (01) ==
LOC: LAB 14:13
PROVIDERS: ATTEND Internal Medicine
DX: Z00.00 Encounter for general adult medical examination without abnormal findings (principal); R30.0 Dysuria; I10 Essential (primary) hypertension; E03.8 Other specified hypothyroidism; E11.65 Type 2 diabetes mellitus with hyperglycemia
CPT/HCPCS: 36415; 81001; 82043; 82570; 83036; 84443; 87086

== ENCOUNTER 2020-07-06 08:12 | Outpatient (CLI) | payer MEDICARE, MEDICAID ==
--- NOTE | 2020-07-06 09:08 | DEXA Report ---
PROCEDURE: Dexa Spine and/or Hip INDICATIONS: POST MENOPAUSAL TECHNIQUE: Dual energy x-ray absorptiometry (DXA) was performed on a VitalsGuard System. Regions measur ed are the AP Spine, femoral neck, and if needed forearm. COMPARISON: None. FINDINGS: Lumbar Spine: Bone Mineral Density 0.954 g/cm/cm,T score -1.9, moderate osteopenia Left Hip: Bone Mineral Density 0.783 g/cm/cm,T score -1.8, moderate osteopenia Left Femoral Neck: Bone Mineral Density 0.666 g/cm/cm, T score -2.7, mild osteoporosis (T score greater or equal to -1.0: NORMAL) (T score from -1.1 to -2.4: OSTEOPENIA) (T score less than or equal to -2.5 to: OSTEOPOROSIS) Impression: Mild osteoporosis within the left femoral neck and osteopenia in the lumbar spine and lef t hip. Patients with diagnosis of osteoporosis or osteopenia should have regular bone mineral density assess ment. For those eligible for Medicare, routine testing is allowed once every 2 years. Testing frequ ency can be increased for patients who have rapidly progressing disease or for those who are receivin g medical therapy to restore bone mass. Reviewed by: Chely Beckford MD on 07/06/2020 9:07 AM PDT Approved by: Chely Beckford MD on 07/06/2020 9:07 AM PDT Station ID: [id number]
--- NOTE | 2020-07-06 11:03 | XRAY Report ---
PROCEDURE: Knee 3 View LT INDICATIONS: KNEE PX TECHNIQUE: 3 views of the left knee(s) were acquired. COMPARISON: None. FINDINGS: Bones: No fractures or dislocations. Diffuse bulky spurring and osteophyte formation. Moderate narro wing of the medial joint space. No suspicious bony lesions. Soft tissues: No joint effusion. No suspicious soft tissue calcifications. IMPRESSION: Moderate left knee joint generation. No interval change since 01/20/2018. Reviewed by: Twan Lindo MD on 07/06/2020 11:02 AM PDT Approved by: Twan Lindo MD on 07/06/2020 11:02 AM PDT Station ID: [id number]
== END 2020-07-06 08:13 | disposition home or self-care (01) ==
LOC: DI 08:12
PROVIDERS: ATTEND Nurse Practitioner Family
DX: Z13.820 Encounter for screening for osteoporosis (principal); M81.0 Age-related osteoporosis without current pathological fracture; M17.12 Unilateral primary osteoarthritis, left knee
CPT/HCPCS: 77080

== ENCOUNTER 2020-09-08 13:36 | Outpatient (CLI) | payer MEDICARE, MEDICAID ==
--- NOTE | 2020-09-13 14:20 | Mammography Report ---
BILATERAL DIGITAL SCREENING MAMMOGRAM 3D/2D: 09/08/2020 CLINICAL: Routine screening. Comparison is made to exams dated: 03/06/2018 mammogram and 08/15/2016 mammogram - [facility]. The tissue of both breasts is heterogeneously dense. This may lower the sensitivity of ma mmography. No significant masses, calcifications, or other findings are seen in either breast. There has been no significant interval change. IMPRESSION: NEGATIVE There is no mammographic evidence of malignancy. A 1 year screening mammogram is recommended. This exam was interpreted at Station ID: [id number]. NOTE: For mammograms, a report in lay terms will be sent to the patient. Approximately 15% of breast malignancies will not be visualized mammographically. In the management of a palpable breast mass, a negative mammogram must not discourage biopsy of a clinically suspicious lesion. Electronically Signed By: James Avendaño M.D. ddp/penrad:09/12/2020 07:37:17 ACR BI-RADS Category 1: Negative [id number] PARENCHYMAL PATTERN: (D) - The breast(s) demonstrate(s) heterogeneously dense fibroglandular parenchy ma. BI-RADS CATEGORY: (1) - 1 RECOMMENDATION: (ANNUAL) - Recommend routine annual screening mammography. [id number] 1 year screening LATERALITY: (B)
== END 2020-09-08 13:37 | disposition home or self-care (01) ==
LOC: DI 13:36
PROVIDERS: ATTEND Internal Medicine
DX: Z00.00 Encounter for general adult medical examination without abnormal findings (principal); Z12.31 Encounter for screening mammogram for malignant neoplasm of breast
CPT/HCPCS: 77063; 77067

== ENCOUNTER 2020-11-01 19:19 | Outpatient (CLI) | payer MEDICARE, MEDICAID | END 2020-11-01 19:20 | disposition EMS.NT | LOC: EMS 19:19 | PROVIDERS: ATTEND Surgery | DX: Z03.89 Encounter for observation for other suspected diseases and conditions ruled out (principal) ==

== ENCOUNTER 2022-05-03 09:59 | Outpatient (CLI) | payer MEDICARE, MEDICAID ==
[2022-05-03 10:16] LABS: BASOPHILS % (AUTO) 0.5 %; EOSINOPHILS # (AUTO) 0.1 10^3/uL (0.0-0.7); EOSINOPHILS % (AUTO) 0.8 %; HCT - HEMATOCRIT 40.1 % (37.0-47.0); HGB - HEMOGLOBIN 12.9 g/dL (12.0-16.0); LYMPHOCYTES # (AUTO) 1.1 10^3/uL (1.5-3.5); LYMPHOCYTES % (AUTO) 16.1 %; MEAN CORPUSCULAR HEMOGLOBIN 29.1 pg (27.0-31.0); MEAN CORPUSCULAR HGB CONC 32.2 g/dL (32.0-36.0); MEAN CORPUSCULAR VOLUME 90.5 fL (81.0-99.0); MEAN PLATELET VOLUME 9.7 fL (7.9-10.8); MONOCYTES # (AUTO) 0.5 10^3/uL (0.0-1.0); MONOCYTES % (AUTO) 7.1 %; NEUTROPHILS % (AUTO) 75.2 %; PLT - PLATELET COUNT 299 10^3/uL (130-450); RED BLOOD COUNT 4.43 10^6/uL (4.20-5.40); RED CELL DISTRIBUTION WIDTH 13.4 % (12.0-15.0); WHITE BLOOD COUNT 6.7 x10^3/uL (4.8-10.8)
[2022-05-03 10:34] LABS: ALBUMIN 4.1 g/dL (3.2-5.5); ALKALINE PHOSPHATASE 70 IU/L (42-121); ALT ALANINE AMINOTRANSFERASE 20 IU/L (10-60); AST ASPARTATE AMINOTRANSFERASE 18 IU/L (10-42); BILIRUBIN,TOTAL 0.7 mg/dL (0.2-1.0); BUN - BLOOD UREA NITROGEN 24 mg/dL (6-20); CALCIUM 9.4 mg/dL (8.5-10.3); CARBON DIOXIDE - CO2 28 mmol/L (21-32); CHLORIDE 94 mmol/L (101-111); CHOL/HDL RATIO 3.5 (<4.4); CHOLESTEROL 209 mg/dL; CREATININE 0.8 mg/dL (0.4-1.0); GFR - MDRD 70 (>89); GLUCOSE 199 mg/dL (70-100); HDL CHOLESTEROL 60 mg/dL; LDL CHOLESTEROL,CALCULATED 117 mg/dL; POTASSIUM 3.7 mmol/L (3.5-5.0); SODIUM 133 mmol/L (135-145); TOTAL PROTEIN 8.1 g/dL (6.7-8.2); TRIGLYCERIDES 161 mg/dL; VLDL CHOLESTEROL 32 mg/dL
[2022-05-03 10:43] LABS: ESTIMATED AVERAGE GLUCOSE 206 mg/dL (70-100); HEMOGLOBIN A1c% 8.8 % (4.27-6.07)
== END 2022-05-03 10:00 | disposition home or self-care (01) ==
LOC: LAB 09:59
PROVIDERS: ATTEND Internal Medicine
DX: E03.9 Hypothyroidism, unspecified (principal); G25.81 Restless legs syndrome; E11.65 Type 2 diabetes mellitus with hyperglycemia; Z13.220 Encounter for screening for lipoid disorders; I10 Essential (primary) hypertension
CPT/HCPCS: 36415; 80053; 80061; 82043; 82570; 83036; 83721; 84443; 85025

== ENCOUNTER 2022-09-21 22:57 | Observation (INO) | payer MEDICARE, MEDICAID ==
[2022-09-21] MEDS ORDERED: METOCLOPRAMIDE 10 MG/2 ML VIAL IVP STA (23:29)
[2022-09-21] MEDS ORDERED: SODIUM CHLORIDE 0.9% 1,000 ML IV STA (23:29)
[2022-09-21] MEDS ORDERED: FAMOTIDINE 20 MG/2 ML VIAL IVP STA (23:30)
[2022-09-21 23:53] LABS: BASOPHILS % (AUTO) 0.3 %; EOSINOPHILS % (AUTO) 0.1 %; HCT - HEMATOCRIT 39.5 % (37.0-47.0); HGB - HEMOGLOBIN 12.7 g/dL (12.0-16.0); LYMPHOCYTES # (AUTO) 0.6 10^3/uL (1.5-3.5); LYMPHOCYTES % (AUTO) 6.7 %; MEAN CORPUSCULAR HEMOGLOBIN 29.2 pg (27.0-31.0); MEAN CORPUSCULAR HGB CONC 32.2 g/dL (32.0-36.0); MEAN CORPUSCULAR VOLUME 90.8 fL (81.0-99.0); MEAN PLATELET VOLUME 9.9 fL (7.9-10.8); MONOCYTES # (AUTO) 0.3 10^3/uL (0.0-1.0); MONOCYTES % (AUTO) 3.6 %; NEUTROPHILS % (AUTO) 88.9 %; PLT - PLATELET COUNT 319 10^3/uL (130-450); RED BLOOD COUNT 4.35 10^6/uL (4.20-5.40); RED CELL DISTRIBUTION WIDTH 13.6 % (12.0-15.0)
[2022-09-22 00:06] LABS: ALBUMIN/GLOBULIN RATIO 0.9 (1.0-2.2); BILIRUBIN,TOTAL 0.8 mg/dL (0.2-1.0); CREATININE 0.7 mg/dL (0.4-1.0); POTASSIUM 3.4 mmol/L (3.5-5.0); TOTAL PROTEIN 8.3 g/dL (6.7-8.2)
[2022-09-22] MEDS ORDERED: NITROGLYCERIN SL 0.4 MG TABLET SL STA (01:56)
[2022-09-22] MEDS ORDERED: PROCHLORPERAZINE 25 MG SUPP PR STA (02:39)
[2022-09-22 03:04] LABS: VBG HCO3 29.7 mmol/L (23-28); VBG PCO2 50.1 mmHg (41-51); VBG PH 7.391 (7.31-7.41); VBG PO2 35.7 mmHg (25-47); VBG TOTAL CO2 31.3 mmol/L (24-29)
[2022-09-22 03:05] LABS: VBG BASE EXCESS 3.8 mmol/L (-2 - +2); VBG OXYGEN SATURATION 69.5 % (60-80)
--- NOTE | 2022-09-22 03:54 | ED Physician Documentation ---
History of Present Illness - Stated complaint Stated Complaint: N/V - Chief complaint Chief Complaint: Abd Pain - History obtained from History obtained from: Patient - Additonal information Additional information: 77yF with pmh esophagitis, hiatal hernia, multiple ED visits in past for intractable vomiting, p/w n/v for the past 2-3 days and inability to keep her medications down. patient takes omeprazole, hctz, amlodipine, seroquel, synthroid. denies fever, abd pain, diarrhea, back pain, urinary sx. Review of Systems Ten Systems: 10 systems reviewed and negative Constitutional: denies: Fever, Chills GI: reports: Nausea, Vomiting. denies: Abdominal Pain, Diarrhea : denies: Dysuria PD PAST MEDICAL HISTORY - Past Medical History Past Medical History: Yes Cardiovascular: Hypertension Respiratory: Asthma Endocrine/Autoimmune: HyPOthyroidism GI: GERD, Hiatal hernia : None HEENT: None Psych: Anxiety Musculoskeletal: Osteoarthritis - Past Surgical History Past Surgical History: Yes General: Appendectomy, Bowel surgery - Present Medications Home Medications: Ambulatory Orders Medication Instructions Recorded Confirmed Levothyroxine [Synthroid] 150 mcg ORAL DAILY 06/01/17 09/21/22 Quetiapine Fumarate [Quetiapine 25 mg PO BID 06/01/17 09/21/22 Fumarate ER] hydroCHLOROthiazide 25 mg PO DAILY 06/01/17 09/21/22 [Hydrochlorothiazide] Ondansetron Odt [Zofran Odt] 4 mg TL Q6H PRN #12 tablet 07/29/17 09/21/22 Promethazine [Phenergan] 25 mg PO Q6HR PRN #20 tablet 07/29/17 09/21/22 Potassium Chloride 20 meq PO DAILY 10/01/17 09/21/22 Pantoprazole [Protonix inj] 40 mg IVP QDAC vial 10/02/17 09/21/22 Prochlorperazine Supp [Compazine 25 mg [place] TID PRN #15 supp 10/02/17 09/21/22 Supp] - Allergies Allergies/Adverse Reactions: Allergies Allergy/AdvReac Type Severity Reaction Status Date / Time amoxicillin Allergy Unknown Verified 09/21/22 23:09 haloperidol [From Haldol] Allergy Unknown Verified 09/21/22 23:09 haloperidol lactate * Allergy Unknown Verified 09/21/22 23:09 [From Haldol] lisinopril Allergy Unknown Verified 09/21/22 23:09 - Social History Does the pt smoke?: No Smoking Status: Never smoker Does the pt drink ETOH?: No Does the pt have substance abuse?: No - Immunizations Immunizations are current?: Yes - POLST Patient has POLST: No POLST Status: Full Code (pt state she want full code) PD ED PE NORMAL - Vitals Vital signs reviewed: Yes - General General: Alert and oriented X 3, Other (heaving, covered in vomitus) - HEENT HEENT: Atraumatic, PERRL, EOMI, Other (dry mm) - Neck Neck: Supple, no meningeal sign - Cardiac Cardiac: RRR - Respiratory Respiratory: No respiratory distress, Clear bilaterally - Abdomen Abdomen: Non tender, Non distended - Derm Derm: Normal color, Warm and dry - Extremities Extremities: No deformity - Neuro Neuro: Alert and oriented X 3, No motor deficit, No sensory deficit - Psych Psych: Normal mood, Normal affect Results - Vitals Vitals: Vital Signs - 24 hr 09/21/22 09/21/22 09/22/22 23:02 23:42 02:03 Temperature 36.6 C Heart Rate 72 78 90 Respiratory 30 H 20 31 H Rate Blood Pressure 226/96 H 208/101 H 212/106 H O2 Saturation 94 99 94 If not protocol 2 : Oxygen Flow, liters/minute 09/22/22 09/22/22 09/22/22 02:16 02:26 02:34 Temperature 36.2 C L 36.2 C L Heart Rate 95 95 85 Respiratory 31 H 26 H 20 Rate Blood Pressure 206/111 H 187/81 H 192/103 H O2 Saturation 94 95 95 If not protocol : Oxygen Flow, liters/minute 09/22/22 03:13 Temperature 37.0 C Heart Rate 93 Respiratory 30 H Rate Blood Pressure 199/93 H O2 Saturation 96 If not protocol 2 : Oxygen Flow, liters/minute Oxygen O2 Source Nasal cannula Oxygen Flow Rate 2 - Labs Labs: Laboratory Tests 09/21/22 09/21/22 09/21/22 23:48 23:48 23:48 WBC 9.0 RBC 4.35 Hgb 12.7 Hct 39.5 MCV 90.8 MCH 29.2 MCHC 32.2 RDW 13.6 Plt Count 319 MPV 9.9 Neut # (Auto) 8.0 H Lymph # (Auto) 0.6 L [place] # (Auto) 0.3 Eos # (Auto) 0.0 Baso # (Auto) 0.0 Absolute Nucleated RBC 0.00 Nucleated RBC % 0.0 VBG pH VBG pCO2 VBG pO2 VBG HCO3 VBG Total CO2 VBG O2 Saturation VBG Base Excess Sodium 130 L Potassium 3.4 L Chloride 89 L Carbon Dioxide 29 Anion Gap 12.0 BUN 15 Creatinine 0.7 Estimated GFR (MDRD) 81 L Glucose 279 H Calcium 9.0 Total Bilirubin 0.8 AST 18 ALT 21 Alkaline Phosphatase 74 Total Protein 8.3 H Albumin 4.0 Globulin 4.3 H Albumin/Globulin Ratio 0.9 L Lipase 28 Serum Ketones SMALL H 09/22/22 02:55 WBC RBC Hgb Hct MCV MCH MCHC RDW Plt Count MPV Neut # (Auto) Lymph # (Auto) [place] # (Auto) Eos # (Auto) Baso # (Auto) Absolute Nucleated RBC Nucleated RBC % VBG pH 7.391 VBG pCO2 50.1 VBG pO2 35.7 VBG HCO3 29.7 H VBG Total CO2 31.3 H VBG O2 Saturation 69.5 VBG Base Excess 3.8 H Sodium Potassium Chloride Carbon Dioxide Anion Gap BUN Creatinine Estimated GFR (MDRD) Glucose Calcium Total Bilirubin AST ALT Alkaline Phosphatase Total Protein Albumin Globulin Albumin/Globulin Ratio Lipase Serum Ketones PD MEDICAL DECISION MAKING - ED course ED course: 77yF p/w intractable n/v refractory to zofran in the field, reglan, compazine, ivf. attempted sublingual nitro to address hypertension with some improvement from 200s systolic to 180s-190s. d/w Dr. Figueroa for admission. Departure - Departure Disposition: 66 [facility] DC/Xfer Clinical Impression: Nausea and vomiting, Hypertension Condition: Stable
[2022-09-22] MEDS ORDERED: hydrALAZINE INJ 20 MG/ML VIAL IVP PRN (04:06)
[2022-09-22] MEDS ORDERED: SODIUM CHLORIDE FLUSH 0.9% 10 ML SYRINGE IVP PRN (04:08)
[2022-09-22] MEDS ORDERED: PROCHLORPERAZINE 10 MG/2 ML VIAL IVP PRN (04:08)
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
[2022-09-22 05:04] LABS: MUDS CUTOFF CONCENTRATIONS CUTOFF CONC BELOW:
[2022-09-22 05:13] LABS: AMPHETAMINE SCREEN,URINE NEGATIVE (NEGATIVE); BARBITURATE SCREEN,UR NEGATIVE (NEGATIVE); BENZODIAZEPINES SCREEN, URINE NEGATIVE (NEGATIVE); COCAINE SCREEN URINE NEGATIVE (NEGATIVE); METHADONE SCREEN, URINE NEGATIVE (NEGATIVE); METHAMPHETAMINES SCREEN, URINE NEGATIVE (NEGATIVE); OPIATE SCREEN, URINE NEGATIVE (NEGATIVE); OXYCODONE SCREEN, URINE NEGATIVE (NEGATIVE); PROPOXYPHENE SCREEN, URINE NEGATIVE (NEGATIVE); THC CANNABINOID SCREEN, URINE NEGATIVE (NEGATIVE); TRICYCLIC ANTIDEPRESSANT,URINE NEGATIVE (NEGATIVE)
[2022-09-22] MEDS: SUCRALFATE 1 GM/10 ML UDC PO SCH ×3 (06:27→17:33)
[2022-09-22] MEDS: SODIUM CHLORIDE 0.9% 1,000 ML IV SCH (06:28)
[2022-09-22] MEDS: POTASSIUM CHLOR 10 MEQ/100 ML 10 MEQ/100 ML BAG IV SCH ×4 (06:28→10:55)
[2022-09-22] MEDS: SODIUM CHLORIDE FLUSH 0.9% 10 ML SYRINGE IVP SCH ×3 (06:29→23:25)
[2022-09-22] MEDS: LEVOTHYROXINE 125 MCG TABLET PO SCH (06:46)
[2022-09-22] MEDS: INSULIN REGULAR HUMAN 300 UNIT/3 ML VIAL SUBQ SCH ×2 (06:55→12:11)
--- NOTE | 2022-09-22 07:42 | CT Report ---
PROCEDURE: HEAD WO INDICATIONS: intractable n/v with hypertensive emergency TECHNIQUE: Noncontrast 4.5 mm thick angled axial sections acquired from the foramen magnum to the vertex. For r adiation dose reduction, the following was used: automated exposure control, adjustment of mA and/or kV according to patient size. COMPARISON: None. FINDINGS: Image quality: Excellent. CSF spaces: Basal cisterns are patent. No extra-axial fluid collections. Ventricles are normal in size and shape. Brain: No midline shift. No intracranial masses or hemorrhage. Silverman-white matter interface is norm al. Incidental note of extra-axial 7 x 4 mm hyperdense/calcified lesion in the left frontal region w hich is favored to represent a prominent dural calcification or partially calcified small meningioma. No significant mass effect upon the adjacent parenchyma. Age-related senescent changes and sequela o f chronic small vessel ischemic disease. Skull and face: Calvarium and visualized facial bones are intact, without suspicious lesions. Sinuses: Visualized sinuses and mastoids are clear. IMPRESSION: 1. CT head without acute intracranial abnormalities. 2. Age-related senescent changes and sequela of chronic small vessel ischemic disease. 3. Incidental note of a 7 x 4 mm hyperdense/partially calcified lesion in the extra-axial left fronta l region favored to represent prominent dural calcification versus small meningioma. No significant discrepancy with initial interpretation by overnight radiologist. Reviewed by: Alexander Larsen MD on 09/22/2022 7:41 AM PST Approved by: Alexander Larsen MD on 09/22/2022 7:41 AM PST Station ID: [id number]
--- NOTE | 2022-09-22 08:12 | PHARMACY PROGRESS NOTE ---
- Best Possible Medication History Admit Date and Time: 09/22/22 0408 Processed by: Nursing Medication History completed: Yes As the person ultimately responsible for medication therapy, providers are able to order a medication from an existing home medication list in [facility] via the "Reconcile Routine" prior to Confirmation of that medication by claims support specialist. Such practice is discouraged except when the physician, in their clinical judgment, deems that a medical need exists for a medication without regard to previous use.
[2022-09-22] MEDS: hydroCHLOROthiazide 25 MG TABLET PO SCH ×2 (08:16→21:05)
[2022-09-22] MEDS: ACETAMINOPHEN 325 MG TABLET PO PRN ×2 (08:16→21:05)
[2022-09-22] MEDS: QUEtiapine 25 MG TABLET PO SCH ×2 (08:16→21:05)
[2022-09-22] MEDS: HEPARIN 5,000 UNIT/ML VIAL SUBQ SCH ×2 (08:21→21:04)
[2022-09-22] MEDS: ONDANSETRON 4 MG/2 ML VIAL IVP PRN ×2 (08:34→18:48)
[2022-09-22 09:51] LABS: ESTIMATED AVERAGE GLUCOSE 209 mg/dL (70-100); HEMOGLOBIN A1c% 8.9 % (4.27-6.07)
[2022-09-22] MEDS: INSULIN LISPRO 300 UNIT/3 ML PEN SUBQ SCH ×2 (16:58→21:00)
[2022-09-22] MEDS ORDERED: FLUTICASONE NASAL SPRAY NAS PRN (21:34)
[2022-09-23] MEDS: SUCRALFATE 1 GM/10 ML UDC PO SCH ×2 (00:56→06:08)
[2022-09-23] MEDS: SODIUM CHLORIDE 0.9% 1,000 ML IV SCH (02:41)
[2022-09-23 05:55] LABS: BASOPHILS % (AUTO) 0.1 %; EOSINOPHILS % (AUTO) 0.3 %; HCT - HEMATOCRIT 36.4 % (37.0-47.0); HGB - HEMOGLOBIN 11.7 g/dL (12.0-16.0); LYMPHOCYTES # (AUTO) 1.7 10^3/uL (1.5-3.5); LYMPHOCYTES % (AUTO) 19.1 %; MEAN CORPUSCULAR HEMOGLOBIN 29.2 pg (27.0-31.0); MEAN CORPUSCULAR HGB CONC 32.1 g/dL (32.0-36.0); MEAN CORPUSCULAR VOLUME 90.8 fL (81.0-99.0); MEAN PLATELET VOLUME 10.4 fL (7.9-10.8); MONOCYTES # (AUTO) 0.7 10^3/uL (0.0-1.0); MONOCYTES % (AUTO) 8.6 %; NEUTROPHILS # (AUTO) 6.2 10^3/uL (1.5-6.6); NEUTROPHILS % (AUTO) 71.6 %; PLT - PLATELET COUNT 315 10^3/uL (130-450); RED BLOOD COUNT 4.01 10^6/uL (4.20-5.40); RED CELL DISTRIBUTION WIDTH 13.9 % (12.0-15.0); WHITE BLOOD COUNT 8.6 x10^3/uL (4.8-10.8)
[2022-09-23 06:04] LABS: CALCIUM 8.6 mg/dL (8.5-10.3); CREATININE 1.1 mg/dL (0.4-1.0); POTASSIUM 2.6 mmol/L (3.5-5.0)
[2022-09-23] MEDS: LEVOTHYROXINE 125 MCG TABLET PO SCH (06:08)
[2022-09-23 07:57] LABS: ESTIMATED AVERAGE GLUCOSE 206 mg/dL (70-100); HEMOGLOBIN A1c% 8.8 % (4.27-6.07)
[2022-09-23] MEDS ORDERED: POTASSIUM CHLORIDE 20 MEQ/15 ML UDC PO SCH (08:00)
[2022-09-23] MEDS: INSULIN LISPRO 300 UNIT/3 ML PEN SUBQ SCH (08:57)
[2022-09-23] MEDS: HEPARIN 5,000 UNIT/ML VIAL SUBQ SCH (08:57)
[2022-09-23] MEDS: hydroCHLOROthiazide 25 MG TABLET PO SCH (09:04)
[2022-09-23] MEDS: QUEtiapine 25 MG TABLET PO SCH (09:05)
[2022-09-23] MEDS: SODIUM CHLORIDE FLUSH 0.9% 10 ML SYRINGE IVP SCH ×2 (09:05→09:07)
--- NOTE | 2022-09-23 11:12 | Discharge Plan ---
Discharge Plan Problem Reviewed?: Yes Disposition: Home, Self Care Condition: Stable Prescriptions: Amlodipine Besylate [Norvasc] 5 mg PO DAILY #30 tab ONDANSETRON ODT Prepack 2 [ZOFRAN ODT Prepack 2] 4 mg TL Q6H #30 tablet Diet: Diabetic Activity Restrictions: Activity as Tolerated Shower Restrictions: No Driving Restrictions: No Health Concerns: You presented to the hospital because of intractable nausea and vomiting. We think 1 of 2 things happened. Either you take too much ibuprofen or nonsteroidals such as ibuprofen or your blood pressure got out of control to give you a headache with nausea and vomiting. The CAT scan showed that you do not have a stroke. Your blood work was relatively normal. It took us a day to keep on giving you blood pressure medicine in your veins to finally get your blood pressure down to normal. While you were here we noticed that your diabetes is uncontrolled. Your A1c is 8.8%. Goal in a good control diabetic is less than 7%. You are 5 foot 5 inches tall weight 125 kg/275 pounds with a BMI of 46. We strongly recommend that you lose at least 12 kg which is about 26 pounds. Or you start on a second medication by mouth. Or you start insulin. Plan of Treatment: 1. You cannot take any nonsteroidal therapy such as aspirin, ibuprofen, Aleve, Naprosyn, diclofenac. The only znfe-cie-vuhniye medication you can take for pain or fever would be Tylenol or acetaminophen. 2. I have increased your Norvasc from 2.5 mg to 5 mg a day. Please double up on your Norvasc 2.5 mg tablets. 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 3. Please see your primary care provider in follow-up in the next 1 to 2 weeks. They need to check your blood pressure and make sure you are doing okay Care Goals: From the point of view of why you were hospitalized your goal is to keep your blood pressure under control. You also shared with me that you are making plans to move to a different area. One of the things you should consider when you move there is setting yourself up with a new primary care provider soon as possible. Assessment: Patient is alert, oriented, eating food and keeping it down. No further nausea. And blood pressure is controlled at 117/62. No Smoking: If you smoke, Please STOP! Call for help.
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
[2022-09-23 11:42] VITALS: BP 132/62
== END 2022-09-23 12:15 | disposition home or self-care (01) ==
LOC: EDUNIT# → ED 22:57 → MS3 09-22 04:08 → ED 09-22 05:32
PROVIDERS: ADMIT Internal Medicine; ATTEND Internal Medicine
DX: R11.2 Nausea with vomiting, unspecified (principal); I16.0 Hypertensive urgency; I16.1 Hypertensive emergency; K21.00 Gastro-esophageal reflux disease with esophagitis, without bleeding; K44.9 Diaphragmatic hernia without obstruction or gangrene; E87.6 Hypokalemia; E03.9 Hypothyroidism, unspecified; E66.01 Morbid (severe) obesity due to excess calories; E11.65 Type 2 diabetes mellitus with hyperglycemia; E11.42 Type 2 diabetes mellitus with diabetic polyneuropathy; I10 Essential (primary) hypertension; J45.909 Unspecified asthma, uncomplicated; F41.9 Anxiety disorder, unspecified; M19.90 Unspecified osteoarthritis, unspecified site; M54.9 Dorsalgia, unspecified; R10.9 Unspecified abdominal pain; R20.0 Anesthesia of skin; Z20.822 Contact with and (suspected) exposure to COVID-19; Z68.42 Body mass index [BMI] 45.0-49.9, adult; Z79.84 Long term (current) use of oral hypoglycemic drugs; Z79.890 Hormone replacement therapy
CPT/HCPCS: 36415; 70450; 80048; 80053; 80306; 82009; 82803; 83036; 83690; 83880; 83930; 84443; 84484; 85025; 87635; 96365; 96366; 96372; 96375; 96376; 99284; 99285; A9270; G0378; J1815; J2765

== ENCOUNTER 2023-04-04 09:09 | Outpatient (CLI) | payer MEDICARE, MEDICAID ==
[2023-04-04 09:30] LABS: BASOPHILS % (AUTO) 0.4 %; EOSINOPHILS # (AUTO) 0.1 10^3/uL (0.0-0.7); EOSINOPHILS % (AUTO) 1.2 %; HCT - HEMATOCRIT 39.2 % (37.0-47.0); HGB - HEMOGLOBIN 12.4 g/dL (12.0-16.0); LYMPHOCYTES # (AUTO) 1.4 10^3/uL (1.5-3.5); MEAN CORPUSCULAR HEMOGLOBIN 28.6 pg (27.0-31.0); MEAN CORPUSCULAR HGB CONC 31.6 g/dL (32.0-36.0); MEAN CORPUSCULAR VOLUME 90.5 fL (81.0-99.0); MEAN PLATELET VOLUME 10.3 fL (7.9-10.8); MONOCYTES # (AUTO) 0.5 10^3/uL (0.0-1.0); MONOCYTES % (AUTO) 7.9 %; NEUTROPHILS # (AUTO) 4.7 10^3/uL (1.5-6.6); NEUTROPHILS % (AUTO) 69.2 %; PLT - PLATELET COUNT 308 10^3/uL (130-450); RED BLOOD COUNT 4.33 10^6/uL (4.20-5.40); RED CELL DISTRIBUTION WIDTH 13.5 % (12.0-15.0); WHITE BLOOD COUNT 6.7 x10^3/uL (4.8-10.8)
[2023-04-04 10:02] LABS: ALBUMIN/GLOBULIN RATIO 1.1 (1.0-2.2); ALKALINE PHOSPHATASE 60 IU/L (42-121); ALT ALANINE AMINOTRANSFERASE 20 IU/L (10-60); AST ASPARTATE AMINOTRANSFERASE 19 IU/L (10-42); BILIRUBIN,TOTAL 0.7 mg/dL (0.2-1.0); BUN - BLOOD UREA NITROGEN 17 mg/dL (6-20); CALCIUM 9.3 mg/dL (8.5-10.3); CARBON DIOXIDE - CO2 29 mmol/L (21-32); CHLORIDE 100 mmol/L (101-111); CHOL/HDL RATIO 3.5 (<4.4); CHOLESTEROL 196 mg/dL; CREATININE 0.7 mg/dL (0.4-1.0); GFR - MDRD 81 (>89); GLUCOSE 184 mg/dL (70-100); HDL CHOLESTEROL 56 mg/dL; LDL CHOLESTEROL,CALCULATED 112 mg/dL; POTASSIUM 3.4 mmol/L (3.5-5.0); SODIUM 137 mmol/L (135-145); TOTAL PROTEIN 7.8 g/dL (6.7-8.2); TRIGLYCERIDES 140 mg/dL; VLDL CHOLESTEROL 28 mg/dL
[2023-04-04 10:11] LABS: THYROID STIMULATING HORMONE 6.88 uIU/mL (0.34-5.60)
[2023-04-04 10:34] LABS: ESTIMATED AVERAGE GLUCOSE 223 mg/dL (70-100); HEMOGLOBIN A1c% 9.4 % (4.27-6.07)
[2023-04-04 10:45] LABS: FREE T4 (FREE THYROXINE) 1.07 ng/dL (0.58-1.64)
[2023-04-05 04:09] LABS: HCV AB Non Reactive (Non Reactive)
== END 2023-04-04 09:10 | disposition home or self-care (01) ==
LOC: LAB 09:09
PROVIDERS: ATTEND Internal Medicine
DX: I10 Essential (primary) hypertension (principal); E11.9 Type 2 diabetes mellitus without complications; K21.9 Gastro-esophageal reflux disease without esophagitis; E03.9 Hypothyroidism, unspecified; G25.81 Restless legs syndrome; J30.2 Other seasonal allergic rhinitis; Z79.899 Other long term (current) drug therapy
CPT/HCPCS: 36415; 80053; 80061; 83036; 83721; 84439; 84443; 85025; 86803

== ENCOUNTER 2023-11-06 09:37 | Outpatient (CLI) | payer MEDICARE, MEDICAID | END 2023-11-06 23:59 | disposition left against medical advice (07) | LOC: EMS 09:37 | DX: R07.9 Chest pain, unspecified (principal) ==

== ENCOUNTER 2024-03-18 20:46 | Outpatient (CLI) | payer MEDICARE, MEDICAID | END 2024-03-18 23:59 | disposition critical access hospital (66) | LOC: EMS 20:46 | DX: R11.10 Vomiting, unspecified (principal); R19.7 Diarrhea, unspecified; R25.2 Cramp and spasm | CPT/HCPCS: A0425; A0429 ==

== ENCOUNTER 2024-03-18 21:19 | Emergency (ER) | payer MEDICARE, MEDICAID ==
[2024-03-18 21:53] LABS: BILIRUBIN,URINE NEGATIVE (NEGATIVE); GLUCOSE, URINE (UA) >=1000 mg/dL (NEGATIVE); KETONES,URINE (UA) 15 mg/dL (NEGATIVE); LEUKOCYTE ESTERASE, URINE NEGATIVE (NEGATIVE); NITRITE,URINE NEGATIVE (NEGATIVE); OCCULT BLOOD,URINE NEGATIVE (NEGATIVE); PH,URINE 6.5 PH (5.0-7.5); PROTEIN,URINE 30 mg/dL (NEGATIVE); UROBILINOGEN,URINE 0.2 (NORMAL) E.U./dL (NORMAL)
[2024-03-18 21:55] LABS: CLARITY,URINE CLEAR (CLEAR)
[2024-03-18 22:00] LABS: BASOPHILS % (AUTO) 0.4 %; EOSINOPHILS % (AUTO) 0.1 %; HCT - HEMATOCRIT 40.1 % (37.0-47.0); HGB - HEMOGLOBIN 12.4 g/dL (12.0-16.0); LYMPHOCYTES # (AUTO) 0.7 10^3/uL (1.5-3.5); LYMPHOCYTES % (AUTO) 9.2 %; MEAN CORPUSCULAR HEMOGLOBIN 28.7 pg (27.0-31.0); MEAN CORPUSCULAR HGB CONC 30.9 g/dL (32.0-36.0); MEAN CORPUSCULAR VOLUME 92.8 fL (81.0-99.0); MEAN PLATELET VOLUME 10.7 fL (7.9-10.8); MONOCYTES # (AUTO) 0.4 10^3/uL (0.0-1.0); MONOCYTES % (AUTO) 5.2 %; NEUTROPHILS # (AUTO) 6.2 10^3/uL (1.5-6.6); NEUTROPHILS % (AUTO) 84.7 %; PLT - PLATELET COUNT 288 10^3/uL (130-450); RED BLOOD COUNT 4.32 10^6/uL (4.20-5.40); RED CELL DISTRIBUTION WIDTH 13.2 % (12.0-15.0); WHITE BLOOD COUNT 7.3 x10^3/uL (4.8-10.8)
[2024-03-18 22:02] LABS: BACTERIA,URINE Rare /HPF (None Seen); RBC,URINE None Seen /HPF (0-5); SQUAMOUS EPITHELIAL CELL,UR MANY Squamous (<= Few); WBC,URINE 0-3 /HPF (0-5)
[2024-03-18 22:19] LABS: ALBUMIN/GLOBULIN RATIO 1.3 (1.0-2.2); BILIRUBIN,TOTAL 0.5 mg/dL (0.2-1.0); CALCIUM 9.5 mg/dL (8.5-10.3); CREATININE 0.9 mg/dL (0.6-1.3); POTASSIUM 3.4 mmol/L (3.5-4.5); TOTAL PROTEIN 7.2 g/dL (6.4-8.9)
[2024-03-18 23:15] VITALS: BP 173/89; O2SAT 95
--- NOTE | 2024-03-19 15:51 | ED Physician Documentation ---
PD HPI NVD - Stated complaint Stated Complaint: VOMITING - Chief complaint Chief Complaint: Ext Problem - History obtained from History obtained from: Patient - Additonal information Additional information: HPI from patient. Patient c/o nausea and vomiting x 3-4 days but increasing over past 24 hours in frequency and persistence. She had a few similar episodes in 2016 which involved intractable nausea and vomiting to the extent of requiring admission to [facility], and again (once) in 2021. She denies abdominal pain, chest pain, fever, hematemsis, constipation, diarrhea. Unlike previous episodes, by the time of this H+P, she says her symptoms have completely resolved. Review of Systems Constitutional: denies: Fever, Chills, Sweats GI: reports: Nausea, Vomiting. denies: Abdominal Pain, Abdominal Swelling, Constipation, Diarrhea PD PAST MEDICAL HISTORY - Past Medical History Past Medical History: Yes Cardiovascular: Hypertension Respiratory: Asthma Endocrine/Autoimmune: HyPOthyroidism, Other GI: GERD, Hiatal hernia : None HEENT: None Psych: Anxiety Musculoskeletal: Osteoarthritis Other Past Medical History: Borderline diabetes - Past Surgical History Past Surgical History: Yes General: Appendectomy, Bowel surgery - Present Medications Home Medications: Ambulatory Orders Medication Instructions Recorded Confirmed Levothyroxine [Synthroid] 150 mcg ORAL DAILY 06/01/17 03/18/24 Quetiapine Fumarate [Quetiapine 25 mg PO BID 06/01/17 03/18/24 Fumarate ER] hydroCHLOROthiazide 25 mg PO DAILY 06/01/17 03/18/24 [Hydrochlorothiazide] Metformin HCl [Metformin ER 500 mg PO BID 09/22/22 03/18/24 Gastric] Omeprazole Magnesium 20 mg PO DAILY 09/22/22 03/18/24 Amlodipine Besylate [Norvasc] 5 mg PO DAILY #30 tab 09/23/22 03/18/24 ONDANSETRON ODT Prepack 2 [ZOFRAN 4 mg TL Q6H #30 tablet 09/23/22 03/18/24 ODT Prepack 2] Promethazine [Phenergan] 25 mg PO Q6H PRN #10 tab 03/18/24 clindamycin HCL [Clindamycin HCl] 300 mg PO Q6HR 03/18/24 03/18/24 - Allergies Allergies/Adverse Reactions: Allergies Allergy/AdvReac Type Severity Reaction Status Date / Time amoxicillin Allergy Unknown Verified 03/19/24 14:02 haloperidol [From Haldol] Allergy Unknown Verified 03/19/24 14:02 haloperidol lactate * Allergy Unknown Verified 03/19/24 14:02 [From Haldol] lisinopril Allergy Unknown Verified 03/19/24 14:02 - Social History Does the pt smoke?: No Smoking Status: Never smoker Does the pt drink ETOH?: No Does the pt have substance abuse?: No - Immunizations Immunizations are current?: Yes - POLST Patient has POLST: No POLST Status: Full Code (pt state she want full code) PD ED PE NORMAL - Vitals Vital signs reviewed: Yes - General General: Alert and oriented X 3, No acute distress, Well developed/nourished - HEENT HEENT: Moist mucous membranes - Neck Neck: Supple, no meningeal sign - Cardiac Cardiac: RRR - Respiratory Respiratory: No respiratory distress, Clear bilaterally - Abdomen Abdomen: Normal bowel sounds, Soft, Non tender, Non distended - Derm Derm: Normal color, Warm and dry - Neuro Neuro: Alert and oriented X 3 Results - Vitals Vitals: Vital Signs - 24 hr 03/18/24 03/18/24 21:24 23:00 Temperature 36.9 C 36.7 C Heart Rate 74 82 Respiratory 18 16 Rate Blood Pressure 187/85 H 173/89 H O2 Saturation 96 95 Oxygen O2 Source Room air - Labs Labs: Laboratory Tests 03/18/24 03/18/24 03/18/24 21:20 21:57 21:57 WBC 7.3 RBC 4.32 Hgb 12.4 Hct 40.1 MCV 92.8 MCH 28.7 MCHC 30.9 L RDW 13.2 Plt Count 288 MPV 10.7 Neut # (Auto) 6.2 Lymph # (Auto) 0.7 L [place] # (Auto) 0.4 Eos # (Auto) 0.0 Baso # (Auto) 0.0 Absolute Nucleated RBC 0.00 Nucleated RBC % 0.0 Sodium 132 L Potassium 3.4 L Chloride 92 L Carbon Dioxide 31 Anion Gap 9.0 BUN 15 Creatinine 0.9 Estimated GFR (MDRD) 61 L Glucose 335 H Calcium 9.5 Total Bilirubin 0.5 AST 14 ALT 11 Alkaline Phosphatase 64 Total Protein 7.2 Albumin 4.0 Globulin 3.2 Albumin/Globulin Ratio 1.3 Lipase 14 Urine Color YELLOW Urine Clarity CLEAR Urine pH 6.5 Ur Specific [place] 1.015 Urine Protein 30 H Urine Glucose (UA) >=1000 H Urine Ketones 15 H Urine Occult Blood NEGATIVE Urine Nitrite NEGATIVE Urine Bilirubin NEGATIVE Urine Urobilinogen 0.2 (NORMAL) Ur Leukocyte Esterase NEGATIVE Urine RBC None Seen Urine WBC 0-3 Ur Squamous Epith Cells MANY Squamous H Urine Bacteria Rare Ur Microscopic Review INDICATED Urine Culture Comments NOT INDICATED PD Medical Decision Making - ED course Complexity details: reviewed results, re-evaluated patient, considered differential, d/w patient ED course: No concerning nor contributory results on CBC, ER abdominal panel; most notable is hyperglycemia (335). Minimal hypernatremia (132), hypokalemia (3.4). As noted in HPI, by the time of this evaluation, she is asymptomatic. Results reviewed with patient, return precautions discussed. She is nontender on abominal exam. Further emergent testing and/or treatment is not indicated at this time. Provided rx for phenergan (patient says dhruv has not worked for her n/v in the past). Advised to follow up with PMD for symptom reevaluation as well as for her hyperglycemia Departure - Departure Disposition: 01 Home, Self Care Clinical Impression: Nausea and vomiting Qualifiers: Vomiting type: unspecified Qualified Code(s): R11.2 - Nausea with vomiting, unspecified Condition: Good Instructions: ED Nausea Vomiting, ED Hyperglycemia New Susp Diabetes Follow-Up: Elsa Tillman MD [Primary Care Provider] - Prescriptions: Promethazine [Phenergan] 25 mg PO Q6H PRN #10 tab PRN Reason: Nausea / Vomiting Comments: Your sodium level and potassium level were just below the normal ranges; these are not causing your symptoms nor are they low enough to need to be further investigated/treated from an emergency standpoint. As we discussed, the most notable abnormality on your blood test tonight was a high blood sugar (335). As high as this result is, it also is not high enough to need emergent treatment nor would it cause nor contribute to your symptoms (nausea and vomiting). However, you need to follow-up with your primary care provider for reevaluation of not only tonight symptoms, but the high blood sugar as well. I have electronically submitted a prescription for Phenergan (antinausea medication) to the [facility] pharmacy in [place]. Forms: PCP List Discharge Date/Time: 03/18/24 23:22
== END 2024-03-18 23:22 | disposition home or self-care (01) ==
LOC: EDUNIT# → ED 21:19
DX: R11.2 Nausea with vomiting, unspecified (principal); I10 Essential (primary) hypertension; J45.909 Unspecified asthma, uncomplicated; E03.9 Hypothyroidism, unspecified; Z79.899 Other long term (current) drug therapy
CPT/HCPCS: 36415; 80053; 81001; 81003; 83690; 85025; 87086; 99283

== ENCOUNTER 2024-03-19 13:16 | Outpatient (CLI) | payer MEDICARE, MEDICAID | END 2024-03-19 23:59 | disposition critical access hospital (66) | LOC: EMS 13:16 | DX: R11.2 Nausea with vomiting, unspecified (principal); R10.817 Generalized abdominal tenderness | CPT/HCPCS: A0425; A0427 ==

== ENCOUNTER 2024-03-19 13:53 | Inpatient (IN) | payer MEDICARE, MEDICAID ==
--- NOTE | 2024-03-19 14:16 | ED Physician Documentation ---
PD HPI NVD - Stated complaint Stated Complaint: N/V - Chief complaint Chief Complaint: Abd Pain - Additonal information Additional information: 78-year-old female with history of hypertension, asthma, hypothyroidism, hiatal hernia, GERD, cyclic vomiting, osteoarthritis, anxiety presents emergency department for recurrent nausea vomiting abdominal pain. Patient was here in the emergency department last night no imaging was completed she was sent home on Zofran and Phenergan had both medications refilled but cefalexin is having a hard time controlling her abdominal pain and nausea at home ended up calling 911 which brought her to the emergency department. She says that she feels pain across her upper abdominal region nothing makes it worse and nothing makes it better. Patient is very lethargic difficult gathering complete history she later does report that she took a total of 4 pills of Phenergan at home. PD PAST MEDICAL HISTORY - Past Medical History Past Medical History: Yes Cardiovascular: Hypertension Respiratory: Asthma Endocrine/Autoimmune: HyPOthyroidism, Other GI: GERD, Hiatal hernia : None HEENT: None Psych: Anxiety Musculoskeletal: Osteoarthritis - Past Surgical History Past Surgical History: Yes General: Appendectomy, Bowel surgery - Present Medications Home Medications: Ambulatory Orders Medication Instructions Recorded Confirmed Levothyroxine [Synthroid] 150 mcg ORAL DAILY 06/01/17 03/18/24 Quetiapine Fumarate [Quetiapine 25 mg PO BID 06/01/17 03/18/24 Fumarate ER] hydroCHLOROthiazide 25 mg PO DAILY 06/01/17 03/18/24 [Hydrochlorothiazide] Metformin HCl [Metformin ER 500 mg PO BID 09/22/22 03/18/24 Gastric] Omeprazole Magnesium 20 mg PO DAILY 09/22/22 03/18/24 Amlodipine Besylate [Norvasc] 5 mg PO DAILY #30 tab 09/23/22 03/18/24 ONDANSETRON ODT Prepack 2 [ZOFRAN 4 mg TL Q6H #30 tablet 09/23/22 03/18/24 ODT Prepack 2] Promethazine [Phenergan] 25 mg PO Q6H PRN #10 tab 03/18/24 clindamycin HCL [Clindamycin HCl] 300 mg PO Q6HR 03/18/24 03/18/24 - Allergies Allergies/Adverse Reactions: Allergies Allergy/AdvReac Type Severity Reaction Status Date / Time amoxicillin Allergy Unknown Verified 03/19/24 14:02 haloperidol [From Haldol] Allergy Unknown Verified 03/19/24 14:02 haloperidol lactate * Allergy Unknown Verified 03/19/24 14:02 [From Haldol] lisinopril Allergy Unknown Verified 03/19/24 14:02 - Social History Does the pt smoke?: No Smoking Status: Never smoker Does the pt drink ETOH?: No Does the pt have substance abuse?: No - Immunizations Immunizations are current?: Yes - POLST Patient has POLST: No POLST Status: Full Code (pt state she want full code) PD ED PE NORMAL - Vitals Vital signs reviewed: Yes - General General: Alert and oriented X 3, No acute distress, Well developed/nourished - HEENT HEENT: PERRL. No: Moist mucous membranes - Neck Neck: Supple, no meningeal sign - Cardiac Cardiac: RRR, No murmur - Respiratory Respiratory: Other (Diminished breath sounds bilaterally) - Abdomen Abdomen: Normal bowel sounds, Soft. No: Non tender - Neuro Neuro: Other (lethargic) - Psych Psych: Normal mood, Normal affect Results - Vitals Vitals: Vital Signs - 24 hr 03/19/24 03/19/24 03/19/24 14:02 16:05 19:00 Temperature 36.5 C 36.7 C Heart Rate 94 87 78 Respiratory 22 87 H 21 Rate Blood Pressure 230/94 H 207/99 H O2 Saturation 89 L 100 97 03/19/24 03/19/24 20:00 20:30 Temperature Heart Rate 77 83 Respiratory 19 22 Rate Blood Pressure 134/65 H 117/56 L O2 Saturation 100 99 Oxygen O2 Source Room air - EKG (time done) 1937 EKG releavant findings:: EKG personally interpreted by author of this note. Relevant findings are: Rate: Rate (enter#) (77) Rhythm: NSR [place]: Normal Intervals: Normal [place] QRS: LVH Ischemia: Normal ST segments Computer interpretation: Agree with computer - Labs Labs: Laboratory Tests 03/19/24 03/19/24 03/19/24 14:50 14:50 15:33 WBC 10.9 H RBC 4.42 Hgb 12.8 Hct 40.6 MCV 91.9 MCH 29.0 MCHC 31.5 L RDW 13.1 Plt Count 287 MPV 10.6 Neut # (Auto) 10.0 H Lymph # (Auto) 0.5 L [place] # (Auto) 0.3 Eos # (Auto) 0.0 Baso # (Auto) 0.0 Absolute Nucleated RBC 0.00 Nucleated RBC % 0.0 VBG pH VBG pCO2 VBG pO2 VBG HCO3 VBG Total CO2 VBG O2 Saturation VBG Base Excess Sodium 132 L Potassium 3.2 L Chloride 89 L Carbon Dioxide 31 Anion Gap 12.0 BUN 12 Creatinine 0.8 Estimated GFR (MDRD) 69 L Glucose 361 H Calcium 9.6 Magnesium 1.4 L Total Bilirubin 0.5 AST 11 ALT 14 Alkaline Phosphatase 65 Troponin I High Sens B-Natriuretic Peptide Total Protein 7.7 Albumin 4.3 Globulin 3.4 Albumin/Globulin Ratio 1.3 Lipase < 10 L Urine Color YELLOW Urine Clarity CLOUDY Urine pH 6.0 Ur Specific [place] 1.025 Urine Protein 100 H Urine Glucose (UA) 500 H Urine Ketones 40 H Urine Occult Blood SMALL H Urine Nitrite NEGATIVE Urine Bilirubin SMALL H Urine Urobilinogen 0.2 (NORMAL) Ur Leukocyte Esterase NEGATIVE Urine RBC 0-5 Urine WBC 0-3 Ur Squamous Epith Cells MANY Squamous H Urine Bacteria Few Ur Microscopic Review INDICATED Urine Culture Comments NOT INDICATED Urine Opiates Screen NEGATIVE Ur Buprenorphine Scrn NEGATIVE Ur Oxycodone Screen NEGATIVE Urine Methadone Screen NEGATIVE Ur Barbiturates Screen NEGATIVE Ur Tricyclics Screen NEGATIVE Ur Phencyclidine Scrn NEGATIVE Ur Amphetamine Screen NEGATIVE U Methamphetamines Scrn NEGATIVE U Benzodiazepines Scrn NEGATIVE Urine Cocaine Screen NEGATIVE U Cannabinoids Screen NEGATIVE Ur Drug Screen Comment CUTOFF CONC BELOW: 03/19/24 03/19/24 03/19/24 18:22 18:22 18:22 WBC RBC Hgb Hct MCV MCH MCHC RDW Plt Count MPV Neut # (Auto) Lymph # (Auto) [place] # (Auto) Eos # (Auto) Baso # (Auto) Absolute Nucleated RBC Nucleated RBC % VBG pH 7.352 VBG pCO2 51.2 H VBG pO2 35.2 VBG HCO3 27.8 VBG Total CO2 29.3 H VBG O2 Saturation 66.5 VBG Base Excess 1.3 Sodium Potassium Chloride Carbon Dioxide Anion Gap BUN Creatinine Estimated GFR (MDRD) Glucose Calcium Magnesium Total Bilirubin AST ALT Alkaline Phosphatase Troponin I High Sens 21.8 H* B-Natriuretic Peptide 260 H Total Protein Albumin Globulin Albumin/Globulin Ratio Lipase Urine Color Urine Clarity Urine pH Ur Specific [place] Urine Protein Urine Glucose (UA) Urine Ketones Urine Occult Blood Urine Nitrite Urine Bilirubin Urine Urobilinogen Ur Leukocyte Esterase Urine RBC Urine WBC Ur Squamous Epith Cells Urine Bacteria Ur Microscopic Review Urine Culture Comments Urine Opiates Screen Ur Buprenorphine Scrn Ur Oxycodone Screen Urine Methadone Screen Ur Barbiturates Screen Ur Tricyclics Screen Ur Phencyclidine Scrn Ur Amphetamine Screen U Methamphetamines Scrn U Benzodiazepines Scrn Urine Cocaine Screen U Cannabinoids Screen Ur Drug Screen Comment - Rads (name of study) 1 view chest x-ray Relevant Findings:: Final report received, EMP independent interpretation of test, Other (No acute cardiopulmonary process) Abdomen pelvis CT with con Relevant Findings:: Final report received, EMP independent interpretation of test, Other (No acute intra-abdominal processes) PD Medical Decision Making - ED course ED course: 78-year-old female presents back to the emergency department for nausea vomiting. Abdomen pelvis CT with con was complete and there is no acute intra- abdominal processes found. Patient is normally on room air and yesterday she declined IV fluids today she is so lethargic that she is unable to participate in any conversations or decline anything. Further investigation and interviewing was complete and patient does report that she took 4 Phenergan pills today. I believe that this is what is contributing to her lethargy and hypoxia. Patient would greatly benefit from hospitalization and further monitoring of her hypoxia until she is able to be more awake to maintain her own airway. I spoke with Dr. Figueroa, telehospitalist who has kindly agreed to admit the patient for observation overnight. Labs were complete while patient was here she has no leukocytosis no anemia I also completed a VBG and it was found to be overall within normal limits. She has slight hyponatremia 132 she was given 1 L of IV fluids here in the emergency department she was also found to have hypokalemia 3.2 and hypomagnesemia 1.4 she is given a total of 40 mill equivalents p.o. potassium 1 g IV magnesium. Her BNP came back very slightly elevated at 260 I do not believe that this is what is contributing to her hypoxia. Her urinalysis was within normal limits and her urine drug screen was also within normal limits. Departure - Departure Disposition: [facility] DC/Xfer Clinical Impression: Hypoxia Accidental overdose Qualifiers: Encounter type: initial encounter Qualified Code(s): T50.901A - Poisoning by unspecified drugs, medicaments and biological substances, accidental (u nintentional), initial encounter Altered mental status Qualifiers: Altered mental status type: unspecified Qualified Code(s): R41.82 - Altered mental status, unspecified Forms: PCP List
[2024-03-19 14:55] LABS: BASOPHILS % (AUTO) 0.2 %; EOSINOPHILS % (AUTO) 0.1 %; HCT - HEMATOCRIT 40.6 % (37.0-47.0); HGB - HEMOGLOBIN 12.8 g/dL (12.0-16.0); LYMPHOCYTES # (AUTO) 0.5 10^3/uL (1.5-3.5); LYMPHOCYTES % (AUTO) 4.6 %; MEAN CORPUSCULAR HGB CONC 31.5 g/dL (32.0-36.0); MEAN CORPUSCULAR VOLUME 91.9 fL (81.0-99.0); MEAN PLATELET VOLUME 10.6 fL (7.9-10.8); MONOCYTES # (AUTO) 0.3 10^3/uL (0.0-1.0); NEUTROPHILS % (AUTO) 91.6 %; PLT - PLATELET COUNT 287 10^3/uL (130-450); RED BLOOD COUNT 4.42 10^6/uL (4.20-5.40); RED CELL DISTRIBUTION WIDTH 13.1 % (12.0-15.0); WHITE BLOOD COUNT 10.9 x10^3/uL (4.8-10.8)
[2024-03-19 15:17] LABS: ALBUMIN 4.3 g/dL (3.2-5.5); ALBUMIN/GLOBULIN RATIO 1.3 (1.0-2.2); ALKALINE PHOSPHATASE 65 IU/L (42-121); ALT ALANINE AMINOTRANSFERASE 14 IU/L (10-60); AST ASPARTATE AMINOTRANSFERASE 11 IU/L (10-42); BILIRUBIN,TOTAL 0.5 mg/dL (0.2-1.0); BUN - BLOOD UREA NITROGEN 12 mg/dL (6-20); CALCIUM 9.6 mg/dL (8.5-10.3); CARBON DIOXIDE - CO2 31 mmol/L (21-32); CHLORIDE 89 mmol/L (101-111); CREATININE 0.8 mg/dL (0.6-1.3); GFR - MDRD 69 (>89); GLUCOSE 361 mg/dL (74-104); MAGNESIUM 1.4 mg/dL (1.7-2.3); POTASSIUM 3.2 mmol/L (3.5-4.5); SODIUM 132 mmol/L (135-145); TOTAL PROTEIN 7.7 g/dL (6.4-8.9)
[2024-03-19] MEDS ORDERED: iohexoL-300 100 ML VIAL ONE (15:22)
[2024-03-19 15:25] LABS: LIPASE < 10 U/L (11-82)
[2024-03-19] MEDS: ONDANSETRON 4 MG/2 ML VIAL IVP STA (15:33)
[2024-03-19] MEDS: SODIUM CHLORIDE 0.9% 1,000 ML IV ONE (15:36)
[2024-03-19 15:44] LABS: BILIRUBIN,URINE SMALL (NEGATIVE); GLUCOSE, URINE (UA) 500 mg/dL (NEGATIVE); KETONES,URINE (UA) 40 mg/dL (NEGATIVE); LEUKOCYTE ESTERASE, URINE NEGATIVE (NEGATIVE); NITRITE,URINE NEGATIVE (NEGATIVE); OCCULT BLOOD,URINE SMALL (NEGATIVE); PROTEIN,URINE 100 mg/dL (NEGATIVE); UROBILINOGEN,URINE 0.2 (NORMAL) E.U./dL (NORMAL)
[2024-03-19 15:47] LABS: CLARITY,URINE CLOUDY (CLEAR)
[2024-03-19 15:48] LABS: BACTERIA,URINE Few /HPF (None Seen); RBC,URINE 0-5 /HPF (0-5); SQUAMOUS EPITHELIAL CELL,UR MANY Squamous (<= Few)
[2024-03-19 15:51] LABS: WBC,URINE 0-3 /HPF (0-5)
[2024-03-19 15:53] LABS: AMPHETAMINE SCREEN,URINE NEGATIVE (NEGATIVE); BARBITURATE SCREEN,UR NEGATIVE (NEGATIVE); BENZODIAZEPINES SCREEN, URINE NEGATIVE (NEGATIVE); BUPRENORPHINE SCREEN, URINE NEGATIVE (NEGATIVE); COCAINE SCREEN URINE NEGATIVE (NEGATIVE); METHADONE SCREEN, URINE NEGATIVE (NEGATIVE); METHAMPHETAMINES SCREEN, URINE NEGATIVE (NEGATIVE); OPIATE SCREEN, URINE NEGATIVE (NEGATIVE); OXYCODONE SCREEN, URINE NEGATIVE (NEGATIVE); THC CANNABINOID SCREEN, URINE NEGATIVE (NEGATIVE); TRICYCLIC ANTIDEPRESSANT,URINE NEGATIVE (NEGATIVE)
[2024-03-19] MEDS: iohexoL-300 100 ML VIAL IVP ONE (16:01)
[2024-03-19] MEDS ORDERED: MAGNESIUM SULFATE 1 GM/2 ML VIAL IVP STA (16:22)
--- NOTE | 2024-03-19 16:35 | CT Report ---
PROCEDURE: Abdomen/Pelvis W INDICATIONS: RUQ pain CONTRAST: 100ML [id number] TECHNIQUE: After the administration of intravenous contrast, a CT scan of the abdomen and pelvis was performed. Images were recorded and evaluated at appropriate window settings. Reformats: coronal and sagittal. F or radiation dose reduction, the following was used: automated exposure control, adjustment of mA and /or kV according to patient size. COMPARISON: CT abdomen pelvis 06/01/2017 FINDINGS: Image quality: Diagnostic. Lower chest: Unremarkable. Liver: No solid mass. Hepatic steatosis. Simple hepatic cyst. Gallbladder and biliary tree: Unremarkable. Spleen: No splenomegaly. Pancreas: No pancreatic ductal dilation. Adrenals: No adrenal nodule. Kidneys and ureters: No hydronephrosis. No renal cystic lesion which requires follow up. No solid mas s. Stomach, bowel and peritoneum: No bowel distension. No pathologic free fluid. Prominent hiatal hernia . Diverticulosis. Lymph nodes: No central or retroperitoneal adenopathy. Vessels: No infrarenal aortic aneurysm. Patent portal vein. PELVIS Reproductive organs: Unremarkable. Bladder: No abnormal wall thickening, accounting for underdistention. Pelvic lymph nodes: No pelvic adenopathy by size criteria. Bones: No aggressive osseous abnormality. Other: No significant ventral or inguinal hernia. IMPRESSION: No acute intra-abdominal or pelvic process. Reviewed by: Chely Beckford MD on 03/19/2024 4:08 PM PDT Approved by: Chely Beckford MD on 03/19/2024 4:08 PM PDT Station ID: [id number]
[2024-03-19] MEDS ORDERED: MAGNESIUM SULFATE 1 GM/2 ML VIAL ONE (16:57)
[2024-03-19] MEDS: MAGNESIUM SULFATE 1 GM in SODIUM CHLORIDE 0.9% 50 ML IV STA (17:10)
[2024-03-19] MEDS: POTASSIUM CHLORIDE 20 MEQ TABLET PO STA (17:10)
[2024-03-19 20:35] LABS: VBG BASE EXCESS 1.3 mmol/L (-2 - +2); VBG HCO3 27.8 mmol/L (23-28); VBG PCO2 51.2 mmHg (41-51); VBG PH 7.352 (7.31-7.41); VBG PO2 35.2 mmHg (25-47); VBG TOTAL CO2 29.3 mmol/L (24-29)
[2024-03-19 20:36] LABS: VBG OXYGEN SATURATION 66.5 % (60-80)
[2024-03-19] MEDS ORDERED: SODIUM CHLORIDE FLUSH 0.9% 10 ML SYRINGE IVP PRN (20:51)
[2024-03-19] MEDS ORDERED: FAMOTIDINE 20 MG/2 ML VIAL IVP SCH (21:00)
[2024-03-19] MEDS ORDERED: MAGNESIUM SULFATE 2 GRAM 2 GM/50 ML BAG IV ONE (21:04)
--- NOTE | 2024-03-19 21:14 | HISTORY & PHYSICAL EXAMINATION ---
Chief Complaint - Chief Complaint Chief Complaint: epigastric abdominal pain and n/v History of Present Illness - Admitted From Admitted From:: ED - History Obtained From Records Reviewed: EMR and discuss with ED staff History obtained from: ED staff and patient Exam Limitations: Tele medicine and patient's AMS - History of Present Illness HPI Comment/Other: 78F c DM2, HTN, HLD who presents to the reporting nausea and vomiting and epigastric abdominal pain. During the evaluation in the ED, patient was noted to be somnolent but arousable. She was in the ED yesterday with same complaints. She was discharged with Zofran and Phenergan. She reports taking her medications as prescribed and did not over take. She reports only other new medication recently was abx. Patient denies NSAID abuse. She states no trauma. No diarrhea. No fever. No URI sxs. No chest pain. No palpitation. No SOB. Here in the ED, patient was noted to be somnolent. She was desaturating on room air. Normal LFTs and Lipase. CT abdomen/pelvis negative. History - Past Medical History Cardiovascular: reports: Hypertension Respiratory: reports: Asthma Endocrine/Autoimmune: reports: Type 2 diabetes, HyPOthyroidism, Other GI: reports: GERD, Hiatal hernia : reports: None HEENT: reports: None Psych: reports: Anxiety Musculoskeletal: reports: Osteoarthritis MRSA Hx?: No - Past Surgical History General: reports: Appendectomy, Bowel surgery - Family & Social History Social History Notes: pt report she had a home at [facility], not homeless - Substance History Use: Uses substance without health or social issues: NONE - POLST Patient has POLST: No POLST Status: Full Code (pt state she want full code) Meds/Allgy - Home Medications Home Medications: Ambulatory Orders Medication Instructions Recorded Confirmed Levothyroxine [Synthroid] 150 mcg ORAL DAILY 06/01/17 03/18/24 Quetiapine Fumarate [Quetiapine 25 mg PO BID 06/01/17 03/18/24 Fumarate ER] hydroCHLOROthiazide 25 mg PO DAILY 06/01/17 03/18/24 [Hydrochlorothiazide] Metformin HCl [Metformin ER 500 mg PO BID 09/22/22 03/18/24 Gastric] Omeprazole Magnesium 20 mg PO DAILY 09/22/22 03/18/24 Amlodipine Besylate [Norvasc] 5 mg PO DAILY #30 tab 09/23/22 03/18/24 ONDANSETRON ODT Prepack 2 [ZOFRAN 4 mg TL Q6H #30 tablet 09/23/22 03/18/24 ODT Prepack 2] Promethazine [Phenergan] 25 mg PO Q6H PRN #10 tab 03/18/24 clindamycin HCL [Clindamycin HCl] 300 mg PO Q6HR 03/18/24 03/18/24 - Allergies Allergies/Adverse Reactions: Allergies Allergy/AdvReac Type Severity Reaction Status Date / Time amoxicillin Allergy Unknown Verified 03/19/24 14:02 haloperidol [From Haldol] Allergy Unknown Verified 03/19/24 14:02 haloperidol lactate * Allergy Unknown Verified 03/19/24 14:02 [From Haldol] lisinopril Allergy Unknown Verified 03/19/24 14:02 Review of Systems - Other Findings Other Findings: negative unless mentioned differently Exam - Vital Signs Reviewed Vital Signs: Yes Vital Signs: Vital Signs x48h Temp Pulse Resp BP Pulse Ox 03/19/24 20:30 83 22 117/56 L 99 03/19/24 20:00 77 19 134/65 H 100 03/19/24 19:00 78 21 97 03/19/24 16:05 36.7 C 87 87 H 207/99 H 100 03/19/24 14:02 36.5 C 94 22 230/94 H 89 L - Physical Exam General Appearance: positive: Other (somnolent but arousable.) Eyes Bilateral: positive: Normal inspection ENT: positive: ENT inspection nml Neck: positive: Nml inspection Abdomen: positive: Non-tender, No distention. negative: Guarding, Rebound Extremities: positive: Nml appearance Neurologic/Psychiatric: positive: Oriented x3 Conclusion/Plan - Problem List (1) Toxic metabolic encephalopathy Conclusion/Plan: 2/2 phenergan. hold phenergan. avoid medications that trigger alter mentation/ delirium. keep npo for now until mentation better. if not better mentation in am, consider head MRI r/o stroke. continue neuro checks (2) Nausea and vomiting Conclusion/Plan: unclear etiology. zofran and compazine. pain control. npo for now. iv fluid support. med related - r/o metformin adverse effect Qualifiers: Vomiting type: unspecified Qualified Code(s): R11.2 - Nausea with vomiting, unspecified (3) Hypoxia Conclusion/Plan: check CXR. breathing treatment. O2 support. (4) Hypertension Conclusion/Plan: managed. continue home blood pressure medications. monitor blood pressure with repeat vital checks (5) Hypokalemia Conclusion/Plan: likely low from n/v. replete and recheck. tele monitoring. (6) Hypothyroidism Conclusion/Plan: restart and check tsh and ft4 Qualifiers: Hypothyroidism type: acquired Qualified Code(s): E03.9 - Hypothyroidism, unspecified (7) DM2 (diabetes mellitus, type 2) Conclusion/Plan: hold metformin. possible cause of patient's n/v. manage with ssi and accucheck. followup am [id number] for insight into management - Lab Results Lab results reviewed: Yes Fish Bones: 03/19/24 14:50 03/19/24 14:50 - Diagnostic Imaging Results Diagnostic Imaging Results: positive: Final report reviewed Core Measures - Anticipated LOS I expect patient to be DC'd or transferred within 96 hours.: Yes - Issues Hospital Issues and Management Plan: The patient consented to receive this telemedicine service, which I performed via live two-way audiovisual equipment. The patient is at ([facility]) and I am physically in [facility]. A nurse assisted me in the visit. - DVT/VTE - Prophylaxis VTE/DVT Device ordered at admit?: Yes Telemedicine Consult Details - Provider Location & Consult Time Telemedicine consultation conducted via videoconferencing?: Yes List names and roles of persons who participated in consult:: ED staff, Patient, and RN Telemedicine provider location:: [facility] Time Telemedicine consult began:: 20:36 Time Telemedicine consult completed:: 21:41
[2024-03-19] MEDS: SODIUM CHLORIDE 0.9% 1,000 ML IV SCH (22:18)
[2024-03-19] MEDS: POTASSIUM CHLOR 10 MEQ/100 ML 10 MEQ/100 ML BAG IV SCH (22:18)
[2024-03-20] MEDS: INSULIN REGULAR HUMAN 300 UNIT/3 ML VIAL SUBQ SCH (00:16)
[2024-03-20] MEDS: SODIUM CHLORIDE FLUSH 0.9% 10 ML SYRINGE IVP SCH (01:49)
[2024-03-20] MEDS: ONDANSETRON 4 MG/2 ML VIAL IVP PRN (02:12)
[2024-03-20] MEDS: ZINC OXIDE 12% OINT 57 GM TUBE TOP PRN (05:38)
[2024-03-20] MEDS: ACETAMINOPHEN 325 MG TABLET PO PRN (06:15)
[2024-03-20 06:48] LABS: VBG PCO2 44.1 mmHg (41-51); VBG PH 7.388 (7.31-7.41); VBG PO2 28.3 mmHg (25-47); VBG TOTAL CO2 27.3 mmol/L (24-29)
[2024-03-20 06:49] LABS: BASOPHILS % (AUTO) 0.1 %; EOSINOPHILS # (AUTO) 0.1 10^3/uL (0.0-0.7); EOSINOPHILS % (AUTO) 0.4 %; HCT - HEMATOCRIT 41.2 % (37.0-47.0); HGB - HEMOGLOBIN 13.1 g/dL (12.0-16.0); LYMPHOCYTES # (AUTO) 0.9 10^3/uL (1.5-3.5); LYMPHOCYTES % (AUTO) 8.1 %; MEAN CORPUSCULAR HEMOGLOBIN 29.8 pg (27.0-31.0); MEAN CORPUSCULAR HGB CONC 31.8 g/dL (32.0-36.0); MEAN CORPUSCULAR VOLUME 93.8 fL (81.0-99.0); MEAN PLATELET VOLUME 10.7 fL (7.9-10.8); MONOCYTES # (AUTO) 0.7 10^3/uL (0.0-1.0); MONOCYTES % (AUTO) 6.1 %; NEUTROPHILS # (AUTO) 9.6 10^3/uL (1.5-6.6); NEUTROPHILS % (AUTO) 84.9 %; PLT - PLATELET COUNT 286 10^3/uL (130-450); RED BLOOD COUNT 4.39 10^6/uL (4.20-5.40); RED CELL DISTRIBUTION WIDTH 13.5 % (12.0-15.0); VBG BASE EXCESS 0.7 mmol/L (-2 - +2); VBG OXYGEN SATURATION 57.8 % (60-80); WHITE BLOOD COUNT 11.3 x10^3/uL (4.8-10.8)
[2024-03-20] MEDS ORDERED: PANTOPRAZOLE 40 MG TABLET PO SCH (07:00)
[2024-03-20 07:09] LABS: ALBUMIN 4.3 g/dL (3.2-5.5); ALBUMIN/GLOBULIN RATIO 1.3 (1.0-2.2); ALKALINE PHOSPHATASE 72 IU/L (42-121); ALT ALANINE AMINOTRANSFERASE 14 IU/L (10-60); AST ASPARTATE AMINOTRANSFERASE 12 IU/L (10-42); BILIRUBIN,TOTAL 0.6 mg/dL (0.2-1.0); BUN - BLOOD UREA NITROGEN 20 mg/dL (6-20); CALCIUM 9.4 mg/dL (8.5-10.3); CARBON DIOXIDE - CO2 33 mmol/L (21-32); CHLORIDE 93 mmol/L (101-111); CREATININE 1.1 mg/dL (0.6-1.3); GFR - MDRD 48 (>89); GLUCOSE 265 mg/dL (74-104); MAGNESIUM 1.9 mg/dL (1.7-2.3); PHOSPHORUS 3.2 mg/dL (2.5-5.0); POTASSIUM 3.8 mmol/L (3.5-4.5); SODIUM 134 mmol/L (135-145); TOTAL PROTEIN 7.6 g/dL (6.4-8.9)
[2024-03-20 07:11] LABS: LIPASE < 10 U/L (11-82)
[2024-03-20 07:24] LABS: CHOL/HDL RATIO 3.6 (<4.4); CHOLESTEROL 235 mg/dL; HDL CHOLESTEROL 65 mg/dL; LDL CHOLESTEROL,CALCULATED 141 mg/dL; LDL/HDL RATIO 2.2 (<4.4); TRIGLYCERIDES 145 mg/dL (48-352); VLDL CHOLESTEROL 29 mg/dL
[2024-03-20 07:33] LABS: PROCALCITONIN < 0.05 ng/mL (<0.5)
[2024-03-20 07:40] LABS: THYROID STIMULATING HORMONE 7.14 uIU/mL (0.34-5.60)
[2024-03-20] MEDS: LEVOTHYROXINE 100 MCG TABLET PO SCH (08:17)
[2024-03-20] MEDS: PANTOPRAZOLE 40 MG VIAL IV SCH (08:17)
[2024-03-20] MEDS: amLODIPine 5 MG TABLET PO SCH ×2 (08:18→18:27)
[2024-03-20] MEDS: polyethylene glycoL 3350 17 GM PACKET PO SCH (08:18)
[2024-03-20] MEDS: QUEtiapine 25 MG TABLET PO SCH (10:04)
[2024-03-20 10:22] LABS: ESTIMATED AVERAGE GLUCOSE 298 mg/dL (70-100)
--- NOTE | 2024-03-20 10:27 | XRAY Report ---
PROCEDURE: Chest 1V INDICATIONS: hypoxia TECHNIQUE: One view of the chest was acquired. COMPARISON: Chest x-ray 03/19/2024 FINDINGS: Surgical changes and devices: None. Lungs and pleura: Increased pulmonary vascularity similar versus slightly progressive compared to pr ior exam. Mediastinum: Mediastinal contours appear normal. Heart size is enlarged. Bones and chest wall: No suspicious bony lesions. Overlying soft tissues appear unremarkable. IMPRESSION: Increased pulmonary vascularity suggestive of edema slightly progressive compared to prior exam. Reviewed by: Chely Beckford MD on 03/20/2024 10:25 AM PDT Approved by: Chely Beckford MD on 03/20/2024 10:25 AM PDT Station ID: [id number]
--- NOTE | 2024-03-20 12:18 | PHARMACY PROGRESS NOTE ---
- Best Possible Medication History Admit Date and Time: 03/19/242050 Processed by: Pharmacy Medications reviewed in ED?: No Medication History completed: Yes Secondary Source(s): Pharmacy records, Insurance records As the person ultimately responsible for medication therapy, providers are able to order a medication from an existing home medication list in [facility] via the "Reconcile Routine" prior to Confirmation of that medication by web support engineer. Such practice is discouraged except when the physician, in their clinical judgment, deems that a medical need exists for a medication without regard to previous use.
--- NOTE | 2024-03-20 14:48 | XRAY Report ---
PROCEDURE: Chest 1V INDICATIONS: COUGH TECHNIQUE: One view of the chest was acquired. COMPARISON: 03/19/2024 and 07/04/2014. FINDINGS: Surgical changes and devices: None. Lungs and pleura: No pleural effusions or pneumothorax. There is mild pulmonary vascular congestion. No definite focal infiltrate. Mediastinum: Mediastinal contours appear normal. Heart size is enlarged. Bones and chest wall: No suspicious bony lesions. Overlying soft tissues appear unremarkable. IMPRESSION: Cardiomegaly and mild congestion. No definite focal infiltrate. No pleural effusion or pneumothorax. Reviewed by: Lucius Ponce MD on 03/20/2024 2:46 PM PDT Approved by: Lucius Ponce MD on 03/20/2024 2:46 PM PDT Station ID: [id number]
[2024-03-20] MEDS: guaiFENesin 600 MG TABLET PO PRN (18:27)
[2024-03-20] MEDS: PROCHLORPERAZINE 10 MG/2 ML VIAL IVP PRN (20:27)
--- NOTE | 2024-03-20 23:27 | PROVIDER PROGRESS NOTE ---
Assessment/Plan - Problem List (1) Toxic metabolic encephalopathy Assessment/Plan: (1) Toxic metabolic encephalopathy Conclusion/Plan: Patient to remain n.p.o. Phenergan has been discontinued.Continue to follow mental status.Mental status appears to be improving. (2) Nausea and vomiting Conclusion/Plan: Etiology of nausea and vomiting is not clear. Differential diagnosis would include medication effect. Metformin can cause nausea and vomiting. Also cannot exclude diabetic gastroparesis. (3) Hypoxia Conclusion/Plan: Hypoxia has improved and most likely related to altered mental status. Continue to monitor. (4) Hypertension Conclusion/Plan: Initiate treatment with amlodipine - Current Meds Current Meds: Current Medications Generic Name Dose Route Start Last Admin Trade Name Freq PRN Reason Stop Dose Admin Acetaminophen 650 mg 03/19/24 20:51 03/20/24 20:27 Acetaminophen 325 Mg Tablet PO 650 mg Q4HR PRN Administration Pain 1 to 4, or Fever Amlodipine Besylate 2.5 mg 03/20/24 16:06 03/20/24 18:27 Amlodipine 5 Mg Tablet PO 2.5 mg DAILY NETTE Administration Guaifenesin 600 mg 03/20/24 17:26 03/20/24 18:27 Guaifenesin 600 Mg Tablet PO 600 mg BID PRN Administration Congestion Sodium Chloride 1,000 mls @ 50 mls/hr 03/19/24 22:00 03/20/24 15:37 Normal Saline 0.9% IV 50 mls/hr .Q20H NETTE Administration Insulin Human Regular 5 unit 03/20/24 00:00 03/20/24 18:30 Insulin Regular Human 300 Unit/3 Ml Vial SUBQ 5 unit Q6HR NETTE Administration Protocol Multi-Ingredient Ointment 1 applic 03/20/24 00:42 03/20/24 05:38 Zinc Oxide 12% Oint 57 Gm Tube TOP 1 applic PRN PRN Administration Skin Care Ondansetron HCl 4 mg 03/19/24 20:51 03/20/24 18:28 Ondansetron 4 Mg/2 Ml Vial IVP 4 mg Q6HR PRN Administration Nausea / Vomiting Polyethylene Glycol 17 gm 03/20/24 09:00 03/20/24 08:18 Polyethylene Glycol 3350 17 Gm Packet PO 17 gm DAILY NETTE Administration Prochlorperazine Edisylate 10 mg 03/19/24 20:51 03/20/24 20:27 Prochlorperazine 10 Mg/2 Ml Vial IVP 10 mg Q6HR PRN Administration Nausea / Vomiting Quetiapine Fumarate 25 mg 03/20/24 09:00 03/20/24 20:27 Quetiapine 25 Mg Tablet PO 25 mg BID NETTE Administration Sodium Chloride 10 ml 03/20/24 01:00 03/20/24 15:33 Sodium Chloride Flush 0.9% 10 Ml Syringe IVP Not Given 0100,0900,1700 NETTE - Lab Result Fish Bone Diagrams: 03/20/24 06:35 03/21/24 05:06 - Additional Planning My Orders: My Active Orders 03/20/24 Evaluate and Treat OT [OT] Routine Evaluate and Treat PT [PT] Routine 03/20/24 16:06 amLODIPine [Norvasc] 2.5 mg PO DAILY 03/20/24 17:26 guaiFENesin [Mucinex] 600 mg PO BID PRN Subjective - Subjective Patient Reports: Other (Alert. Continues to have episodes of vomiting. No other complaints at this time.) Objective Vital Signs: Vital Signs - 24 hr 03/20/24 03/20/24 03/20/24 00:42 06:00 07:38 Temperature 37.3 C 36.6 C 37.0 C Heart Rate [ 79 77 83 Brachial] Heart Rate [ Sitting] Heart Rate [ Standing] Heart Rate [ Supine] Respiratory 18 18 20 Rate Blood Pressure 163/79 H 138/75 H 196/106 H [Left Brachial artery] Blood Pressure 180/97 H [Left Radial artery] Blood Pressure [Sitting] Blood Pressure [Standing] Blood Pressure [Supine] O2 Saturation 93 97 96 O2 Saturation [ With Activity] If not protocol 2 : Oxygen Flow, liters/minute 03/20/24 03/20/24 03/20/24 08:49 09:40 11:41 Temperature 36.4 C L Heart Rate [ 68 Brachial] Heart Rate [ Sitting] Heart Rate [ Standing] Heart Rate [ Supine] Respiratory 18 Rate Blood Pressure [Left Brachial artery] Blood Pressure 108/58 L 133/84 H [Left Radial artery] Blood Pressure [Sitting] Blood Pressure [Standing] Blood Pressure [Supine] O2 Saturation 96 O2 Saturation [ With Activity] If not protocol 2 2 : Oxygen Flow, liters/minute 03/20/24 03/20/24 03/20/24 14:18 14:20 15:24 Temperature 36.5 C Heart Rate [ 73 Brachial] Heart Rate [ 79 79 Sitting] Heart Rate [ 82 82 Standing] Heart Rate [ 76 76 Supine] Respiratory 20 Rate Blood Pressure 184/94 H [Left Brachial artery] Blood Pressure 198/87 H [Left Radial artery] Blood Pressure 156/83 H 156/83 H [Sitting] Blood Pressure 156/85 H 156/85 H [Standing] Blood Pressure 153/86 H 153/86 H [Supine] O2 Saturation 97 O2 Saturation [ 94 With Activity] If not protocol : Oxygen Flow, liters/minute 03/20/24 21:00 Temperature 36.7 C Heart Rate [ 82 Brachial] Heart Rate [ Sitting] Heart Rate [ Standing] Heart Rate [ Supine] Respiratory 16 Rate Blood Pressure [Left Brachial artery] Blood Pressure 178/98 H [Left Radial artery] Blood Pressure [Sitting] Blood Pressure [Standing] Blood Pressure [Supine] O2 Saturation 92 O2 Saturation [ With Activity] If not protocol : Oxygen Flow, liters/minute Oxygen O2 Source [With Activity] Room air O2 Source Room air I&O (Last 24 Hrs): Intake and Output Totals x24h 03/18/24 03/19/24 03/20/24 23:59 23:59 23:59 Intake Total 1152 1165.833 Output Total 1 400 Balance 1151 765.833 General: Alert HEENT: EOMI Neck: No JVD Neuro: Non Focal Cardiovascular: Other (Positive S1-S2 no extra heart sounds.) Respiratory: Other (Good air exchange in all lung alex no wheezing no crackles.) Abdomen: Other (Soft nontender positive bowel sounds) Extremities: No cyanosis, No edema Skin: No rashes - Results Results: Laboratory Results WBC 11.3 x10^3/uL (4.8-10.8) H 03/20/24 06:35 RBC 4.39 10^6/uL (4.20-5.40) 03/20/24 06:35 Hgb 13.1 g/dL (12.0-16.0) 03/20/24 06:35 Hct 41.2 % (37.0-47.0) 03/20/24 06:35 MCV 93.8 fL (81.0-99.0) 03/20/24 06:35 MCH 29.8 pg (27.0-31.0) 03/20/24 06:35 MCHC 31.8 g/dL (32.0-36.0) L 03/20/24 06:35 RDW 13.5 % (12.0-15.0) 03/20/24 06:35 Plt Count 286 10^3/uL (130-450) 03/20/24 06:35 MPV 10.7 fL (7.9-10.8) 03/20/24 06:35 Neut # (Auto) 9.6 10^3/uL (1.5-6.6) H 03/20/24 06:35 Lymph # (Auto) 0.9 10^3/uL (1.5-3.5) L 03/20/24 06:35 [place] # (Auto) 0.7 10^3/uL (0.0-1.0) 03/20/24 06:35 Eos # (Auto) 0.1 10^3/uL (0.0-0.7) 03/20/24 06:35 Baso # (Auto) 0.0 10^3/uL (0.0-0.1) 03/20/24 06:35 Absolute Nucleated RBC 0.00 x10^3/uL 03/20/24 06:35 Nucleated RBC % 0.0 /100WBC 03/20/24 06:35 VBG pH 7.388 (7.31-7.41) 03/20/24 06:35 VBG pCO2 44.1 mmHg (41-51) 03/20/24 06:35 VBG pO2 28.3 mmHg (25-47) 03/20/24 06:35 VBG HCO3 26.0 mmol/L (23-28) 03/20/24 06:35 VBG Total CO2 27.3 mmol/L (24-29) 03/20/24 06:35 VBG O2 Saturation 57.8 % (60-80) L 03/20/24 06:35 VBG Base Excess 0.7 mmol/L (-2 - +2) 03/20/24 06:35 Sodium 134 mmol/L (135-145) L 03/20/24 06:35 Potassium 3.8 mmol/L (3.5-4.5) 03/20/24 06:35 Chloride 93 mmol/L (101-111) L 03/20/24 06:35 Carbon Dioxide 33 mmol/L (21-32) H 03/20/24 06:35 Anion Gap 8.0 (6-13) 03/20/24 06:35 BUN 20 mg/dL (6-20) 03/20/24 06:35 Creatinine 1.1 mg/dL (0.6-1.3) 03/20/24 06:35 Estimated GFR (MDRD) 48 (>89) L 03/20/24 06:35 Glucose 265 mg/dL (74-104) H 03/20/24 06:35 POC Whole Bld Glucose 229 mg/dL (70 - 100) H 03/20/24 17:56 Estimat Average Glucose 298 mg/dL (70-100) H 03/20/24 06:35 Hemoglobin A1c % 12.0 % (4.27-6.07) H 03/20/24 06:35 Calcium 9.4 mg/dL (8.5-10.3) 03/20/24 06:35 Phosphorus 3.2 mg/dL (2.5-5.0) 03/20/24 06:35 Magnesium 1.9 mg/dL (1.7-2.3) 03/20/24 06:35 Total Bilirubin 0.6 mg/dL (0.2-1.0) 03/20/24 06:35 AST 12 IU/L (10-42) 03/20/24 06:35 ALT 14 IU/L (10-60) 03/20/24 06:35 Alkaline Phosphatase 72 IU/L (42-121) 03/20/24 06:35 Troponin I High Sens 21.8 ng/L (2.3-14.8) H* 03/19/24 18:22 B-Natriuretic Peptide 260 pg/mL (5-100) H 03/19/24 18:22 Total Protein 7.6 g/dL (6.4-8.9) 03/20/24 06:35 Albumin 4.3 g/dL (3.2-5.5) 03/20/24 06:35 Globulin 3.3 g/dL (2.1-4.2) 03/20/24 06:35 Albumin/Globulin Ratio 1.3 (1.0-2.2) 03/20/24 06:35 Triglycerides 145 mg/dL (48-352) 03/20/24 06:35 Cholesterol 235 mg/dL (-200) H 03/20/24 06:35 LDL Cholesterol, Calc 141 mg/dL (-129) H 03/20/24 06:35 VLDL Cholesterol 29 mg/dL 03/20/24 06:35 HDL Cholesterol 65 mg/dL (60-) 03/20/24 06:35 LDL/HDL Ratio 2.2 (<4.4) 03/20/24 06:35 Cholesterol/HDL Ratio 3.6 (<4.4) 03/20/24 06:35 Lipase < 10 U/L (11-82) L 03/20/24 06:35 Procalcitonin Immunoas < 0.05 ng/mL (<0.5) 03/20/24 06:35 TSH 7.14 uIU/mL (0.34-5.60) H 03/20/24 06:35 Free T4 Direct 0.79 ng/dL (0.58-1.64) 03/20/24 06:35 Urine Color YELLOW 03/19/24 15:33 Urine Clarity CLOUDY (CLEAR) 03/19/24 15:33 Urine pH 6.0 PH (5.0-7.5) 03/19/24 15:33 Ur Specific [place] 1.025 (1.002-1.030) 03/19/24 15:33 Urine Protein 100 mg/dL (NEGATIVE) H 03/19/24 15:33 Urine Glucose (UA) 500 mg/dL (NEGATIVE) H 03/19/24 15:33 Urine Ketones 40 mg/dL (NEGATIVE) H 03/19/24 15:33 Urine Occult Blood SMALL (NEGATIVE) H 03/19/24 15:33 Urine Nitrite NEGATIVE (NEGATIVE) 03/19/24 15:33 Urine Bilirubin SMALL (NEGATIVE) H 03/19/24 15:33 Urine Urobilinogen 0.2 (NORMAL) E.U./dL (NORMAL) 03/19/24 15:33 Ur Leukocyte Esterase NEGATIVE (NEGATIVE) 03/19/24 15:33 Urine RBC 0-5 /HPF (0-5) 03/19/24 15:33 Urine WBC 0-3 /HPF (0-5) 03/19/24 15:33 Ur Squamous Epith Cells MANY Squamous (<= Few) H 03/19/24 15:33 Urine Bacteria Few /HPF (None Seen) 03/19/24 15:33 Ur Microscopic Review INDICATED 03/19/24 15:33 Urine Culture Comments NOT INDICATED 03/19/24 15:33 Urine Opiates Screen NEGATIVE (NEGATIVE) 03/19/24 15:33 Ur Buprenorphine Scrn NEGATIVE (NEGATIVE) 03/19/24 15:33 Ur Oxycodone Screen NEGATIVE (NEGATIVE) 03/19/24 15:33 Urine Methadone Screen NEGATIVE (NEGATIVE) 03/19/24 15:33 Ur Barbiturates Screen NEGATIVE (NEGATIVE) 03/19/24 15:33 Ur Tricyclics Screen NEGATIVE (NEGATIVE) 03/19/24 15:33 Ur Phencyclidine Scrn NEGATIVE (NEGATIVE) 03/19/24 15:33 Ur Amphetamine Screen NEGATIVE (NEGATIVE) 03/19/24 15:33 U Methamphetamines Scrn NEGATIVE (NEGATIVE) 03/19/24 15:33 U Benzodiazepines Scrn NEGATIVE (NEGATIVE) 03/19/24 15:33 Urine Cocaine Screen NEGATIVE (NEGATIVE) 03/19/24 15:33 U Cannabinoids Screen NEGATIVE (NEGATIVE) 03/19/24 15:33 Ur Drug Screen Comment CUTOFF CONC BELOW: 03/19/24 15:33 - Procedures Procedures: Procedures EXCISION OF ESOPHAGUS, ENDO, DIAGN (07/28/17)
[2024-03-21] MEDS: LEVOTHYROXINE 100 MCG TABLET PO SCH (06:11)
[2024-03-21] MEDS: PANTOPRAZOLE 40 MG TABLET PO SCH (06:12)
[2024-03-21 06:15] LABS: CALCIUM 9.4 mg/dL (8.5-10.3); MAGNESIUM 1.9 mg/dL (1.7-2.3); PHOSPHORUS 2.4 mg/dL (2.5-5.0); POTASSIUM 3.4 mmol/L (3.5-4.5)
[2024-03-21] MEDS: INSULIN LISPRO 300 UNIT/3 ML PEN SUBQ SCH ×2 (08:39)
[2024-03-21 13:00] LABS: ESTIMATED AVERAGE GLUCOSE 295 mg/dL (70-100); HEMOGLOBIN A1c% 11.9 % (4.27-6.07)
--- NOTE | 2024-03-21 15:25 | Discharge Plan ---
Discharge Plan Problem Reviewed?: Yes Disposition: Home, Self Care Condition: Stable Prescriptions: Amlodipine Besylate 5 mg PO DAILY #30 tab Blood-Glucose Meter [Glucometer] 1 each ACHS #1 each Blood Sugar Diagnostic [Glucometer Strips] 1 each ACHS #120 strip Insulin Lispro [Humalog Kwikpen U-100] 5 unit SUBQ TIDWM #3 ml Insulin Lispro [Humalog Kwikpen U-100] 1 - 9 unit SUBQ 0800,1200,1700,2100 #3 ml Levothyroxine [Synthroid] 150 mcg ORAL QDAC #30 tab Diet: Diabetic Activity Restrictions: Activity as Tolerated Shower Restrictions: No Driving Restrictions: Yes Weight Bearing: Full Weight Instruction Topics: Diabetes Nursing Home Complications Health Concerns: Chel Wilson is a 78-year-old woman who presented to the emergency room on March 19, 2024 with complaints of nausea and vomiting. In the emergency room she appeared to be somnolent. In the emergency room, she underwent a CT scan of the abdomen and pelvis for right upper quadrant pain and CT scan revealed no acute intra-abdominal or pelvic process. She was admitted to the hospital under observation status. Upon admission it was felt that her somnolence and encephalopathy was most likely secondary to antinausea medications. On hospital day #2 the patient had some episodes of nausea and vomiting but overall improved and on hospital day #3 her nausea and vomiting had resolved. During her hospitalization, patient was given diabetic teaching and instructed to use a sliding scale and follow-up with her primary care physician. It is recommended that she not take the metformin because it can result in nausea and vomiting. 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 Plan of Treatment: 1. Continue all medications as prescribed. 2. Follow-up with your primary care provider, Dr. Elsa Tillman. 3. Recommend discontinuing metformin because it may be the cause of your nausea and vomiting. 4. Arrangements have been made for patient to be transported to home tonight by [employer]. 5. Patient will be picked up tomorrow by [employer] at 8 AM and transported to [facility] to obtain her medications. 6. Please stop taking Metformin. 7. Please take your insulin as directed using the directions below: For Lispro: Basal insulin dose = 5 units subcutaneously If Glucose is less than 60, please eat some food, chocolate or have some apple juice or orange juice. If Glucose less than 100 do not give any insulin with meal. If Glucose 100-139, give basal insulin (5 units subcutaneously) dose only If Glucose greater than or equal to 140, give basal insulin plus sliding scale: Moderate High Dose Algorithm 141-180 2 unit 181-225 4 units 226-275 6 units 276-325 8 units 326-375 10 units > 375 contact MD Please keep a log of your blood sugars and doses of insulin with each dose for 2 weeks prior to seeing your health provider. Care Goals: Goal of care is to avoid symptoms of nausea and vomiting and obtain better control of serum glucose. Assessment: (1) Toxic metabolic encephalopathy Conclusion/Plan: Encephalopathy felt to be most likely secondary to her anti-nausea medications. (2) Nausea and vomiting Conclusion/Plan: Etiology unclear nausea and vomiting have resolved. Etiology unclear but may be related to metformin. Recommend discontinuing metformin. Qualifiers: Vomiting type: unspecified Qualified Code(s): R11.2 - Nausea with vomiting, unspecified (3) Hypoxia Conclusion/Plan: Resolved. (4) Hypertension Conclusion/Plan: Continue amlodipine (5) Hypokalemia Conclusion/Plan: Potassium replaced during hospitalization. (6) Hypothyroidism Conclusion/Plan: Restart levothyroxine at 150 mcg daily. Qualifiers: Hypothyroidism type: acquired Qualified Code(s): E03.9 - Hypothyroidism, unspecified (7) DM2 (diabetes mellitus, type 2) Conclusion/Plan: Hemoglobin A1c is 12. Recommend close follow-up with primary care provider to obtain more diabetic education and most likely start a long-acting insulin, in addition to a sliding scale. No Smoking: If you smoke, Please STOP! Call for help. Follow-up with: Elsa Tillman MD [Provider Admit Priv/Credential] -
--- NOTE | 2024-03-21 15:25 | DISCHARGE SUMMARY ---
Discharge Summary Admit Date: 03/19/24 Discharge Date: 03/21/24 Discharging Provider: Lakhwinder Alvares MD Primary Care Provider: Elsa Tillman MD Code Status: Attempt Resuscitation Condition at Discharge: Stable Discharge Disposition: 01 Home, Self Care - DIAGNOSES Admission Diagnoses: (1) Toxic metabolic encephalopathy (2) Nausea and vomiting (3) Hypoxia (4) Hypertension (5) Hypokalemia (6) Hypothyroidism (7) DM2 (diabetes mellitus, type 2) Discharge Diagnoses with Status of Each Condition: (1) Toxic metabolic encephalopathy (2) Nausea and vomiting (3) Hypoxia (4) Hypertension (5) Hypokalemia (6) Hypothyroidism - HPI History of Present Illness: Chel Wilson is a 78-year-old woman who presented to the emergency room on March 19, 2024 with complaints of nausea and vomiting. In the emergency room she appeared to be somnolent. In the emergency room, she underwent a CT scan of the abdomen and pelvis for right upper quadrant pain and CT scan revealed no acute intra-abdominal or pelvic process. She was admitted to the hospital under observation status. Upon admission it was felt that her somnolence and encephalopathy was most like ly secondary to antinausea medications. On hospital day #2 the patient had some episodes of nausea and vomiting but overall improved and on hospital day #3 her nausea and vomiting had resolved. During her hospitalization, patient was given diabetic teaching and instructed to use a sliding scale and follow-up with her primary care physician. It is recommended that she not take the metformin because it can result in nausea and vomiting. 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 - HOSPITAL COURSE Hospital Course: See HPI - ALLERGIES Allergies/Adverse Reactions: Allergies Allergy/AdvReac Type Severity Reaction Status Date / Time amoxicillin Allergy Unknown Verified 03/19/24 14:02 haloperidol [From Haldol] Allergy Unknown Verified 03/19/24 14:02 haloperidol lactate * Allergy Unknown Verified 03/19/24 14:02 [From Haldol] lisinopril Allergy Unknown Verified 03/19/24 14:02 - MEDICATIONS Home Medications: Ambulatory Orders Medication Instructions Recorded Confirmed hydroCHLOROthiazide 25 mg PO DAILY 06/01/17 03/20/24 [Hydrochlorothiazide] Omeprazole Magnesium 20 mg PO BID 09/22/22 03/20/24 Fluticasone Propionate 2 sprays SARMAD DAILY 03/20/24 03/20/24 Ibuprofen [Motrin] 1 tablet PO DAILY PRN 03/20/24 03/20/24 QUEtiapine [SEROquel] 50 mg PO QPM 03/20/24 03/20/24 Amlodipine Besylate 5 mg PO DAILY #30 tab 03/21/24 Blood Sugar Diagnostic [Glucometer 1 each ACHS #120 strip 03/21/24 Strips] Blood-Glucose Meter [Glucometer] 1 each ACHS #1 each 03/21/24 Insulin Lispro [Humalog Kwikpen 1 - 9 unit SUBQ 03/21/24 U-100] 0800,1200,1700,2100 #3 ml Insulin Lispro [Humalog Kwikpen 5 unit SUBQ TIDWM #3 ml 03/21/24 U-100] Levothyroxine [Synthroid] 150 mcg ORAL QDAC #30 tab 03/21/24 - PHYSICAL EXAM AT DISCHARGE General Appearance: positive: No acute distress, Mild distress Eyes Bilateral: positive: No scleral icterus Neck: positive: No JVD, Trachea midline Respiratory: positive: Breath sounds nml Cardiovascular: positive: No murmur Abdomen: positive: Non-tender, Nml bowel sounds Skin: positive: No rash Extremities: positive: Nml appearance Neurologic/Psychiatric: positive: Oriented x3, Motor nml - LABS Result Diagrams: 03/20/24 06:35 03/21/24 05:06 - FOLLOW UP Follow Up: Please follow-up with - TIME SPENT Time Spent in Discharge (Minutes): 25
[2024-03-21 15:47] VITALS: BP 142/82; O2SAT 95
[2024-03-21] MEDS: POTASSIUM CHLORIDE 20 MEQ TABLET PO ONE (17:19)
[2024-03-22] MEDS ORDERED: LEVOTHYROXINE 75 MCG TABLET PO SCH (07:00)
== END 2024-03-21 17:45 | disposition home or self-care (01) | DRG 93 ==
LOC: EDUNIT# → ED 13:53 → MS2 20:51 → OBSVTOIN 03-20 15:52
PROVIDERS: ADMIT Internal Medicine; ATTEND Internal Medicine
DX: T42.6X1A Poisoning by other antiepileptic and sedative-hypnotic drugs, accidental (unintentional), initial encounter (principal); G92.8 Other toxic encephalopathy; T42.6X5A Adverse effect of other antiepileptic and sedative-hypnotic drugs, initial encounter; I10 Essential (primary) hypertension; E03.9 Hypothyroidism, unspecified; E11.9 Type 2 diabetes mellitus without complications; R05.9 Cough, unspecified; E78.5 Hyperlipidemia, unspecified; R10.11 Right upper quadrant pain; E87.6 Hypokalemia; J45.909 Unspecified asthma, uncomplicated; K21.9 Gastro-esophageal reflux disease without esophagitis; K44.9 Diaphragmatic hernia without obstruction or gangrene; R09.02 Hypoxemia; R10.13 Epigastric pain; R11.2 Nausea with vomiting, unspecified; R40.0 Somnolence; Z79.84 Long term (current) use of oral hypoglycemic drugs; Z79.890 Hormone replacement therapy; Z79.899 Other long term (current) drug therapy; Z88.0 Allergy status to penicillin; Z88.8 Allergy status to other drugs, medicaments and biological substances; Z90.49 Acquired absence of other specified parts of digestive tract
CPT/HCPCS: 36415; 71045; 74177; 80048; 80053; 80061; 80306; 81001; 82803; 83036; 83690; 83735; 83880; 84100; 84145; 84439; 84443; 84484; 85025; 96361; 96365; 96366; 96367; 96375; 96376; 97162; 97164; 97166; 97530; 99285; A9270; G0378; J1815; J7040; Q9967; 81003; 83721; 87086; 87637

== ENCOUNTER 2024-05-13 20:12 | Outpatient (CLI) | payer MEDICARE, MEDICAID | END 2024-05-13 20:13 | disposition critical access hospital (66) | LOC: EMS 20:12 | DX: R11.2 Nausea with vomiting, unspecified (principal); R10.11 Right upper quadrant pain; R10.12 Left upper quadrant pain; R10.812 Left upper quadrant abdominal tenderness; R10.811 Right upper quadrant abdominal tenderness | CPT/HCPCS: A0425; A0427 ==

== ENCOUNTER 2024-05-13 20:47 | Inpatient (IN) | payer MEDICARE, MEDICAID ==
[2024-05-13 21:57] LABS: BASOPHILS % (AUTO) 0.3 %; EOSINOPHILS % (AUTO) 0.1 %; HGB - HEMOGLOBIN 12.8 g/dL (12.0-16.0); LYMPHOCYTES # (AUTO) 0.6 10^3/uL (1.5-3.5); LYMPHOCYTES % (AUTO) 6.9 %; MEAN CORPUSCULAR HEMOGLOBIN 29.6 pg (27.0-31.0); MEAN CORPUSCULAR VOLUME 92.4 fL (81.0-99.0); MEAN PLATELET VOLUME 10.4 fL (7.9-10.8); MONOCYTES # (AUTO) 0.4 10^3/uL (0.0-1.0); MONOCYTES % (AUTO) 4.2 %; NEUTROPHILS # (AUTO) 7.8 10^3/uL (1.5-6.6); NEUTROPHILS % (AUTO) 88.1 %; PLT - PLATELET COUNT 272 10^3/uL (130-450); RED BLOOD COUNT 4.33 10^6/uL (4.20-5.40); RED CELL DISTRIBUTION WIDTH 13.2 % (12.0-15.0); WHITE BLOOD COUNT 8.9 x10^3/uL (4.8-10.8)
[2024-05-13 21:58] LABS: BILIRUBIN,URINE NEGATIVE (NEGATIVE); GLUCOSE, URINE (UA) >=1000 mg/dL (NEGATIVE); KETONES,URINE (UA) 15 mg/dL (NEGATIVE); LEUKOCYTE ESTERASE, URINE NEGATIVE (NEGATIVE); NITRITE,URINE NEGATIVE (NEGATIVE); OCCULT BLOOD,URINE NEGATIVE (NEGATIVE); PH,URINE 7.5 PH (5.0-7.5); PROTEIN,URINE TRACE mg/dL (NEGATIVE); UROBILINOGEN,URINE 0.2 (NORMAL) E.U./dL (NORMAL)
[2024-05-13] MEDS ORDERED: ONDANSETRON 4 MG/2 ML VIAL ONE (21:59)
[2024-05-13 22:01] LABS: CLARITY,URINE CLEAR (CLEAR)
[2024-05-13] MEDS: ONDANSETRON 4 MG/2 ML VIAL IVP STA (22:07)
[2024-05-13] MEDS: FAMOTIDINE 20 MG/2 ML VIAL IVP STA (22:07)
[2024-05-13] MEDS: LABETALOL 20 MG/4 ML SYRINGE IVP STA ×2 (22:07→23:16)
[2024-05-13 22:10] LABS: KETONES, SERUM (ACETEST) SMALL (NEGATIVE)
[2024-05-13 22:19] LABS: VBG BASE EXCESS 3.4 mmol/L (-2 - +2); VBG HCO3 29.8 mmol/L (23-28); VBG OXYGEN SATURATION 77.7 % (60-80); VBG PCO2 52.6 mmHg (41-51); VBG PH 7.371 (7.31-7.41); VBG PO2 41.4 mmHg (25-47); VBG TOTAL CO2 31.4 mmol/L (24-29)
[2024-05-13 22:20] LABS: ALBUMIN 4.1 g/dL (3.2-5.5); ALBUMIN/GLOBULIN RATIO 1.3 (1.0-2.2); ALKALINE PHOSPHATASE 67 IU/L (42-121); ALT ALANINE AMINOTRANSFERASE 13 IU/L (10-60); AST ASPARTATE AMINOTRANSFERASE 10 IU/L (10-42); BILIRUBIN,TOTAL 0.6 mg/dL (0.2-1.0); BUN - BLOOD UREA NITROGEN 14 mg/dL (6-20); CALCIUM 9.8 mg/dL (8.5-10.3); CARBON DIOXIDE - CO2 32 mmol/L (21-32); CHLORIDE 92 mmol/L (101-111); CREATININE 0.7 mg/dL (0.6-1.3); GFR - MDRD 81 (>89); GLUCOSE 326 mg/dL (74-104); LIPASE 21 U/L (11-82); POTASSIUM 3.1 mmol/L (3.5-4.5); SODIUM 132 mmol/L (135-145); TOTAL PROTEIN 7.3 g/dL (6.4-8.9)
[2024-05-13] MEDS ORDERED: iohexoL-300 100 ML VIAL ONE (22:20)
[2024-05-13] MEDS: iohexoL-300 100 ML VIAL IVP ONE (22:34)
[2024-05-13] MEDS: KETOROLAC 15 MG/ML VIAL IVP STA (23:15)
[2024-05-13] MEDS: METOCLOPRAMIDE 10 MG/2 ML VIAL IVP STA (23:15)
[2024-05-13] MEDS: POTASSIUM CHLOR 10 MEQ/100 ML 10 MEQ/100 ML BAG IV STA (23:15)
[2024-05-13] MEDS: SODIUM CHLORIDE 0.9% 1,000 ML IV STA (23:15)
--- NOTE | 2024-05-13 23:19 | CT Report ---
PROCEDURE: Abdomen/Pelvis W INDICATIONS: LLQ pain CONTRAST: Omni 300, 100mls TECHNIQUE: After the administration of intravenous contrast, a CT scan of the abdomen and pelvis was performed. Images were recorded and evaluated at appropriate window settings. Reformats: coronal and sagittal. F or radiation dose reduction, the following was used: automated exposure control, adjustment of mA and /or kV according to patient size. COMPARISON: 03/19/2024 FINDINGS: Image quality: Diagnostic. Mild motion artifact. Lower chest: Mild bibasilar atelectasis/scarring. There is a moderate hiatal hernia. Overall heart si ze is within normal limits. There are coronary and annular calcifications. Liver: Suspected hepatic steatosis. Subcentimeter lesions are too small to characterize, seen previou sly, probably cysts or hemangiomas. Gallbladder and biliary system: Unremarkable, nondilated Pancreas: No ductal dilation Spleen: Nonenlarged Adrenals: No discrete nodules Kidneys: No solid mass or hydronephrosis Vessels and lymph nodes: Main portal vein is patent. No abdominal aortic aneurysm. No pathologic lymp h nodes by size criteria. Bowel and peritoneum: No evidence of small bowel obstruction. No drainable abscess or pathologic asci kathy. Colonic diverticula are seen. No CT evidence of significant acute inflammation. Postsurgical jose juan nges in the right lower quadrant. Body wall: Unremarkable Pelvis: Bladder is unremarkable. Reproductive organs are unremarkable on limited CT evaluation Bones: No acute or suspicious osseous finding. Pubic symphysis degenerative changes. IMPRESSION: No acute abdominopelvic abnormality. Colonic diverticula are seen, without CT evidence of acute inflammation. Moderate hiatal hernia. Other findings above. Reviewed by: Ke Austin MD on 05/13/2024 11:18 PM PDT Approved by: Ke Austin MD on 05/13/2024 11:18 PM PDT Station ID: [id number]
[2024-05-13] MEDS: MORPHINE 2 MG/ML CARPUJECT IVP STA (23:28)
[2024-05-14] MEDS: INSULIN REGULAR, HUMAN 300 UNIT/3 ML PEN IVP STA (00:30)
[2024-05-14] MEDS: POTASSIUM CHLORIDE 20 MEQ/15 ML UDC PO STA (00:30)
[2024-05-14] MEDS: POTASSIUM CHLOR 10 MEQ/100 ML 10 MEQ/100 ML BAG IV STA (00:32)
--- NOTE | 2024-05-14 00:40 | ED Physician Documentation ---
History of Present Illness - Stated complaint Stated Complaint: L SIDE PX/NAUSEA - Chief complaint Chief Complaint: Abd Pain - History obtained from History obtained from: Patient - Additonal information Additional information: 78-year-old woman with recent admission for toxic encephalopathy 03/19 to 03/21, diabetes, high blood pressure, hyperlipidemia presents with nausea and vomiting of uncertain length of time along with left flank pain for the past 6 days. Patient received Zofran and Toradol prior to arrival via EMS. Patient is AO x 3 but Slow to answer questions and with flight of response. history is otherwise limited by apparent confusion. 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 : None HEENT: None Psych: Anxiety Musculoskeletal: Osteoarthritis, Chronic back pain Derm: None - Past Surgical History Past Surgical History: Yes General: Appendectomy, Bowel surgery - Present Medications Home Medications: Ambulatory Orders Medication Instructions Recorded Confirmed hydroCHLOROthiazide 25 mg PO DAILY 06/01/17 05/14/24 [Hydrochlorothiazide] Omeprazole Magnesium 20 mg PO BID 09/22/22 05/14/24 Fluticasone Propionate 2 sprays SARMAD DAILY 03/20/24 05/14/24 Ibuprofen [Motrin] 1 tablet PO DAILY PRN 03/20/24 05/14/24 QUEtiapine [SEROquel] 50 mg PO QPM 03/20/24 05/14/24 Amlodipine Besylate 5 mg PO DAILY #30 tab 03/21/24 05/14/24 Blood Sugar Diagnostic [Glucometer 1 each ACHS #120 strip 03/21/24 05/14/24 Strips] Blood-Glucose Meter [Glucometer] 1 each ACHS #1 each 03/21/24 05/14/24 Insulin Lispro [Humalog Kwikpen 1 - 9 unit SUBQ 03/21/24 05/14/24 U-100] 0800,1200,1700,2100 #3 ml Insulin Lispro [Humalog Kwikpen 5 unit SUBQ TIDWM #3 ml 03/21/24 05/14/24 U-100] Levothyroxine [Synthroid] 150 mcg ORAL QDAC #30 tab 03/21/24 05/14/24 - Allergies Allergies/Adverse Reactions: Allergies Allergy/AdvReac Type Severity Reaction Status Date / Time amoxicillin Allergy Unknown Verified 05/13/24 20:58 haloperidol [From Haldol] Allergy Unknown Verified 05/13/24 20:58 haloperidol lactate * Allergy Unknown Verified 05/13/24 20:58 [From Haldol] lisinopril Allergy Unknown Verified 05/13/24 20:58 - Social History Does the pt smoke?: No Smoking Status: Never smoker Does the pt drink ETOH?: No Does the pt have substance abuse?: No - Immunizations Immunizations are current?: Yes - POLST Patient has POLST: No POLST Status: Full Code (pt state she want full code) PD ED PE NORMAL - Vitals Vital signs reviewed: Yes - General General: No acute distress, Well developed/nourished - HEENT HEENT: Atraumatic, PERRL, EOMI - Neck Neck: Supple, no meningeal sign - Cardiac Cardiac: RRR - Respiratory Respiratory: No respiratory distress, Clear bilaterally - Abdomen Abdomen: Non tender, Non distended - Derm Derm: Normal color, Warm and dry - Neuro Neuro: Other (Intermittently alert and oriented then confused appearing) - Psych Psych: Normal mood, Normal affect Results - Vitals Vitals: Vital Signs - 24 hr 05/13/24 05/13/24 05/13/24 20:55 21:21 22:00 Temperature 36.4 C L Heart Rate 87 80 70 Respiratory 26 H 20 19 Rate Blood Pressure 213/114 H 227/105 H 224/155 H O2 Saturation 92 97 98 If not protocol 2 : Oxygen Flow, liters/minute 05/13/24 05/13/24 05/13/24 22:15 22:59 23:44 Temperature Heart Rate 70 80 70 Respiratory 18 19 18 Rate Blood Pressure 210/108 H 191/105 H 155/104 H O2 Saturation 95 94 98 If not protocol 2 2 : Oxygen Flow, liters/minute 05/14/24 05/14/24 05/14/24 00:44 01:45 03:00 Temperature Heart Rate 70 75 70 Respiratory 19 18 18 Rate Blood Pressure 171/93 H 175/94 H 174/95 H O2 Saturation 98 98 99 If not protocol 2 : Oxygen Flow, liters/minute Oxygen O2 Source [With Activity] Room air O2 Source Room air Oxygen Flow Rate 2 - Labs Labs: Laboratory Tests 07/02/0105/13/24 05/13/24 21:20 21:51 21:51 WBC 8.9 RBC 4.33 Hgb 12.8 Hct 40.0 MCV 92.4 MCH 29.6 MCHC 32.0 RDW 13.2 Plt Count 272 MPV 10.4 Neut # (Auto) 7.8 H Lymph # (Auto) 0.6 L [place] # (Auto) 0.4 Eos # (Auto) 0.0 Baso # (Auto) 0.0 Absolute Nucleated RBC 0.00 Nucleated RBC % 0.0 VBG pH VBG pCO2 VBG pO2 VBG HCO3 VBG Total CO2 VBG O2 Saturation VBG Base Excess Sodium 132 L Potassium 3.1 L Chloride 92 L Carbon Dioxide 32 Anion Gap 8.0 BUN 14 Creatinine 0.7 Estimated GFR (MDRD) 81 L Glucose 326 H Calcium 9.8 Total Bilirubin 0.6 AST 10 ALT 13 Alkaline Phosphatase 67 Total Protein 7.3 Albumin 4.1 Globulin 3.2 Albumin/Globulin Ratio 1.3 Lipase 21 Urine Color YELLOW Urine Clarity CLEAR Urine pH 7.5 Ur Specific [place] 1.020 Urine Protein TRACE Urine Glucose (UA) >=1000 H Urine Ketones 15 H Urine Occult Blood NEGATIVE Urine Nitrite NEGATIVE Urine Bilirubin NEGATIVE Urine Urobilinogen 0.2 (NORMAL) Ur Leukocyte Esterase NEGATIVE Ur Microscopic Review NOT INDICATED Urine Culture Comments NOT INDICATED Serum Ketones SMALL H 05/13/24 21:51 WBC RBC Hgb Hct MCV MCH MCHC RDW Plt Count MPV Neut # (Auto) Lymph # (Auto) [place] # (Auto) Eos # (Auto) Baso # (Auto) Absolute Nucleated RBC Nucleated RBC % VBG pH 7.371 VBG pCO2 52.6 H VBG pO2 41.4 VBG HCO3 29.8 H VBG Total CO2 31.4 H VBG O2 Saturation 77.7 VBG Base Excess 3.4 H Sodium Potassium Chloride Carbon Dioxide Anion Gap BUN Creatinine Estimated GFR (MDRD) Glucose Calcium Total Bilirubin AST ALT Alkaline Phosphatase Total Protein Albumin Globulin Albumin/Globulin Ratio Lipase Urine Color Urine Clarity Urine pH Ur Specific [place] Urine Protein Urine Glucose (UA) Urine Ketones Urine Occult Blood Urine Nitrite Urine Bilirubin Urine Urobilinogen Ur Leukocyte Esterase Ur Microscopic Review Urine Culture Comments Serum Ketones PD Medical Decision Making - ED course ED course: 78-year-old woman with history of diabetes, high blood pressure, hyperlipidemia, with recent hospitalization 03/19 to 03/21 for toxic encephalopathy, presents with nonbloody nonbilious nausea and vomiting and left flank pain radiating Diffusely to the abdomen with unclear timeline. Patient initially alert and oriented x 3 but has waxing and waning level of consciousness, at 1 point stating that the "cyber people" are after her and her neighbors are involved and this is the cause of her symptoms.Patient was provided with 2 doses of 10 mg IV labetalol for severe elevated blood pressure in the setting of encephalopathy. Her lab work is indicating elevated blood glucose, positive serum ketones, metabolic derangements including hypokalemia and hyponatremia.Patient was provided with IV and oral potassium as well as insulin and fluids. Plan to admit to [facility] for further management. Departure - Departure Disposition: [facility] Clinical Impression: Abdominal pain, Diarrhea, Hyperglycemia, Altered mental status Condition: Stable Discharge Date/Time: 05/14/24 05:16
[2024-05-14] MEDS: DROPERIDOL 5 MG/2 ML VIAL IVP STA (03:24)
--- NOTE | 2024-05-14 04:16 | HISTORY & PHYSICAL EXAMINATION ---
Chief Complaint - Chief Complaint Chief Complaint: abdominal pain, N/V History of Present Illness - Admitted From Admitted From:: home - History Obtained From Records Reviewed: chart review History obtained from: patient, ER staff, chart review Exam Limitations: telemedicine - History of Present Illness HPI Comment/Other: Ms Wilson is a 78 yo F with history of HTN, DM II, restless leg syndrome, GERD, hypothyroidism. Presents to ER for evaluation of nausea, vomiting, abdominal pain. Was found to have markedly elevated blood pressure 213/114. Improved with IV labetalol pushes x2. Also had elevated blood glucose. Patient was reportedly AAOX3 but had waxing/waning consciousness initially open arrival to ER. Recent hospitalization in March for acute encephalopathy. Patient reports compliance with home medications. Onset of symptoms with nausea and vomiting, history of GERD. Last 2 days has been worse with pain in her LUQ. LUQ pain is aching, 10/10 intensity at times, currently approximately 6/10. Emesis is yellow/mucous, denies hematemesis. Vomits ~10 times per day. Denies blood in stool. Has had altern ating diarrhea/constipation, painful, ongoing for the past 10 days. History of bowel resection in 1996 for perforated appendicitis. Last colonoscopy ~10 years ago. Reports hot and cold and sweats over the past few days. Patient did state "I know what it is, cyber hits on my house, they are torturing me" - noted she made similar comments about cyber hits earlier with ER provider as well. Patient reports she takes Seroquel 25 mg qhs for restless legs. Pt lives alone, reports that she takes care of herself, prepares meals, etc. 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 : reports: None HEENT: reports: None Psych: reports: Anxiety Musculoskeletal: reports: Osteoarthritis, Chronic back pain Derm: reports: None MRSA Hx?: No - Past Surgical History General: reports: Appendectomy, Bowel surgery - Family & Social History Social History Notes: pt report she had a home at [facility], not homeless - Substance History Use: Uses substance without health or social issues: NONE - POLST Patient has POLST: No POLST Status: Full Code (pt state she want full code) Meds/Allgy - Home Medications Home Medications: Ambulatory Orders Medication Instructions Recorded Confirmed hydroCHLOROthiazide 25 mg PO DAILY 06/01/17 05/14/24 [Hydrochlorothiazide] Omeprazole Magnesium 20 mg PO BID 09/22/22 05/14/24 Fluticasone Propionate 2 sprays SARMAD DAILY 03/20/24 05/14/24 Ibuprofen [Motrin] 1 tablet PO DAILY PRN 03/20/24 05/14/24 QUEtiapine [SEROquel] 50 mg PO QPM 03/20/24 05/14/24 Amlodipine Besylate 5 mg PO DAILY #30 tab 03/21/24 05/14/24 Blood Sugar Diagnostic [Glucometer 1 each [facility] #120 strip 03/21/24 05/14/24 Strips] Blood-Glucose Meter [Glucometer] 1 each ACHS #1 each 03/21/24 05/14/24 Insulin Lispro [Humalog Kwikpen 1 - 9 unit SUBQ 03/21/24 05/14/24 U-100] 0800,1200,1700,2100 #3 ml Insulin Lispro [Humalog Kwikpen 5 unit SUBQ TIDWM #3 ml 03/21/24 05/14/24 U-100] Levothyroxine [Synthroid] 150 mcg ORAL QDAC #30 tab 03/21/24 05/14/24 - Allergies Allergies/Adverse Reactions: Allergies Allergy/AdvReac Type Severity Reaction Status Date / Time amoxicillin Allergy Unknown Verified 05/13/24 20:58 haloperidol [From Haldol] Allergy Unknown Verified 05/13/24 20:58 haloperidol lactate * Allergy Unknown Verified 05/13/24 20:58 [From Haldol] lisinopril Allergy Unknown Verified 05/13/24 20:58 Exam - Vital Signs Reviewed Vital Signs: Yes Vital Signs: Vital Signs x48h Temp Pulse Resp BP Pulse Ox O2 Flow Rate 05/14/24 03:00 70 18 174/95 H 99 05/14/24 01:45 75 18 175/94 H 98 05/14/24 00:44 70 19 171/93 H 98 2 05/13/24 23:44 70 18 155/104 H 98 05/13/24 22:59 80 19 191/105 H 94 2 05/13/24 22:15 70 18 210/108 H 95 2 05/13/24 22:00 70 19 224/155 H 98 05/13/24 21:21 80 20 227/105 H 97 2 05/13/24 20:55 36.4 C L 87 26 H 213/114 H 92 - Physical Exam General Appearance: positive: Alert, Mild distress (periods of dry heaving) Respiratory: positive: No respiratory distress Abdomen: positive: Tenderness (LUQ per patient exam) Skin: positive: Color nml, No rash Neurologic/Psychiatric: positive: Oriented x3. negative: Slurred/abnml speech Conclusion/Plan - Lab Results Lab results reviewed: Yes Fish Bones: 05/13/24 21:51 05/13/24 21:51 - Diagnostic Imaging Results Diagnostic Imaging Results: positive: Final report reviewed - Other Other Results/Comments: Hypertensive emergency -Blood pressure improved with IV labetalol pushes -Continue home medications -Continue to trend BP trends -classroom monitor -?Medication noncompliance (vs absorption given frequent emesis) Acute metabolic encephalopathy -No signs of ongoing encepahalopathy at time of my evaluation, although she did comment about "cyber hits" -Afebrile, no elevated leukocytosis, UA negative for signs of infection -Continue to monitor closely, consider psychiatry consultation if ongoing concerns of hallucinations/delusions -SW consult for home safety assessment, lives alone Abdominal pain, nausea, vomiting Hx GERD -Etiology unclear, possible viral gastroenteritis, CT abd no acute findings -Noted hiatal hernia, IV PPI for now -Diet as tolerated -Anti-emetics PRN Hx DM II, hyperglycemia -SSI, monitor Hypokalemia -Received supplementation in ER, trend labs Hypothyroidism -Continue Synthroid DVT ppx: Lovenox sc Full code Telemedicine Consult Details - Provider Location & Consult Time Telemedicine consultation conducted via videoconferencing?: Yes List names and roles of persons who participated in consult:: MD, ER staff, patient Telemedicine provider location:: [facility] [place]
[2024-05-14] MEDS: ONDANSETRON 4 MG/2 ML VIAL IVP PRN (05:50)
[2024-05-14] MEDS: SODIUM CHLORIDE FLUSH 0.9% 10 ML SYRINGE IVP SCH (05:50)
[2024-05-14 06:01] LABS: CALCIUM 9.6 mg/dL (8.5-10.3); CREATININE 0.7 mg/dL (0.6-1.3); MAGNESIUM 1.4 mg/dL (1.7-2.3); POTASSIUM 3.3 mmol/L (3.5-4.5)
[2024-05-14] MEDS: LEVOTHYROXINE 100 MCG TABLET PO SCH (06:46)
[2024-05-14] MEDS: amLODIPine 5 MG TABLET PO SCH (06:46)
[2024-05-14] MEDS: PROCHLORPERAZINE 10 MG/2 ML VIAL IVP PRN (06:47)
[2024-05-14] MEDS: HYDROmorphone 0.5 MG/0.5 ML SYRINGE IVP PRN (06:51)
[2024-05-14] MEDS: MAGNESIUM SULFATE 2 GRAM 2 GM/50 ML BAG IV ONE (07:46)
[2024-05-14] MEDS: POTASSIUM CHLOR 10 MEQ/100 ML 10 MEQ/100 ML BAG IV ONE (07:54)
[2024-05-14] MEDS: INSULIN LISPRO 300 UNIT/3 ML PEN SUBQ SCH ×2 (08:29→17:08)
[2024-05-14] MEDS: ENOXAPARIN 40 MG/0.4 ML SYRINGE SUBQ SCH (08:30)
[2024-05-14] MEDS: PANTOPRAZOLE 40 MG VIAL IV SCH (08:33)
[2024-05-14] MEDS: LABETALOL 20 MG/4 ML SYRINGE IVP ONE (08:56)
[2024-05-14] MEDS ORDERED: AMLODIPINE BESYLATE 2.5 MG PO SCH (09:00)
[2024-05-14] MEDS ORDERED: amLODIPine 5 MG TABLET PO SCH (09:00)
[2024-05-14] MEDS ORDERED: hydroCHLOROthiazide 25 MG TABLET PO SCH (09:00)
--- NOTE | 2024-05-14 10:19 | PROVIDER PROGRESS NOTE ---
Subjective - Prog Note Date Prog Note Date: 05/14/24 Prog Note Time: 10:09 - Subjective Pt reports feeling: Improved Subjective: When I initially saw this patient this AM she was sitting up starting her breakfast. she was hungry, and eating well. She was not forthcoming with history. Had gotten dilaudid quite recently. When asked about who helps her when she needs help- she says no one. When asked about surrogate decision maker, she says she does not have those kinds of problems. When asked about management of her chronic medical problems, she says she is working with her doctor, Dr Tillman. several hours later, she is sitting up, resting. wants to be asleep. not forthcoming with history once again. When pressed, she says she is without pain for the first time in quite a while, and would like to rest. she does tell me that this abdominal pain is a new pain, that has been present for about 4 days. She denies drug or alcohol use. Pharmacy records indicate no fills for diabetic medication. When asked about this, she states that she does not want to take insulin and that she is working with her doctor on this. she is not taking any medications for her diabetes. I explained to her that her most recent Hbg A1C was 12, and that the chronic n/v and pain that she has could be related to diabetic gastroparesis. I asked her about the ideas she has regarding "cyber hits". she says that this has to do with her neighborhood and her situation and that she does not want to talk about it this AM. Wants time to collect her thoughts. I asked what we might do for her here in the hospital, and she says that she just wants to rest. When asked about compliance with treatment of her chronic medical problems, she states that she is working with her doctor, and does not want to share further information. Eyes are usually closed for the majority of the interview and she does not often make eye contact with me. I have checked back in on her several times during the day today, and she is sleeping. Current Medications - Current Medications Current Medications: Medications Acetaminophen (Acetaminophen 325 Mg Tablet) 650 mg PO Q4HR PRN PRN Reason: Pain 1 to 4, or Fever Amlodipine Besylate (Amlodipine 5 Mg Tablet) 5 mg PO DAILY [facility] Last Admin: 05/14/24 06:46 Dose: 5 mg Enoxaparin Sodium (Enoxaparin 40 Mg/0.4 Ml Syringe) 40 mg SUBQ DAILY [facility] Last Admin: 05/14/24 08:30 Dose: 40 mg Insulin Human Lispro (Insulin Lispro 300 Unit/3 Ml Pen) 1 - 9 unit SUBQ 0800,1200,1700,2100 [facility]; Protocol Last Admin: 05/14/24 08:29 Dose: 7 unit Levothyroxine Sodium (Levothyroxine 100 Mcg Tablet) 150 mcg PO QDAC [facility] Last Admin: 05/14/24 06:46 Dose: 150 mcg Ondansetron HCl (Ondansetron 4 Mg/2 Ml Vial) 4 mg IVP Q6HR PRN PRN Reason: Nausea / Vomiting Last Admin: 05/14/24 05:50 Dose: 4 mg Pantoprazole Sodium (Pantoprazole 40 Mg Vial) 40 mg IV DAILY [facility] Last Admin: 05/14/24 08:33 Dose: 40 mg Prochlorperazine Edisylate (Prochlorperazine 10 Mg/2 Ml Vial) 10 mg IVP Q6HR PRN PRN Reason: Nausea / Vomiting Last Admin: 05/14/24 06:47 Dose: 10 mg Quetiapine Fumarate (Quetiapine 25 Mg Tablet) 25 mg PO QPM [facility] Objective - Vital Signs/Intake & Output Vital Signs: Vital Signs x48h Temp Pulse Pulse Resp BP BP Pulse Ox 05/14/24 08:00 36.5 C 87 20 192/97 H 90 L 05/14/24 05:39 36.8 C 90 20 199/103 H 93 05/14/24 05:00 75 18 181/93 H 95 05/14/24 03:00 70 18 174/95 H 99 O2 Flow Rate 05/14/24 08:00 2 05/14/24 05:39 2 05/14/24 05:00 2 05/14/24 03:00 Intake & Output: Intake & Output 05/11/24 05/12/24 05/13/24 05/14/24 23:59 23:59 23:59 23:59 Intake Total 1300 Balance 1300 - Objective General Appearance: positive: No acute distress, Lethargic Eyes Bilateral: positive: Normal inspection ENT: positive: ENT inspection nml Neck: positive: Nml inspection Respiratory: positive: Chest non-tender, No respiratory distress, Breath sounds nml Cardiovascular: positive: Regular rate & rhythm Abdomen: positive: Non-tender (not tender this AM after pain medication), Nml bowel sounds, No distention, Other (obese.) Skin: positive: Color nml Extremities: positive: Non-tender Neurologic/Psychiatric: positive: Oriented x3, Motor nml, Depressed mood/affect (poor eye contact. does not want to communicate with me.) - Lab Results Fish Bones: 05/13/24 21:51 05/14/24 05:33 Other Labs: Lab Results x24hrs 05/14/24 05/14/24 05/13/24 Range/Units 07:36 05:33 21:51 WBC (4.8-10.8) x10^3/uL RBC (4.20-5.40) 10^6/uL Hgb (12.0-16.0) g/dL Hct (37.0-47.0) % MCV (81.0-99.0) fL MCH (27.0-31.0) pg MCHC (32.0-36.0) g/dL RDW (12.0-15.0) % Plt Count (130-450) 10^3/uL MPV (7.9-10.8) fL Neut # (Auto) (1.5-6.6) 10^3/uL Lymph # (Auto) (1.5-3.5) 10^3/uL Mitchell # (Auto) (0.0-1.0) 10^3/uL Eos # (Auto) (0.0-0.7) 10^3/uL Baso # (Auto) (0.0-0.1) 10^3/uL Absolute Nucleated RBC x10^3/uL Nucleated RBC % /100WBC VBG pH 7.371 (7.31-7.41) VBG pCO2 52.6 H (41-51) mmHg VBG pO2 41.4 (25-47) mmHg VBG HCO3 29.8 H (23-28) mmol/L VBG Total CO2 31.4 H (24-29) mmol/L VBG O2 Saturation 77.7 (60-80) % VBG Base Excess 3.4 H (-2 - +2) mmol/L Sodium 132 L (135-145) mmol/L Potassium 3.3 L (3.5-4.5) mmol/L Chloride 91 L (101-111) mmol/L Carbon Dioxide 32 (21-32) mmol/L Anion Gap 9.0 (6-13) BUN 12 (6-20) mg/dL Creatinine 0.7 (0.6-1.3) mg/dL Estimated GFR (MDRD) 81 L (>89) Glucose 318 H (74-104) mg/dL POC Whole Bld Glucose 290 H (70 - 100) mg/dL Calcium 9.6 (8.5-10.3) mg/dL Magnesium 1.4 L (1.7-2.3) mg/dL Total Bilirubin (0.2-1.0) mg/dL AST (10-42) IU/L ALT (10-60) IU/L Alkaline Phosphatase (42-121) IU/L Total Protein (6.4-8.9) g/dL Albumin (3.2-5.5) g/dL Globulin (2.1-4.2) g/dL Albumin/Globulin Ratio (1.0-2.2) Lipase (11-82) U/L Urine Color Urine Clarity (CLEAR) Urine pH (5.0-7.5) PH Ur Specific [place] (1.002-1.030) Urine Protein (NEGATIVE) mg/dL Urine Glucose (UA) (NEGATIVE) mg/dL Urine Ketones (NEGATIVE) mg/dL Urine Occult Blood (NEGATIVE) Urine Nitrite (NEGATIVE) Urine Bilirubin (NEGATIVE) Urine Urobilinogen (NORMAL) E.U./dL Ur Leukocyte Esterase (NEGATIVE) Ur Microscopic Review Urine Culture Comments Serum Ketones (NEGATIVE) 05/13/24 05/13/24 05/13/24 Range/Units 21:51 21:51 21:20 WBC 8.9 (4.8-10.8) x10^3/uL RBC 4.33 (4.20-5.40) 10^6/uL Hgb 12.8 (12.0-16.0) g/dL Hct 40.0 (37.0-47.0) % MCV 92.4 (81.0-99.0) fL MCH 29.6 (27.0-31.0) pg MCHC 32.0 (32.0-36.0) g/dL RDW 13.2 (12.0-15.0) % Plt Count 272 (130-450) 10^3/uL MPV 10.4 (7.9-10.8) fL Neut # (Auto) 7.8 H (1.5-6.6) 10^3/uL Lymph # (Auto) 0.6 L (1.5-3.5) 10^3/uL Mitchell # (Auto) 0.4 (0.0-1.0) 10^3/uL Eos # (Auto) 0.0 (0.0-0.7) 10^3/uL Baso # (Auto) 0.0 (0.0-0.1) 10^3/uL Absolute Nucleated RBC 0.00 x10^3/uL Nucleated RBC % 0.0 /100WBC VBG pH (7.31-7.41) VBG pCO2 (41-51) mmHg VBG pO2 (25-47) mmHg VBG HCO3 (23-28) mmol/L VBG Total CO2 (24-29) mmol/L VBG O2 Saturation (60-80) % VBG Base Excess (-2 - +2) mmol/L Sodium 132 L (135-145) mmol/L Potassium 3.1 L (3.5-4.5) mmol/L Chloride 92 L (101-111) mmol/L Carbon Dioxide 32 (21-32) mmol/L Anion Gap 8.0 (6-13) BUN 14 (6-20) mg/dL Creatinine 0.7 (0.6-1.3) mg/dL Estimated GFR (MDRD) 81 L (>89) Glucose 326 H (74-104) mg/dL POC Whole Bld Glucose (70 - 100) mg/dL Calcium 9.8 (8.5-10.3) mg/dL Magnesium (1.7-2.3) mg/dL Total Bilirubin 0.6 (0.2-1.0) mg/dL AST 10 (10-42) IU/L ALT 13 (10-60) IU/L Alkaline Phosphatase 67 (42-121) IU/L Total Protein 7.3 (6.4-8.9) g/dL Albumin 4.1 (3.2-5.5) g/dL Globulin 3.2 (2.1-4.2) g/dL Albumin/Globulin Ratio 1.3 (1.0-2.2) Lipase 21 (11-82) U/L Urine Color YELLOW Urine Clarity CLEAR (CLEAR) Urine pH 7.5 (5.0-7.5) PH Ur Specific [place] 1.020 (1.002-1.030) Urine Protein TRACE (NEGATIVE) mg/dL Urine Glucose (UA) >=1000 H (NEGATIVE) mg/dL Urine Ketones 15 H (NEGATIVE) mg/dL Urine Occult Blood NEGATIVE (NEGATIVE) Urine Nitrite NEGATIVE (NEGATIVE) Urine Bilirubin NEGATIVE (NEGATIVE) Urine Urobilinogen 0.2 (NORMAL) (NORMAL) E.U./dL Ur Leukocyte Esterase NEGATIVE (NEGATIVE) Ur Microscopic Review NOT INDICATED Urine Culture Comments NOT INDICATED Serum Ketones SMALL H (NEGATIVE) - Diagnostic Imaging Diagnostic Imaging Results: positive: Final report reviewed Diagnostic Imaging Comments: CT A/P: Moderate hiatal hernia. diverticulosis without diverticulitis. otherwise negative. Assessment/Plan - Problem List (1) Abdominal pain Impression: Review of records indicates a long history of recurrent abdominal pain with nausea and vomiting. My differential diagnosis for this abdominal pain is gastroparesis versus hiatal hernia versus previously undetected biliary colic. I think gastroparesis or discomfort related to the hiatal hernia are more likely. Review of her CMP shows no alterations in her AST ALT alk phos or bilirubin that would indicate biliary colic. Reviewed records of EGD in July 2017 with findings of a large hiatal hernia and esophagitis. She states that the pain in the left upper quadrant is new over the last 4 days. Her pain has been relieved this morning with Dilaudid and Compazine, however she is too somnolent to engage with me to discuss what we might do about this pain. I am maintaining her PPI therapy. Review of records also indicates a long history of uncontrolled diabetes with most recent hemoglobin A1c in March of this year at 12%. When I ask her about her uncontrolled diabetes she states she is working with her doctor on this. I am somewhat suspicious that her abdominal pain with nausea and vomiting is caused by diabetic gastroparesis. When I share this thought with her she closes her eyes and turns away from me. For the time being I am discontinuing sedating medications, and will reinterview the patient later this afternoon to further discuss what might be happening with this pain, nausea and vomiting. I will start her on reglan. Social work to engage with the patient to ensure that she is safe and hopefully to determine if her delusions are causing threats to her personal safety. (2) Altered mental status Impression: This morning is oriented to person place and time. Does not want to discuss delusions that she voiced last night. States it has to do with her neighborhood in her situation and she wants time to collect her thoughts. At this time patient refuses to engage in advance care planning discussion. She states that she does not have problems like that. She has been sleeping the rest of the day, after speaking with social work . She is much more engaged and talkative this afternoon with social work and the hope would be that we can have a more productive conversation in the AM regarding her needs for care, and her care goals. (3) DM2 (diabetes mellitus, type 2) Impression: She has better been prescribed insulin. There is not a record of insulin fills when pharmacist here was able to review insurance records. It is unlikely that she is taking insulin. At the time of her last hospitalization recommendation was made to discontinue metformin as this can cause GI side effects. I think this is quite reasonable. Her blood sugars here have been elevated to 290 on bedside checks. She is currently on sliding scale insulin. I have added HS glargine to her regimen here. Unfortunately she seems unwilling or unable to control her diabetes in the outpatient environment. Qualifiers: Diabetes mellitus technician terminal and repeater insulin use: without technician terminal and repeater use Diabetes mellitus complication status: with other specified complication Qualified Code(s): E11.69 - Type 2 diabetes mellitus with other specified complication (4) Hypokalemia Impression: Potassium was 3.1 on admission. Repleted overnight repeat potassium 3.3 this morning. I have ordered an additional 10mEq repletion IV today. Probably also related to her hyperglycemia. Will continue to work to correct her hyperglycemia as well.Repeat BMP for a.m. (5) Hyponatremia Impression: Mild hyponatremia to 132. Should correct as other electrolyte abnormalities resolved. I have ordered repeat BMP for a.m. (6) Hypothyroidism Impression: In the setting of medical noncompliance. TSH at the time of her last hospitalization was 7.14. This was about 5 weeks ago. We have resumed her Synthroid here and I will repeat TSH. This is ordered with a.m. labs. Qualifiers: Hypothyroidism type: acquired Qualified Code(s): E03.9 - Hypothyroidism, unspecified (7) Hiatal hernia Impression: Nausea and vomiting could be related to this. She is on omeprazole 20 mg twice daily as outpatient if she is taking her medication. Again, insurance records would indicate that she is not filling her medications. Pantoprazole is ordered here
[2024-05-14] MEDS ORDERED: METOCLOPRAMIDE 10 MG/2 ML VIAL IVP PRN (10:59)
[2024-05-14 12:28] LABS: ESTIMATED AVERAGE GLUCOSE 283 mg/dL (70-100); HEMOGLOBIN A1c% 11.5 % (4.27-6.07)
--- NOTE | 2024-05-14 12:51 | PHARMACY PROGRESS NOTE ---
- Best Possible Medication History Admit Date and Time: 05/14/24 0418 Processed by: Pharmacy Medications reviewed in ED?: Yes (BY ED RN) Medication History completed: In progress Patient Interview: Pt unable to participate (PT TOO SICK/NAUSEOUS TO INTERVIEW) Secondary Source(s): Pharmacy records (FAXED BOTH [facility] AND [facility] - ONLY RECEIVED RETURN FAX FROM [facility] SO FAR), Insurance records No insulin or other diabetes supplies have been filled by [facility]. Waiting on fax from [facility] where discharge prescriptions were sent after last admission in March. Patient unable to participate in interview due to nausea/vomiting today. As the person ultimately responsible for medication therapy, providers are able to order a medication from an existing home medication list in [facility] via the "Reconcile Routine" prior to Confirmation of that medication by lead performance support analyst. Such practice is discouraged except when the physician, in their clinical judgment, deems that a medical need exists for a medication without regard to previous use.
[2024-05-14] MEDS ORDERED: QUEtiapine 25 MG TABLET PO SCH (21:00)
[2024-05-14] MEDS: QUEtiapine 25 MG TABLET PO SCH (21:44)
[2024-05-14] MEDS: INSULIN GLARGINE-YFGN 300 UNIT/3 ML PEN SUBQ SCH (21:50)
[2024-05-15] MEDS: ACETAMINOPHEN 325 MG TABLET PO PRN (02:50)
[2024-05-15] MEDS: traMADol 50 MG TABLET PO PRN ×2 (03:50→21:43)
[2024-05-15 05:33] LABS: BASOPHILS % (AUTO) 0.5 %; EOSINOPHILS # (AUTO) 0.2 10^3/uL (0.0-0.7); EOSINOPHILS % (AUTO) 2.1 %; HCT - HEMATOCRIT 38.2 % (37.0-47.0); HGB - HEMOGLOBIN 11.9 g/dL (12.0-16.0); LYMPHOCYTES # (AUTO) 1.7 10^3/uL (1.5-3.5); LYMPHOCYTES % (AUTO) 22.8 %; MEAN CORPUSCULAR HEMOGLOBIN 29.2 pg (27.0-31.0); MEAN CORPUSCULAR HGB CONC 31.2 g/dL (32.0-36.0); MEAN CORPUSCULAR VOLUME 93.6 fL (81.0-99.0); MEAN PLATELET VOLUME 10.9 fL (7.9-10.8); MONOCYTES # (AUTO) 0.5 10^3/uL (0.0-1.0); MONOCYTES % (AUTO) 7.1 %; NEUTROPHILS # (AUTO) 5.1 10^3/uL (1.5-6.6); NEUTROPHILS % (AUTO) 67.2 %; PLT - PLATELET COUNT 273 10^3/uL (130-450); RED BLOOD COUNT 4.08 10^6/uL (4.20-5.40); RED CELL DISTRIBUTION WIDTH 13.6 % (12.0-15.0); WHITE BLOOD COUNT 7.5 x10^3/uL (4.8-10.8)
[2024-05-15 05:51] LABS: CALCIUM 9.2 mg/dL (8.5-10.3); CREATININE 1.7 mg/dL (0.6-1.3); POTASSIUM 3.5 mmol/L (3.5-4.5)
[2024-05-15 06:03] LABS: THYROID STIMULATING HORMONE 8.26 uIU/mL (0.34-5.60)
[2024-05-15 07:44] LABS: CALCIUM 9.3 mg/dL (8.5-10.3); CREATININE 1.6 mg/dL (0.6-1.3); POTASSIUM 3.4 mmol/L (3.5-4.5)
[2024-05-15] MEDS: OLANZapine ODT 5 MG TABLET TL SCH (08:58)
[2024-05-15] MEDS: LACTATED RINGERS 500 ML IV ONE (09:14)
--- NOTE | 2024-05-15 09:19 | PROVIDER PROGRESS NOTE ---
Subjective - Prog Note Date Prog Note Date: 05/15/24 Prog Note Time: 08:52 - Subjective Pt reports feeling: Improved Subjective: She feels much better today. has no complaints, and wants to go home. no abdominal pain, no n/v. Has been tolerating 100% of her meals She does not mention her delusions that have been quite prominent in the evenings and at night. Has a very open and friendly mood this AM and this afternoon. She has been urinating regularly. no dysuria. UA was negative (except ketones and glucose) on admit. She does have some back pain. Tramadol helpful for that overnight. RN from nights tells me that delusional and paranoid behaviours have been common and prominent overnight. does not trust healthcare workers, thinks that we are all in collusion to cause her harm. She has shared a probable chain letter with RN that talks about being a "targeted individual". She believes that she is a targeted individual. Current Medications - Current Medications Current Medications: Medications Acetaminophen (Acetaminophen 325 Mg Tablet) 650 mg PO Q4HR PRN PRN Reason: Pain 1 to 4, or Fever Last Admin: 05/15/24 02:50 Dose: 650 mg Amlodipine Besylate (Amlodipine 5 Mg Tablet) 5 mg PO DAILY [facility] Last Admin: 05/15/24 08:58 Dose: 5 mg Enoxaparin Sodium (Enoxaparin 40 Mg/0.4 Ml Syringe) 40 mg SUBQ DAILY [facility] Last Admin: 05/15/24 08:58 Dose: 40 mg Insulin Glargine-yfgn (Insulin Glargine-Yfgn 300 Unit/3 Ml Pen) 10 unit SUBQ QPM NETTE Last Admin: 05/14/24 21:50 Dose: 10 unit Insulin Human Lispro (Insulin Lispro 300 Unit/3 Ml Pen) 2 - 10 unit SUBQ 0800,1200,1700,2100 [facility]; Protocol Last Admin: 05/15/24 08:09 Dose: 6 unit Lactated Ringer's (Lr) 1,000 mls @ 100 mls/hr IV .Q10H [facility] Stop: 05/15/24 18:59 Levothyroxine Sodium (Levothyroxine 100 Mcg Tablet) 150 mcg PO QDAC [facility] Last Admin: 05/15/24 06:21 Dose: 150 mcg Olanzapine (Olanzapine Odt 5 Mg Tablet) 5 mg TL DAILY [facility] Last Admin: 05/15/24 08:58 Dose: 5 mg Ondansetron HCl (Ondansetron 4 Mg/2 Ml Vial) 4 mg IVP Q6HR PRN PRN Reason: Nausea / Vomiting Last Admin: 05/14/24 05:50 Dose: 4 mg Pantoprazole Sodium (Pantoprazole 40 Mg Vial) 40 mg IV DAILY [facility] Last Admin: 05/15/24 08:57 Dose: 40 mg Quetiapine Fumarate (Quetiapine 25 Mg Tablet) 25 mg PO QPM [facility] Last Admin: 05/14/24 21:44 Dose: 25 mg Objective - Vital Signs/Intake & Output Vital Signs: Vital Signs x48h Temp Pulse Resp BP Pulse Ox 05/15/24 07:25 36.4 C L 63 18 124/69 93 05/15/24 03:48 36.5 C 68 118/49 L 92 Intake & Output: Intake & Output 05/12/24 05/13/24 05/14/24 05/15/24 23:59 23:59 23:59 23:59 Intake Total 2160 960 Balance 2160 960 - Objective General Appearance: positive: No acute distress Eyes Bilateral: positive: Normal inspection ENT: positive: ENT inspection nml Respiratory: positive: Chest non-tender, Breath sounds nml Cardiovascular: positive: Regular rate & rhythm Abdomen: positive: Non-tender Back: positive: Nml inspection Skin: positive: Color nml Extremities: positive: Non-tender Neurologic/Psychiatric: positive: Oriented x3, Other (alert and oriented. does not have hallucinations. voices no delusions to me. Good eye contact. interactions with me today are pleasant.) - Lab Results Fish Bones: 05/15/24 05:23 05/15/24 14:58 Other Labs: Lab Results x24hrs 05/15/24 05/15/24 05/15/24 Range/Units 07:30 07:15 05:23 WBC (4.8-10.8) x10^3/uL RBC (4.20-5.40) 10^6/uL Hgb (12.0-16.0) g/dL Hct (37.0-47.0) % MCV (81.0-99.0) fL MCH (27.0-31.0) pg MCHC (32.0-36.0) g/dL RDW (12.0-15.0) % Plt Count (130-450) 10^3/uL MPV (7.9-10.8) fL Neut # (Auto) (1.5-6.6) 10^3/uL Lymph # (Auto) (1.5-3.5) 10^3/uL [place] # (Auto) (0.0-1.0) 10^3/uL Eos # (Auto) (0.0-0.7) 10^3/uL Baso # (Auto) (0.0-0.1) 10^3/uL Absolute Nucleated RBC x10^3/uL Nucleated RBC % /100WBC Sodium 130 L 130 L (135-145) mmol/L Potassium 3.4 L 3.5 (3.5-4.5) mmol/L Chloride 91 L 90 L (101-111) mmol/L Carbon Dioxide 32 32 (21-32) mmol/L Anion Gap 7.0 8.0 (6-13) BUN 33 H 32 H (6-20) mg/dL Creatinine 1.6 H 1.7 H (0.6-1.3) mg/dL Estimated GFR (MDRD) 31 L 29 L (>89) Glucose 271 H 263 H (74-104) mg/dL POC Whole Bld Glucose 252 H (70 - 100) mg/dL Estimat Average Glucose (70-100) mg/dL Hemoglobin A1c % (4.27-6.07) % Calcium 9.3 9.2 (8.5-10.3) mg/dL TSH 8.26 H (0.34-5.60) uIU/mL 05/15/24 05/14/24 05/14/24 Range/Units 05:23 21:08 16:07 WBC 7.5 (4.8-10.8) x10^3/uL RBC 4.08 L (4.20-5.40) 10^6/uL Hgb 11.9 L (12.0-16.0) g/dL Hct 38.2 (37.0-47.0) % MCV 93.6 (81.0-99.0) fL MCH 29.2 (27.0-31.0) pg MCHC 31.2 L (32.0-36.0) g/dL RDW 13.6 (12.0-15.0) % Plt Count 273 (130-450) 10^3/uL MPV 10.9 H (7.9-10.8) fL Neut # (Auto) 5.1 (1.5-6.6) 10^3/uL Lymph # (Auto) 1.7 (1.5-3.5) 10^3/uL [place] # (Auto) 0.5 (0.0-1.0) 10^3/uL Eos # (Auto) 0.2 (0.0-0.7) 10^3/uL Baso # (Auto) 0.0 (0.0-0.1) 10^3/uL Absolute Nucleated RBC 0.00 x10^3/uL Nucleated RBC % 0.0 /100WBC Sodium (135-145) mmol/L Potassium (3.5-4.5) mmol/L Chloride (101-111) mmol/L Carbon Dioxide (21-32) mmol/L Anion Gap (6-13) BUN (6-20) mg/dL Creatinine (0.6-1.3) mg/dL Estimated GFR (MDRD) (>89) Glucose (74-104) mg/dL POC Whole Bld Glucose 243 H 246 H (70 - 100) mg/dL Estimat Average Glucose (70-100) mg/dL Hemoglobin A1c % (4.27-6.07) % Calcium (8.5-10.3) mg/dL TSH (0.34-5.60) uIU/mL 05/14/24 05/14/24 Range/Units 11:40 05:33 WBC (4.8-10.8) x10^3/uL RBC (4.20-5.40) 10^6/uL Hgb (12.0-16.0) g/dL Hct (37.0-47.0) % MCV (81.0-99.0) fL MCH (27.0-31.0) pg MCHC (32.0-36.0) g/dL RDW (12.0-15.0) % Plt Count (130-450) 10^3/uL MPV (7.9-10.8) fL Neut # (Auto) (1.5-6.6) 10^3/uL Lymph # (Auto) (1.5-3.5) 10^3/uL [place] # (Auto) (0.0-1.0) 10^3/uL Eos # (Auto) (0.0-0.7) 10^3/uL Baso # (Auto) (0.0-0.1) 10^3/uL Absolute Nucleated RBC x10^3/uL Nucleated RBC % /100WBC Sodium (135-145) mmol/L Potassium (3.5-4.5) mmol/L Chloride (101-111) mmol/L Carbon Dioxide (21-32) mmol/L Anion Gap (6-13) BUN (6-20) mg/dL Creatinine (0.6-1.3) mg/dL Estimated GFR (MDRD) (>89) Glucose (74-104) mg/dL POC Whole Bld Glucose 285 H (70 - 100) mg/dL Estimat Average Glucose 283 H (70-100) mg/dL Hemoglobin A1c % 11.5 H (4.27-6.07) % Calcium (8.5-10.3) mg/dL TSH (0.34-5.60) uIU/mL Assessment/Plan - Problem List (1) Abdominal pain Impression: Review of records indicates a long history of recurrent abdominal pain with nausea and vomiting. My differential diagnosis for this abdominal pain is gastroparesis versus hiatal hernia versus previously undetected biliary colic. I think gastroparesis or discomfort related to the hiatal hernia are more likely. Review of her CMP shows no alterations in her AST ALT alk phos or bilirubin that would indicate biliary colic. Reviewed records of EGD in July 2017 with findings of a large hiatal hernia and esophagitis. Her abdominal pain is resolved. she has some back pain today, which she states is how her abdominal pain started. Tramadol was helpful for this overnight. She would like a repeat dose of this, but feels like she could leave the hospital, as long as her renal function is adequate. Review of records also indicates a long history of uncontrolled diabetes with most recent hemoglobin A1c in March of this year at 12%. I am somewhat suspicious that her abdominal pain with nausea and vomiting is caused by diabetic gastroparesis, still. Would recommend outpatient workup of this. I have reached out to Dr Tillman's office for last clinic note. Patient was last seen on 04/13. I will review this note, and I am hopeful that she can been seen in followup in coming weeks. Her back pain and nausea worsened this afternoon and she reported that the tramadol and zofran were not effective. I have added compazine for nausea. (2) Altered mental status Impression: seems to be at night. She is disturbed by delusions. I have started olanzapine to hopefully quiet these delusions. She is feeling well today, sleeping on and off between care but awakens easily and is pleasant. Prefers to go home this afternoon, if labs are improved. She will go via taxi. Social work has seen the patient. SNF has been recommended in the past, and patient has refused. She has been here one midnight thus far, and should be medically stable for discharge by tomorrow, I hope. (3) Acute renal injury Impression: This is a new finding. Creatinine from 0.7 to 1.6, BUN 12 to 32 and eGFR 81 to 29. She has been eating and drinking well. no nephrotoxic medications. I have repeated labs as this was such an abrupt change from 24 hours ago, and the values are true. I have given the patient a 500cc bolus of LR followed by 100mg an hour for one liter of LR . I am rechecking labs again this afternoon. On recheck of labs, there is improvement with hydration. She continues to urinate, although I do not have measurements of quantity of urine. Her Cr improved to 1.3, K is low at 3.1 (repleted this afternoon). Mag is normal at 1.7 recheck labs in the AM This is what is preventing her from leaving the hospital. (4) DM2 (diabetes mellitus, type 2) Impression: She has been prescribed insulin. There is not a record of insulin fills when pharmacist here was able to review insurance records. It is unlikely that she is taking insulin. At the time of her last hospitalization recommendation was made to discontinue metformin as this can cause GI side effects. I think this is quite reasonable. Her blood sugars here have been elevated in the 200's on bedside checks. She is currently on sliding scale insulin. I will increase her glargine to 20u at HS, and she has been increased to moderate dosing on SSI. Qualifiers: Diabetes mellitus penitentiary insulin use: without fbi field agent use Diabetes mellitus complication status: with other specified complication Qualified Code(s): E11.69 - Type 2 diabetes mellitus with other specified complication (5) Hypokalemia Impression: slightly low this AM at 3.4. improved from 3.1 at admit. Back down this PM- see discussion in [place] (6) Hyponatremia Impression: 130 today. I have given her IVF today containing sodium in an effort to correct her [place] (7) Hypothyroidism Impression: TSH 8.26. I have restarted her home dose synthroid. I am suspicious that she is not taking her meds at home. Qualifiers: Hypothyroidism type: acquired Qualified Code(s): E03.9 - Hypothyroidism, unspecified (8) Hiatal hernia Impression: Nausea and vomiting could be related to this. She is on omeprazole 20 mg twice daily as outpatient if she is taking her medication. Again, insurance records would indicate that she is not filling her medications. Pantoprazole is ordered here
[2024-05-15] MEDS: LACTATED RINGERS 1,000 ML IV SCH (10:03)
[2024-05-15] MEDS: SODIUM CHLORIDE FLUSH 0.9% 10 ML SYRINGE IVP PRN (14:16)
[2024-05-15 15:23] LABS: CALCIUM 9.5 mg/dL (8.5-10.3); CREATININE 1.3 mg/dL (0.6-1.3); MAGNESIUM 1.8 mg/dL (1.7-2.3); POTASSIUM 3.1 mmol/L (3.5-4.5)
[2024-05-15] MEDS: DOCUSATE SODIUM 250 MG CAPSULE PO SCH (16:28)
[2024-05-15] MEDS: SENNA 8.6 MG TABLET PO SCH (16:28)
[2024-05-15] MEDS: POTASSIUM CHLOR 10 MEQ/100 ML 10 MEQ/100 ML BAG IV ONE (16:33)
[2024-05-15] MEDS: INSULIN LISPRO 300 UNIT/3 ML PEN SUBQ SCH (16:48)
[2024-05-15] MEDS: HYDROmorphone 0.5 MG/0.5 ML SYRINGE IVP PRN (17:54)
[2024-05-15] MEDS: polyethylene glycoL 3350 17 GM PACKET PO SCH (19:37)
[2024-05-15] MEDS: INSULIN GLARGINE-YFGN 300 UNIT/3 ML PEN SUBQ SCH (20:44)
[2024-05-15] MEDS: PROCHLORPERAZINE 10 MG/2 ML VIAL IVP PRN (21:43)
[2024-05-15] MEDS: hydrALAZINE INJ 20 MG/ML VIAL IVP PRN (23:52)
[2024-05-16 06:14] LABS: BASOPHILS % (AUTO) 0.2 %; EOSINOPHILS # (AUTO) 0.1 10^3/uL (0.0-0.7); EOSINOPHILS % (AUTO) 0.6 %; HCT - HEMATOCRIT 43.9 % (37.0-47.0); HGB - HEMOGLOBIN 13.2 g/dL (12.0-16.0); LYMPHOCYTES # (AUTO) 1.1 10^3/uL (1.5-3.5); LYMPHOCYTES % (AUTO) 13.7 %; MEAN CORPUSCULAR HEMOGLOBIN 29.4 pg (27.0-31.0); MEAN CORPUSCULAR HGB CONC 30.1 g/dL (32.0-36.0); MEAN CORPUSCULAR VOLUME 97.8 fL (81.0-99.0); MEAN PLATELET VOLUME 11.1 fL (7.9-10.8); MONOCYTES # (AUTO) 0.7 10^3/uL (0.0-1.0); MONOCYTES % (AUTO) 8.5 %; NEUTROPHILS # (AUTO) 6.2 10^3/uL (1.5-6.6); NEUTROPHILS % (AUTO) 76.6 %; PLT - PLATELET COUNT 258 10^3/uL (130-450); RED BLOOD COUNT 4.49 10^6/uL (4.20-5.40); RED CELL DISTRIBUTION WIDTH 13.3 % (12.0-15.0)
[2024-05-16 06:21] LABS: CALCIUM 9.3 mg/dL (8.5-10.3); CREATININE 0.8 mg/dL (0.6-1.3); POTASSIUM 3.8 mmol/L (3.5-4.5)
--- NOTE | 2024-05-16 07:32 | PROVIDER PROGRESS NOTE ---
Subjective - Prog Note Date Prog Note Date: 05/16/24 Prog Note Time: 07:30 Current Medications - Current Medications Current Medications: Medications Amlodipine Besylate (Amlodipine 5 Mg Tablet) 5 mg PO DAILY [facility] Last Admin: 05/15/24 08:58 Dose: 5 mg Polyethylene Glycol (Polyethylene Glycol 3350 17 Gm Packet) 17 gm PO DAILY [facility] Last Admin: 05/15/24 19:37 Dose: 17 gm Prochlorperazine Edisylate (Prochlorperazine 10 Mg/2 Ml Vial) 10 mg IVP Q6HR PRN PRN Reason: Nausea / Vomiting Last Admin: 05/15/24 21:43 Dose: 10 mg Quetiapine Fumarate (Quetiapine 25 Mg Tablet) 25 mg PO QPM [facility] Last Admin: 05/15/24 20:46 Dose: 25 mg Acetaminophen (Acetaminophen 325 Mg Tablet) 650 mg PO Q4HR PRN PRN Reason: Pain 1 to 4, or Fever Last Admin: 05/15/24 02:50 Dose: 650 mg Docusate Sodium (Docusate Sodium 250 Mg Capsule) 250 mg PO DAILY [facility] Last Admin: 05/15/24 16:28 Dose: 250 mg Enoxaparin Sodium (Enoxaparin 40 Mg/0.4 Ml Syringe) 40 mg SUBQ DAILY [facility] Last Admin: 05/15/24 08:58 Dose: 40 mg Hydralazine HCl (Hydralazine Inj 20 Mg/Ml Vial) 10 mg IVP Q6H PRN PRN Reason: Hypertensive Emergency Last Admin: 05/15/24 23:52 Dose: 10 mg Hydromorphone HCl (Hydromorphone 0.5 Mg/0.5 Ml Syringe) 0.5 mg IVP Q4H PRN PRN Reason: Severe Pain (Level 7-10) Last Admin: 05/15/24 23:48 Dose: 0.5 mg Insulin Glargine-yfgn (Insulin Glargine-Yfgn 300 Unit/3 Ml Pen) 20 unit SUBQ QPM [facility] Last Admin: 05/15/24 20:44 Dose: 20 unit Insulin Human Lispro (Insulin Lispro 300 Unit/3 Ml Pen) 3 - 11 unit SUBQ 0800,1200,1700,2100 [facility]; Protocol Last Admin: 05/15/24 20:45 Dose: 7 unit Lactated Ringer's (Lr) 1,000 mls @ 100 mls/hr IV .Q10H [facility] Stop: 05/16/24 18:59 Last Admin: 05/16/24 00:18 Dose: 0 mls/hr Levothyroxine Sodium (Levothyroxine 100 Mcg Tablet) 150 mcg PO QDAC [facility] Last Admin: 05/16/24 05:13 Dose: 150 mcg Olanzapine (Olanzapine Odt 5 Mg Tablet) 5 mg TL DAILY [facility] Last Admin: 05/15/24 08:58 Dose: 5 mg Ondansetron HCl (Ondansetron 4 Mg/2 Ml Vial) 4 mg IVP Q6HR PRN PRN Reason: Nausea / Vomiting Last Admin: 05/15/24 14:16 Dose: 4 mg Pantoprazole Sodium (Pantoprazole 40 Mg Vial) 40 mg IV DAILY [facility] Last Admin: 05/15/24 08:57 Dose: 40 mg Senna (Senna 8.6 Mg Tablet) 8.6 mg PO BID [facility] Last Admin: 05/15/24 20:52 Dose: Not Given Tramadol HCl (Tramadol 50 Mg Tablet) 50 mg PO Q4HR PRN PRN Reason: Moderate Pain (Level 4-6) Stop: 05/19/24 03:21 Last Admin: 05/16/24 05:31 Dose: 50 mg Objective - Vital Signs/Intake & Output Vital Signs: Vital Signs x48h Temp Pulse Resp BP BP BP Pulse Ox 05/16/24 00:54 75 16 132/67 H 93 05/16/24 00:37 127/65 05/16/24 00:22 36.7 C 76 18 132/70 H 94 05/16/24 00:07 36.7 C 80 16 185/98 H 96 05/16/24 00:02 198/168 H 05/15/24 23:57 219/105 H 05/15/24 23:52 208/123 H Intake & Output: Intake & Output 05/13/24 05/14/24 05/15/24 05/16/24 23:59 23:59 23:59 23:59 Intake Total 2160 3140 463.333 Output Total 0 Balance 2160 3140 463.333 - Lab Results Fish Bones: 05/16/24 05:48 05/16/24 05:48 Other Labs: Lab Results x24hrs 05/16/24 05/16/24 05/15/24 Range/Units 05:48 05:48 20:21 WBC 8.0 (4.8-10.8) x10^3/uL RBC 4.49 (4.20-5.40) 10^6/uL Hgb 13.2 (12.0-16.0) g/dL Hct 43.9 (37.0-47.0) % MCV 97.8 (81.0-99.0) fL MCH 29.4 (27.0-31.0) pg MCHC 30.1 L (32.0-36.0) g/dL RDW 13.3 (12.0-15.0) % Plt Count 258 (130-450) 10^3/uL MPV 11.1 H (7.9-10.8) fL Neut # (Auto) 6.2 (1.5-6.6) 10^3/uL Lymph # (Auto) 1.1 L (1.5-3.5) 10^3/uL [place] # (Auto) 0.7 (0.0-1.0) 10^3/uL Eos # (Auto) 0.1 (0.0-0.7) 10^3/uL Baso # (Auto) 0.0 (0.0-0.1) 10^3/uL Absolute Nucleated RBC 0.00 x10^3/uL Nucleated RBC % 0.0 /100WBC Sodium 131 L (135-145) mmol/L Potassium 3.8 (3.5-4.5) mmol/L Chloride 93 L (101-111) mmol/L Carbon Dioxide 29 (21-32) mmol/L Anion Gap 9.0 (6-13) BUN 23 H (6-20) mg/dL Creatinine 0.8 (0.6-1.3) mg/dL Estimated GFR (MDRD) 69 L (>89) Glucose 244 H (74-104) mg/dL POC Whole Bld Glucose 268 H (70 - 100) mg/dL Calcium 9.3 (8.5-10.3) mg/dL Magnesium (1.7-2.3) mg/dL 05/15/24 05/15/24 05/15/24 Range/Units 16:40 14:58 11:10 WBC (4.8-10.8) x10^3/uL RBC (4.20-5.40) 10^6/uL Hgb (12.0-16.0) g/dL Hct (37.0-47.0) % MCV (81.0-99.0) fL MCH (27.0-31.0) pg MCHC (32.0-36.0) g/dL RDW (12.0-15.0) % Plt Count (130-450) 10^3/uL MPV (7.9-10.8) fL Neut # (Auto) (1.5-6.6) 10^3/uL Lymph # (Auto) (1.5-3.5) 10^3/uL [place] # (Auto) (0.0-1.0) 10^3/uL Eos # (Auto) (0.0-0.7) 10^3/uL Baso # (Auto) (0.0-0.1) 10^3/uL Absolute Nucleated RBC x10^3/uL Nucleated RBC % /100WBC Sodium 132 L (135-145) mmol/L Potassium 3.1 L (3.5-4.5) mmol/L Chloride 91 L (101-111) mmol/L Carbon Dioxide 34 H (21-32) mmol/L Anion Gap 7.0 (6-13) BUN 31 H (6-20) mg/dL Creatinine 1.3 (0.6-1.3) mg/dL Estimated GFR (MDRD) 40 L (>89) Glucose 207 H (74-104) mg/dL POC Whole Bld Glucose 277 H 273 H (70 - 100) mg/dL Calcium 9.5 (8.5-10.3) mg/dL Magnesium 1.8 (1.7-2.3) mg/dL 05/15/24 05/15/24 Range/Units 07:30 07:15 WBC (4.8-10.8) x10^3/uL RBC (4.20-5.40) 10^6/uL Hgb (12.0-16.0) g/dL Hct (37.0-47.0) % MCV (81.0-99.0) fL MCH (27.0-31.0) pg MCHC (32.0-36.0) g/dL RDW (12.0-15.0) % Plt Count (130-450) 10^3/uL MPV (7.9-10.8) fL Neut # (Auto) (1.5-6.6) 10^3/uL Lymph # (Auto) (1.5-3.5) 10^3/uL [place] # (Auto) (0.0-1.0) 10^3/uL Eos # (Auto) (0.0-0.7) 10^3/uL Baso # (Auto) (0.0-0.1) 10^3/uL Absolute Nucleated RBC x10^3/uL Nucleated RBC % /100WBC Sodium 130 L (135-145) mmol/L Potassium 3.4 L (3.5-4.5) mmol/L Chloride 91 L (101-111) mmol/L Carbon Dioxide 32 (21-32) mmol/L Anion Gap 7.0 (6-13) BUN 33 H (6-20) mg/dL Creatinine 1.6 H (0.6-1.3) mg/dL Estimated GFR (MDRD) 31 L (>89) Glucose 271 H (74-104) mg/dL POC Whole Bld Glucose 252 H (70 - 100) mg/dL Calcium 9.3 (8.5-10.3) mg/dL Magnesium (1.7-2.3) mg/dL
[2024-05-16 08:04] VITALS: BP 153/73; O2SAT 96
--- NOTE | 2024-05-16 11:57 | Discharge Plan ---
Discharge Plan Problem Reviewed?: Yes Disposition: Home Health Service Condition: Stable Prescriptions: traMADol [Ultram] 50 mg PO Q4HR PRN #30 tab PRN Reason: Moderate Pain (Level 4-6) Docusate Sodium 250Mg Capsule [Colace 250Mg Capsule] 250 mg PO DAILY #30 cap Prochlorperazine [Compazine] 5 mg PO Q6H #60 tablet Dexlansoprazole [Dexilant] 30 mg PO DAILY #30 cap Blood-Glucose Meter [Glucometer] 1 each ACHS #1 each Blood Sugar Diagnostic [Glucometer Strips] 1 each ACHS #120 strip Insulin Lispro [Humalog Kwikpen U-100] 5 unit SUBQ TIDWM #3 ml Insulin Lispro [Humalog Kwikpen U-100] 1 - 9 unit SUBQ 0800,1200,1700,2100 #3 ml amLODIPine [Norvasc] 5 mg PO DAILY #30 tab Insulin Glargine-Yfgn [Semglee] 20 unit SUBQ QPM #3 ml QUEtiapine [SEROquel] 50 mg PO QPM #30 tab Levothyroxine [Synthroid] 150 mcg PO QDAC #30 tab Levothyroxine Sodium [Synthroid] 150 mcg PO QDAC #30 tab OLANZapine ODT [Zyprexa Odt] 5 mg TL DAILY #30 tab Diet: Diabetic Activity Restrictions: No Restrictions Shower Restrictions: No Driving Restrictions: No Assistance Devices: Walker Weight Bearing: Full Weight Instruction Topics: Gastroparesis, Log Blood Sugar, Diabetes Long-Term Complications, Hyperglycemia, Diabetes Healthy Meals, Diabetes Carbs Health Concerns: you came into the hospital with a reoccurrence of your chronic nausea, vomiting and pain. you had a CT scan which did not show anything abnormal in your abdomen that was acute. you do have hiatal hernia, and we know you have had this for a long time. you were treated with medicine for pain, and nausea. you were able to eat a diabetic diet, and your pain was best controlled with tramadol. therefore, we will send you home with that. it is also OK for you to take tylenol as needed. Additionally, we will send you home with antinausea medications. you also had some confusion of your thoughts while you were here. We have tried to start you on some medicine to help with that. I think you should continue these 2 meds when you leave here: Seroquel and Olanzapine. your blood sugar has been high while you are here and I think that it is high at home. your hemoglobin A1C, a measure of blood sugar over the last several months is 11.5%. It would be best for this number to be less than 7%. you need to see Dr Tillman about your diabetes- I know that your blood sugar is something that you two have been working on. I have sent prescriptions to the pharmacy for a glucometer, as well as for insulin for your diabetes. Take you blood sugar before you eat, and use insulin according to the prescriptions you have been given. not controlling your blood sugar can result in problems like neuropathy (numbness and tingling in your feet) as well as problems with the nerves in your gastrointestinal tract. I am concerned that this may be the problem with the nausea and vomiting that you have. your kidney function declined for a day while you were here. We were able to correct that with IV fluids, but I want you to make sure you are drinking plenty of water when you are at home, and eating a healthy diet. Diabetes can also do things to harm your kidneys, and controlling your blood sugar can help prevent these problems. I think that allowing home health to come visit you in your home might be helpful to you. you can get help with your blood sugars, and making sure you are taking meds correctly and there will be physical therapist that can help you with movement. Plan of Treatment: nausea medication pain medication medication to help control your blood sugars. Care Goals: control of diabetes relief of nausea and back pain Follow-Up Care: Home Health - RN, Home Health - PT, Home Health - OT No Smoking: If you smoke, Please STOP! Call for help. Follow-up with: Elsa Tillman MD [Primary Care Provider] -
--- NOTE | 2024-05-16 14:09 | DISCHARGE SUMMARY ---
Discharge Summary Admit Date: 05/14/24 Discharge Date: 05/16/24 Discharging Provider: Denice Ayoub PA-C Primary Care Provider: Elsa Tillman Code Status: Attempt Resuscitation Condition at Discharge: Stable Discharge Disposition: Home Health Service - DIAGNOSES Admission Diagnoses: Hypertensive emergency Metabolic encephalopathy, delusions Abdominal pain, nausea and vomiting DM2 with hyperglycemia Hypokalemia Hypothyroidism Discharge Diagnoses with Status of Each Condition: Abdominal pain Impression: Review of records indicates a long history of recurrent abdominal pain with nausea and vomiting. Reviewed records of EGD in July 2017 with findings of a large hiatal hernia and esophagitis. Review of records also indicates a long history of uncontrolled diabetes with hemoglobin A1c in March of this year at 12%, recheck here is 11.5%. I am somewhat suspicious that her abdominal pain with nausea and vomiting is caused by diabetic gastroparesis, still. Would recommend outpatient workup of this. I have reached out to Dr Tillman's office for last clinic note. Patient was last seen on 04/13. I have not received the note at the time of discharge. She also has occasional back pain associated with this pain. Tramadol and antinausea medications were effective in controlling symptoms (2) Altered mental status Impression: seems to be at night. She is disturbed by delusions. I have started olanzapine to hopefully quiet these delusions. She is feeling well today, sleeping on and off between care but awakens easily and is pleasant. Social work has seen the patient. SNF has been recommended in the past, and patient has refused. She consents to home health at the time of discharge, and referral has been made for RN, PT, OT, aide and social work. (3) Acute renal injury Impression: This is a new finding on HD #2. Creatinine from 0.7 to 1.6, BUN 12 to 32 and eGFR 81 to 29. She has been eating and drinking well. no nephrotoxic medications. She was hydrated and by 24 hours later, Cr = 0.8, BUN 23, eGFR 63. BASSAM resolved (4) DM2 (diabetes mellitus, type 2) Impression: She has been prescribed insulin. There is not a record of insulin fills when pharmacist here was able to review insurance records. It is unlikely that she is taking insulin. At the time of her last hospitalization recommendation was made to discontinue metformin as this can cause GI side effects. I think this is quite reasonable. Her blood sugars here have been elevated in the 200's on bedside checks. I have prescribed prandial insulin along w sliding scale and basal glargine Diabetes mellitus chcf insulin use: without buttermaker use Diabetes mellitus complication status: with other specified complication Qualified Code(s): E11.69 - Type 2 diabetes mellitus with other specified complication (5) Hypokalemia Impression: improved from 3.1 at admit. resolved at dc. K is 3.8 (6) Hyponatremia Impression: 130 today. I have given her IVF today containing sodium in an effort to correct her BASSAM (7) Hypothyroidism Impression: TSH 8.26. I have restarted her home dose synthroid. I am suspicious that she is not taking her meds at home. Qualifiers: Hypothyroidism type: acquired Qualified Code(s): E03.9 - Hypothyroidism, unspecified (8) Hiatal hernia Impression: Nausea and vomiting could be related to this. She is on omeprazole 20 mg twice daily as outpatient if she is taking her medication. Again, insurance records would indicate that she is not filling her medications. Pantoprazole is ordered here - ALLERGIES Allergies/Adverse Reactions: Allergies Allergy/AdvReac Type Severity Reaction Status Date / Time amoxicillin Allergy Unknown Verified 05/13/24 20:58 haloperidol [From Haldol] Allergy Unknown Verified 05/13/24 20:58 haloperidol lactate * Allergy Unknown Verified 05/13/24 20:58 [From Haldol] lisinopril Allergy Unknown Verified 05/13/24 20:58 - MEDICATIONS Home Medications: Ambulatory Orders Medication Instructions Recorded Confirmed RX: Fluticasone Propionate 2 sprays SARMAD DAILY 03/20/24 05/14/24 Dexlansoprazole [Dexilant] 30 mg PO DAILY #30 cap 05/16/24 Prochlorperazine [Compazine] 5 mg PO Q6H #60 tablet 05/16/24 RX: Acetaminophen [Tylenol] 650 mg PO Q4HR PRN tab 05/16/24 RX: Blood Sugar Diagnostic 1 each ACHS #120 strip 05/16/24 [Glucometer Strips] RX: Blood-Glucose Meter 1 each [facility] #1 each 05/16/24 [Glucometer] RX: Docusate Sodium 250Mg Capsule 250 mg PO DAILY #30 cap 05/16/24 [Colace 250Mg Capsule] RX: Insulin Glargine-Yfgn [Semglee] 20 unit SUBQ QPM #3 ml 05/16/24 RX: Insulin Lispro [Humalog 1 - 9 unit SUBQ 05/16/24 Kwikpen U-100] 0800,1200,1700,2100 #3 ml RX: Insulin Lispro [Humalog 5 unit SUBQ TIDWM #3 ml 05/16/24 Kwikpen U-100] RX: Levothyroxine Sodium 150 mcg PO QDAC #30 tab 05/16/24 [Synthroid] RX: Levothyroxine [Synthroid] 150 mcg PO QDAC #30 tab 05/16/24 RX: OLANZapine ODT [Zyprexa Odt] 5 mg TL DAILY #30 tab 05/16/24 RX: QUEtiapine [SEROquel] 50 mg PO QPM #30 tab 05/16/24 RX: amLODIPine [Norvasc] 5 mg PO DAILY #30 tab 05/16/24 RX: traMADol [Ultram] 50 mg PO Q4HR PRN #30 tab 05/16/24 - LABS Result Diagrams: 05/16/24 05:48 05/16/24 05:48
== END 2024-05-16 18:00 | disposition home health service (06) | DRG 391 ==
LOC: EDUNIT# → ED 20:47 → MS2 05-14 04:18
PROVIDERS: ADMIT Student in an Organized Health Care Education/Training Program; ATTEND Physician Assistant Medical
DX: R10.12 Left upper quadrant pain (principal); R19.7 Diarrhea, unspecified; G93.41 Metabolic encephalopathy; I16.1 Hypertensive emergency; N17.9 Acute kidney failure, unspecified; E87.1 Hypo-osmolality and hyponatremia; R11.2 Nausea with vomiting, unspecified; E11.65 Type 2 diabetes mellitus with hyperglycemia; E87.6 Hypokalemia; E03.9 Hypothyroidism, unspecified; M54.9 Dorsalgia, unspecified; K57.30 Diverticulosis of large intestine without perforation or abscess without bleeding; R10.32 Left lower quadrant pain; R41.82 Altered mental status, unspecified; K44.9 Diaphragmatic hernia without obstruction or gangrene; G25.81 Restless legs syndrome; Z79.4 Long term (current) use of insulin; Z79.890 Hormone replacement therapy; Z79.899 Other long term (current) drug therapy
CPT/HCPCS: 36415; 74177; 80048; 80053; 81003; 82009; 82803; 83036; 83690; 83735; 84443; 85025; 96365; 96366; 96375; 97161; 97165; 97530; 99284; 99285; A9270; J1170; J1650; J1815; J2765; J7120; Q9967; 81001; 81002; 87086

== ENCOUNTER 2024-05-17 08:28 | Outpatient (CLI) | payer MEDICARE, MEDICAID | END 2024-05-17 23:59 | disposition critical access hospital (66) | LOC: EMS 08:28 | DX: R10.12 Left upper quadrant pain (principal); R10.32 Left lower quadrant pain; R11.2 Nausea with vomiting, unspecified; R10.814 Left lower quadrant abdominal tenderness; R10.812 Left upper quadrant abdominal tenderness; M54.50 Low back pain, unspecified | CPT/HCPCS: A0425; A0427 ==

== ENCOUNTER 2024-05-17 09:03 | Emergency (ER) | payer MEDICARE, MEDICAID ==
--- NOTE | 2024-05-17 09:36 | ED Physician Documentation ---
PD HPI ABD PAIN - Stated complaint Stated Complaint: L SIDE ABD/BACK PX - Chief complaint Chief Complaint: Abd Pain - History obtained from History obtained from: Patient, EMS - History of Present Illness Timing - onset: Today (Has been having abdominal cramps over the last several days while in the hospital. She states it got worse overnight.), Last night Timing - duration: Days Timing - details: Gradual onset, Waxing and waning Quality: Cramping, Aching, Pain Location: LLQ Radiation: Left flank Improved by: No: Laying still Worsened by: Moving, Palpation. No: Breathing Associated symptoms: Nausea, Vomiting. No: Diarrhea, Constipation Recently seen: Emergency Dept, Admitted (for nausea, dyspnea, headache and elevated BP> had abd cramping pain as well, with negative CT abd/pel, UA< labs. 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 : None HEENT: None Psych: Anxiety Musculoskeletal: Osteoarthritis, Chronic back pain Derm: None - Past Surgical History Past Surgical History: Yes General: Appendectomy, Bowel surgery - Present Medications Home Medications: Ambulatory Orders Medication Instructions Recorded Confirmed Fluticasone Propionate 2 sprays SARMAD DAILY 03/20/24 05/17/24 Acetaminophen [Tylenol] 650 mg PO Q4HR PRN tab 05/16/24 05/17/24 Blood-Glucose Meter [Glucometer] 1 each ACHS #1 each 05/16/24 05/17/24 Dexlansoprazole [Dexilant] 30 mg PO DAILY #30 cap 05/16/24 05/17/24 Docusate Sodium 250Mg Capsule 250 mg PO DAILY #30 cap 05/16/24 05/17/24 [Colace 250Mg Capsule] Insulin Glargine-Yfgn [Semglee] 20 unit SUBQ QPM #3 ml 05/16/24 05/17/24 Insulin Lispro [Humalog Kwikpen 1 - 9 unit SUBQ 05/16/24 05/17/24 U-100] 0800,1200,1700,2100 #3 ml Levothyroxine [Synthroid] 150 mcg PO QDAC #30 tab 05/16/24 05/17/24 OLANZapine ODT [Zyprexa Odt] 5 mg TL DAILY #30 tab 05/16/24 05/17/24 Prochlorperazine [Compazine] 5 mg PO Q6H #60 tablet 05/16/24 05/17/24 QUEtiapine [SEROquel] 50 mg PO QPM #30 tab 05/16/24 05/17/24 amLODIPine [Norvasc] 5 mg PO DAILY #30 tab 05/16/24 05/17/24 traMADol [Ultram] 50 mg PO Q4HR PRN #30 tab 05/16/24 05/17/24 Docusate Sodium 100Mg Capsule 100 mg PO DAILY #20 cap 05/17/24 [Colace 100Mg Capsule] Oxycodone HCl/Acetaminophen 1 each PO Q6H PRN #14 tablet 05/17/24 [Percocet 5-325 mg Tablet] cephALEXin [Keflex] 500 mg PO TID #15 cap 05/17/24 metroNIDAZOLE [Flagyl] 250 mg PO TID #15 tablet 05/17/24 - Allergies Allergies/Adverse Reactions: Allergies Allergy/AdvReac Type Severity Reaction Status Date / Time amoxicillin Allergy Unknown Verified 05/13/24 20:58 haloperidol [From Haldol] Allergy Unknown Verified 05/13/24 20:58 haloperidol lactate * Allergy Unknown Verified 05/13/24 20:58 [From Haldol] lisinopril Allergy Unknown Verified 05/13/24 20:58 - Social History Does the pt smoke?: No Smoking Status: Never smoker Does the pt drink ETOH?: No Does the pt have substance abuse?: No - Immunizations Immunizations are current?: Yes - POLST Patient has POLST: No POLST Status: Full Code (pt state she want full code) Results - Vitals Vitals: Vital Signs - 24 hr 05/17/24 05/17/24 05/17/24 09:12 11:16 13:00 Temperature 36.8 C Heart Rate 90 72 64 Respiratory 20 20 20 Rate Blood Pressure 176/122 H 144/67 H 112/55 L O2 Saturation 94 95 98 If not protocol 4 4 : Oxygen Flow, liters/minute 05/17/24 05/17/24 15:00 16:48 Temperature 36.4 C L Heart Rate 70 83 Respiratory 16 18 Rate Blood Pressure 123/64 147/66 H O2 Saturation 93 92 If not protocol 4 : Oxygen Flow, liters/minute Oxygen O2 Source [With Activity] Room air O2 Source Nasal cannula - Labs Labs: Laboratory Tests 05/17/24 05/17/24 05/17/24 09:15 10:56 10:56 WBC 8.3 RBC 4.51 Hgb 13.2 Hct 40.9 MCV 90.7 MCH 29.3 MCHC 32.3 RDW 13.2 Plt Count Neut # (Auto) 7.1 H Lymph # (Auto) 0.6 L [place] # (Auto) 0.5 Eos # (Auto) 0.0 Baso # (Auto) 0.0 Absolute Nucleated RBC 0.00 Nucleated RBC % 0.0 Manual Slide Review Indicated WBC Morphology NORMAL APPEARANCE Platelet Estimate NORMAL (130-450,000) Platelet Morphology PLATELET CLUMPING RBC Morph Micro Appear NORMAL APPEARANCE Sodium 132 L Potassium 3.5 Chloride 90 L Carbon Dioxide 33 H Anion Gap 9.0 BUN 14 Creatinine 0.7 Estimated GFR (MDRD) 81 L Glucose 265 H Calcium 10.0 Magnesium 1.6 L Total Bilirubin 0.6 AST 13 ALT 21 Alkaline Phosphatase 71 Total Protein 7.4 Albumin 4.3 Globulin 3.1 Albumin/Globulin Ratio 1.4 Lipase < 10 L Urine Color YELLOW Urine Clarity CLEAR Urine pH 7.5 Ur Specific [place] 1.020 Urine Protein TRACE Urine Glucose (UA) >=1000 H Urine Ketones 15 H Urine Occult Blood NEGATIVE Urine Nitrite NEGATIVE Urine Bilirubin NEGATIVE Urine Urobilinogen 0.2 (NORMAL) Ur Leukocyte Esterase NEGATIVE Ur Microscopic Review NOT INDICATED Urine Culture Comments NOT INDICATED - Rads (name of study) abd/pelvic CT Relevant Findings:: Prelim report reviewed, EMP independent interpretation of test (local area of inflammation decscenidng colon around diverticula, most c/w diverticulitis. Pt given IV abx for this to minimize nausea effects. ) PD Medical Decision Making - ED course Complexity details: reviewed old records, reviewed results, re-evaluated patient (pain improved and nausea lessened with few doses of meds for each. CT showing uncomplicated early diverticulitis, changes from prior CT 3 ays ago. Normal WBC. Talked with hospitalist but did not seem to have criteria for re-admission. ), considered differential, d/w patient ED course: The patient was recently hospitalized for hypertension associated with some confusion. She was having some crampy abdominal pain during the stay as well. No dysuria. She had a CT scan 3 days ago which did not show any obvious acute abnormality. She was discharged yesterday with improved symptoms but had worsening left abdominal pain overnight associated with nausea and vomiting. She was given some antiemetic and fluids en route by EMS. She states her pain was comparable or slightly worse to when she was in the hospital. No history of diverticulitis or colitis. She states she has had a previous bowel surgery however but was not clear why. Still has her appendix and gallbladder. She does have pain and tenderness on the left lower quadrant. No general peritoneal symptoms. Given the worsening of symptoms on her account, I did repeat the CT which is now showing a localized area of colitis around the diverticulum on the descending colon. Assumedly she was having some early diverticulitis with the inflammation earlier a few days ago or may have been unrelated and now had a subsequent triggering of diverticulitis related to diabetic gastroparesis or such. In any event she now has CT findings consistent with diverticulitis. She is having less pain and no nausea or vomiting after IV fluids and medications here. We can give a dose of IV antibiotics for her. Will attempt oral challenge to see if that she can keep things down with intention of trying to discharge home. Departure - Departure Disposition: 01 Home, Self Care Clinical Impression: Left sided abdominal pain, Acute diverticulitis, Nausea and vomiting, Diabetes Condition: Stable Record reviewed to determine appropriate education?: Yes Prescriptions: Docusate Sodium 100Mg Capsule [Colace 100Mg Capsule] 100 mg PO DAILY #20 cap metroNIDAZOLE [Flagyl] 250 mg PO TID #15 tablet cephALEXin [Keflex] 500 mg PO TID #15 cap Oxycodone HCl/Acetaminophen [Percocet 5-325 mg Tablet] 1 each PO Q6H PRN #14 tablet PRN Reason: pain Comments: Your CT scan today shows a localized area of infection in the descending colon, acute diverticulitis. This was not present on your CT scan a few days ago might have been early inflammation evolving. At this point would treat it with some antibiotics as well as nausea medicine and pain medicine and stool softener. Some nausea medicine had been prescribed for you previously and is at the pharmacy apparently. I will send the antibiotics and a stronger pain medicine for you to the same pharmacy. I did talk with the hospitalist who felt that you did not have criteria for readmission at this point. Medications as prescribed at home and return to the ER if worsening. Forms: PCP List Discharge Date/Time: 05/17/24 16:50
[2024-05-17] MEDS: SODIUM CHLORIDE 0.9% 1,000 ML IV STA (10:55)
[2024-05-17] MEDS: PROCHLORPERAZINE 10 MG/2 ML VIAL IVP STA (10:56)
[2024-05-17] MEDS: KETOROLAC 15 MG/ML VIAL IVP STA (10:59)
[2024-05-17] MEDS: HYDROmorphone 0.5 MG/0.5 ML SYRINGE IVP STA (10:59)
[2024-05-17 11:03] LABS: BILIRUBIN,URINE NEGATIVE (NEGATIVE); GLUCOSE, URINE (UA) >=1000 mg/dL (NEGATIVE); KETONES,URINE (UA) 15 mg/dL (NEGATIVE); LEUKOCYTE ESTERASE, URINE NEGATIVE (NEGATIVE); NITRITE,URINE NEGATIVE (NEGATIVE); OCCULT BLOOD,URINE NEGATIVE (NEGATIVE); PH,URINE 7.5 PH (5.0-7.5); PROTEIN,URINE TRACE mg/dL (NEGATIVE); UROBILINOGEN,URINE 0.2 (NORMAL) E.U./dL (NORMAL)
[2024-05-17 11:07] LABS: CLARITY,URINE CLEAR (CLEAR)
[2024-05-17 11:15] LABS: BASOPHILS % (AUTO) 0.5 %; EOSINOPHILS % (AUTO) 0.2 %; HCT - HEMATOCRIT 40.9 % (37.0-47.0); HGB - HEMOGLOBIN 13.2 g/dL (12.0-16.0); LYMPHOCYTES # (AUTO) 0.6 10^3/uL (1.5-3.5); LYMPHOCYTES % (AUTO) 7.2 %; MEAN CORPUSCULAR HEMOGLOBIN 29.3 pg (27.0-31.0); MEAN CORPUSCULAR HGB CONC 32.3 g/dL (32.0-36.0); MEAN CORPUSCULAR VOLUME 90.7 fL (81.0-99.0); MONOCYTES # (AUTO) 0.5 10^3/uL (0.0-1.0); MONOCYTES % (AUTO) 6.1 %; NEUTROPHILS # (AUTO) 7.1 10^3/uL (1.5-6.6); NEUTROPHILS % (AUTO) 85.3 %; RED BLOOD COUNT 4.51 10^6/uL (4.20-5.40); RED CELL DISTRIBUTION WIDTH 13.2 % (12.0-15.0); WHITE BLOOD COUNT 8.3 x10^3/uL (4.8-10.8)
[2024-05-17 11:19] LABS: ALBUMIN 4.3 g/dL (3.2-5.5); ALBUMIN/GLOBULIN RATIO 1.4 (1.0-2.2); ALKALINE PHOSPHATASE 71 IU/L (42-121); ALT ALANINE AMINOTRANSFERASE 21 IU/L (10-60); AST ASPARTATE AMINOTRANSFERASE 13 IU/L (10-42); BILIRUBIN,TOTAL 0.6 mg/dL (0.2-1.0); BUN - BLOOD UREA NITROGEN 14 mg/dL (6-20); CARBON DIOXIDE - CO2 33 mmol/L (21-32); CHLORIDE 90 mmol/L (101-111); CREATININE 0.7 mg/dL (0.6-1.3); GFR - MDRD 81 (>89); GLUCOSE 265 mg/dL (74-104); MAGNESIUM 1.6 mg/dL (1.7-2.3); POTASSIUM 3.5 mmol/L (3.5-4.5); SODIUM 132 mmol/L (135-145); TOTAL PROTEIN 7.4 g/dL (6.4-8.9)
[2024-05-17 11:21] LABS: LIPASE < 10 U/L (11-82)
[2024-05-17] MEDS ORDERED: iohexoL-300 100 ML VIAL ONE (11:26)
[2024-05-17 11:34] LABS: PLATELET ESTIMATE, MANUAL NORMAL (130-450,000) (NORMAL)
[2024-05-17 11:35] LABS: PLATELET MORPHOLOGY PLATELET CLUMPING (NORMAL); RBC MORPHOLOGY (MULTIPLE) NORMAL APPEARANCE (NORMAL); SLIDE REVIEW? Indicated; WBC MORPHOLOGY (MULTIPLE) NORMAL APPEARANCE (NORMAL)
--- NOTE | 2024-05-17 12:13 | CT Report ---
PROCEDURE: Abdomen/Pelvis W INDICATIONS: worsening left lower abd pain CONTRAST: 100ml omni 300 TECHNIQUE: After the administration of intravenous contrast, a CT scan of the abdomen and pelvis was performed. Images were recorded and evaluated at appropriate window settings. Reformats: coronal and sagittal. F or radiation dose reduction, the following was used: automated exposure control, adjustment of mA and /or kV according to patient size. COMPARISON: CT abdomen pelvis 05/13/2024. FINDINGS: Image quality: Diagnostic. Lower chest: Unremarkable. Liver: No solid mass. Liver measures 21.9 cm with steatosis. Simple hepatic cysts, unchanged. Gallbladder: Unremarkable. Biliary tree: No intrahepatic or extrahepatic dilation, accounting for age. Spleen: No splenomegaly. Pancreas: No pancreatic ductal dilation. Adrenals: No adrenal nodule. Kidneys and ureters: No hydronephrosis. No renal cystic lesion which requires follow up. No solid mas s. Stomach, bowel and peritoneum: No gastric or small bowel dilation. There is a very minimal appearance of pericolonic stranding within a focal portion of the descending colon within the left hemiabdomen. It is minimally more prominent when compared to prior exam. Minimal diverticula. Large hiatal hernia .. No pathologic free fluid. Lymph nodes: No central or retroperitoneal adenopathy. Vessels: No infrarenal aortic aneurysm. Patent portal vein. PELVIS Reproductive organs: Unremarkable. Bladder: No abnormal wall thickening, accounting for underdistention. Pelvic lymph nodes: No pelvic adenopathy by size criteria. Bones: No aggressive osseous abnormality. Other: No significant ventral or inguinal hernia. IMPRESSION: Interval development of very minimal focal area descending pericolonic stranding. Very early colitis secondary to diverticulitis cannot be definitively excluded. Reviewed by: Cehly Beckford MD on 05/17/2024 12:12 PM PDT Approved by: Chely Beckford MD on 05/17/2024 12:12 PM PDT Station ID: [id number]
[2024-05-17] MEDS: metroNIDAZOLE 500 MG/100 ML 500 MG/100 ML BAG IV ONE (13:49)
[2024-05-17] MEDS: cefTRIAXone 1 GM VIAL IVP STA (13:49)
[2024-05-17] MEDS: HYDROmorphone 1 MG/ML CARPUJECT IVP STA (14:54)
[2024-05-17 16:59] VITALS: BP 147/66; O2SAT 92
[2024-05-17] MEDS: iohexoL-300 100 ML VIAL IVP ONE (17:15)
== END 2024-05-17 16:50 | disposition home or self-care (01) ==
LOC: EDUNIT# → ED 09:03
DX: K57.92 Diverticulitis of intestine, part unspecified, without perforation or abscess without bleeding (principal); R11.2 Nausea with vomiting, unspecified; E11.9 Type 2 diabetes mellitus without complications; I10 Essential (primary) hypertension; E03.9 Hypothyroidism, unspecified; Z79.899 Other long term (current) drug therapy; Z79.4 Long term (current) use of insulin
CPT/HCPCS: 36415; 74177; 80053; 81003; 83690; 83735; 85025; 96365; 96375; 96376; 99284; 99285; J1170; Q9967; 81001; 87086

== ENCOUNTER 2024-05-31 12:54 | Outpatient (CLI) | payer MEDICARE, MEDICAID | END 2024-05-31 23:59 | disposition critical access hospital (66) | LOC: EMS 12:54 | DX: R10.12 Left upper quadrant pain (principal); R11.2 Nausea with vomiting, unspecified; E11.65 Type 2 diabetes mellitus with hyperglycemia; Z79.4 Long term (current) use of insulin; T38.3X6A Underdosing of insulin and oral hypoglycemic [antidiabetic] drugs, initial encounter | CPT/HCPCS: A0425; A0427 ==

== ENCOUNTER 2024-05-31 13:21 | Emergency (ER) | payer MEDICARE, MEDICAID ==
--- NOTE | 2024-05-31 13:32 | ED Physician Documentation ---
PD HPI ABD PAIN - Stated complaint Stated Complaint: ABD PX - History obtained from History obtained from: Patient, EMS - Additional information Additional information: This is a 78-year-old woman presents for the evaluation of abdominal pain. She says been going on for about 3 days. Interestingly she says it started immediately after she was discharged from the hospital, was discharged on the sixth of this month, 15 days ago. She says persistently though that she was discharged 3 days ago. I asked her if she was admitted somewhere else in the interim and she denies that. She was also seen on the seventh of this month with diagnosis of diverticulitis. Regardless she says that for 3 days she has had severe left-sided abdominal pain associate with vomiting and some constipation. She has a history remotely, maybe 30 years ago of bowel resection related to perforated appendicitis. She denies fevers or chills. Has received 15 mg of IV ketorolac and 4 mg of IV Zofran on arrival with insignificant improvement in her pain. PD PAST MEDICAL HISTORY - Past Medical History Cardiovascular: Hypertension Respiratory: None Neuro: None Endocrine/Autoimmune: Type 2 diabetes, HyPOthyroidism, Other GI: GERD, Hiatal hernia CT MRI TECHNOLOGIST: None : None HEENT: None Psych: Anxiety Musculoskeletal: Osteoarthritis, Chronic back pain Derm: None - Past Surgical History Past Surgical History: Yes General: Appendectomy, Bowel surgery - Present Medications Home Medications: Ambulatory Orders Medication Instructions Recorded Confirmed Fluticasone Propionate 2 sprays SARMAD DAILY 03/20/24 05/17/24 Acetaminophen [Tylenol] 650 mg PO Q4HR PRN tab 05/16/24 05/17/24 Blood-Glucose Meter [Glucometer] 1 each ACHS #1 each 05/16/24 05/17/24 Dexlansoprazole [Dexilant] 30 mg PO DAILY #30 cap 05/16/24 05/17/24 Docusate Sodium 250Mg Capsule 250 mg PO DAILY #30 cap 05/16/24 05/17/24 [Colace 250Mg Capsule] Insulin Glargine-Yfgn [Semglee] 20 unit SUBQ QPM #3 ml 05/16/24 05/17/24 Insulin Lispro [Humalog Kwikpen 1 - 9 unit SUBQ 05/16/24 05/17/24 U-100] 0800,1200,1700,2100 #3 ml Levothyroxine [Synthroid] 150 mcg PO QDAC #30 tab 05/16/24 05/17/24 OLANZapine ODT [Zyprexa Odt] 5 mg TL DAILY #30 tab 05/16/24 05/17/24 Prochlorperazine [Compazine] 5 mg PO Q6H #60 tablet 05/16/24 05/17/24 QUEtiapine [SEROquel] 50 mg PO QPM #30 tab 05/16/24 05/17/24 amLODIPine [Norvasc] 5 mg PO DAILY #30 tab 05/16/24 05/17/24 traMADol [Ultram] 50 mg PO Q4HR PRN #30 tab 05/16/24 05/17/24 Docusate Sodium 100Mg Capsule 100 mg PO DAILY #20 cap 05/17/24 [Colace 100Mg Capsule] Oxycodone HCl/Acetaminophen 1 each PO Q6H PRN #14 tablet 05/17/24 [Percocet 5-325 mg Tablet] cephALEXin [Keflex] 500 mg PO TID #15 cap 05/17/24 metroNIDAZOLE [Flagyl] 250 mg PO TID #15 tablet 05/17/24 Ciprofloxacin HCl [Cipro] 500 mg PO BID #20 tablet 05/31/24 Oxycodone HCl/Acetaminophen 1 - 2 each PO Q6H PRN #10 tablet 05/31/24 [Percocet 5-325 mg Tablet] metroNIDAZOLE [Flagyl] 500 mg PO TID #30 tablet 05/31/24 - Allergies Allergies/Adverse Reactions: Allergies Allergy/AdvReac Type Severity Reaction Status Date / Time amoxicillin Allergy Unknown Verified 05/31/24 13:35 haloperidol [From Haldol] Allergy Unknown Verified 05/31/24 13:35 haloperidol lactate * Allergy Unknown Verified 05/31/24 13:35 [From Haldol] lisinopril Allergy Unknown Verified 05/31/24 13:35 - Social History Does the pt smoke?: No Smoking Status: Never smoker Does the pt drink ETOH?: No Does the pt have substance abuse?: No - Immunizations Immunizations are current?: Yes - POLST Patient has POLST: No POLST Status: Full Code (pt state she want full code) PD ED PE NORMAL - Vitals Vital signs reviewed: Yes - General General: Alert and oriented X 3, Other (She appears uncomfortable due to abdominal pain.) - Cardiac Cardiac: RRR, No murmur - Respiratory Respiratory: No respiratory distress, Clear bilaterally - Abdomen Abdomen: Normal bowel sounds, Soft, Non tender - Back Back: No CVA TTP, No spinal TTP Results - Vitals Vitals: Vital Signs - 24 hr 05/31/24 13:31 Temperature 37 C Heart Rate 86 Respiratory 24 Rate Blood Pressure 214/153 H O2 Saturation 91 L Oxygen O2 Source [] Room air O2 Source Room air - EKG (time done) 1343 EKG releavant findings:: EKG personally interpreted by author of this note. Relevant findings are: Rate: Rate (enter#) (81) Rhythm: NSR [place]: Normal Intervals: Normal PA QRS: Normal Ischemia: Non specific changes. No: ST elevation c/w ischemia, ST depression - Labs Labs: Laboratory Tests 05/31/24 05/31/24 05/31/24 13:42 13:42 13:42 WBC 7.9 RBC 4.52 Hgb 13.2 Hct 41.5 MCV 91.8 MCH 29.2 MCHC 31.8 L RDW 13.2 Plt Count 326 MPV 10.4 Neut # (Auto) 6.6 Lymph # (Auto) 0.8 L [place] # (Auto) 0.4 Eos # (Auto) 0.0 Baso # (Auto) 0.0 Absolute Nucleated RBC 0.00 Nucleated RBC % 0.0 Sodium 131 L Potassium 3.5 Chloride 92 L Carbon Dioxide 30 Anion Gap 9.0 BUN 16 Creatinine 0.8 Estimated GFR (MDRD) 69 L Glucose 396 H Lactic Acid 0.9 Calcium 9.7 Total Bilirubin 0.6 AST 10 ALT 15 Alkaline Phosphatase 57 Total Protein 7.7 Albumin 4.3 Globulin 3.4 Albumin/Globulin Ratio 1.3 Lipase 11 Urine Color Urine Clarity Urine pH Ur Specific [place] Urine Protein Urine Glucose (UA) Urine Ketones Urine Occult Blood Urine Nitrite Urine Bilirubin Urine Urobilinogen Ur Leukocyte Esterase Ur Microscopic Review Urine Culture Comments 05/31/24 14:28 WBC RBC Hgb Hct MCV MCH MCHC RDW Plt Count MPV Neut # (Auto) Lymph # (Auto) [place] # (Auto) Eos # (Auto) Baso # (Auto) Absolute Nucleated RBC Nucleated RBC % Sodium Potassium Chloride Carbon Dioxide Anion Gap BUN Creatinine Estimated GFR (MDRD) Glucose Lactic Acid Calcium Total Bilirubin AST ALT Alkaline Phosphatase Total Protein Albumin Globulin Albumin/Globulin Ratio Lipase Urine Color YELLOW Urine Clarity CLEAR Urine pH 7.0 Ur Specific [place] 1.015 Urine Protein NEGATIVE Urine Glucose (UA) >=1000 H Urine Ketones 15 H Urine Occult Blood NEGATIVE Urine Nitrite NEGATIVE Urine Bilirubin NEGATIVE Urine Urobilinogen 0.2 (NORMAL) Ur Leukocyte Esterase NEGATIVE Ur Microscopic Review NOT INDICATED Urine Culture Comments NOT INDICATED - Rads (name of study) CT abdomen pelvis showing likely early diverticulitis and hepatomegaly and hepatic steatosis. Relevant Findings:: Final report received, EMP independent interpretation of test PD Medical Decision Making - ED course ED course: She says she was discharged the hospital 3 days ago and is persistent and saying this, but was actually about 2 weeks ago. 78-year-old woman presents with left lower quadrant pain, now can be recurrent tissue with recent diagnosis of diverticulitis. Her historical timeframe is not correct as far as when she was released from the hospital etc. Workup in the emergency department showing likely mild diverticulitis on CT. CBC unremarkable. CMP notable for hyperglycemia with pseudohyponatremia. Urinalysis with glucose but no infection. Discussed with her. She seems to have some delusions about technology and states that people are attacking her with technology. This is a fixed delusion looking at prior charts. I did discuss with her her blood sugar and she says she is having trouble calibrating her glucometer and as such is not taking her insulin. I will ask the nurse to help her with this. Discussed the need for follow-up colonoscopy as it has been 10 years. Departure - Departure Disposition: 01 Home, Self Care Clinical Impression: Acute diverticulitis, Hyperglycemia Condition: Good Record reviewed to determine appropriate education?: Yes Instructions: ED Diverticulitis, Diet Clear Liquid Dc, Diet Low Residue Prescriptions: Ciprofloxacin HCl [Cipro] 500 mg PO BID #20 tablet metroNIDAZOLE [Flagyl] 500 mg PO TID #30 tablet Oxycodone HCl/Acetaminophen [Percocet 5-325 mg Tablet] 1 - 2 each PO Q6H PRN #10 tablet PRN Reason: pain Comments: I sent your prescriptions electronically to the [facility] in [place]. You have a mild case of diverticulitis today and I we will treat that with pain medications and antibiotics. You should do a clear liquid diet for the next 24 hours, after that would recommen a low residue diet for another 24 hours. See the attached instruction sheets on same. You will need a follow-up colonoscopy since it has been 10 years, call your doctor for an appointment and to arrange a referral. Will also asked the nurse before you leave to help you with your glucometer calibration. Call your doctor to arrange a follow-up appointment, make the next available appointment. In the interim, return anytime if worse or if new symptoms develop. I am prescribing a short course of narcotic pain medication for you. These are potentially dangerous and addictive medications that should be used carefully. These medications may constipate you. Take an [id number] stool softener (docusate) twice daily with plenty of water while taking these medications. If you go 24 hours without a bowel movement, take [id number] miralax, per package instructions. Do not drink or drive while taking these medications. If you received narcotic or sedating medications while in the emergency department, do not drive for 24 hours. Store this medication in a safe, secure place and out of reach of children. It is a violation of federal law to give or sell this medication to another person or to use in a manner other than prescribed. The ED will not refill narcotic prescriptions, including prescriptions lost or stolen. To dispose of unwanted medications: 1. [facility] provides a drop box for medication in pill form only (no liquids) 8:00 am to 4:30 p.m. Saturday-Saturday in the lobby of the [facility], [address] [place] [address]. Empty pills into ziplock bag before disposal. Call [phone] for information. [email or web address] is a free service available to all [facility] residents. Go to [email or web address] Note that many narcotic pain relievers also contain Tylenol/acetaminophen. Please ensure that your total dose of acetaminophen from all sources does not exceed 3 g (3000 mg) per day. d
[2024-05-31 13:48] LABS: BASOPHILS % (AUTO) 0.4 %; EOSINOPHILS % (AUTO) 0.1 %; HCT - HEMATOCRIT 41.5 % (37.0-47.0); HGB - HEMOGLOBIN 13.2 g/dL (12.0-16.0); LYMPHOCYTES # (AUTO) 0.8 10^3/uL (1.5-3.5); LYMPHOCYTES % (AUTO) 10.1 %; MEAN CORPUSCULAR HEMOGLOBIN 29.2 pg (27.0-31.0); MEAN CORPUSCULAR HGB CONC 31.8 g/dL (32.0-36.0); MEAN CORPUSCULAR VOLUME 91.8 fL (81.0-99.0); MEAN PLATELET VOLUME 10.4 fL (7.9-10.8); MONOCYTES # (AUTO) 0.4 10^3/uL (0.0-1.0); NEUTROPHILS # (AUTO) 6.6 10^3/uL (1.5-6.6); PLT - PLATELET COUNT 326 10^3/uL (130-450); RED BLOOD COUNT 4.52 10^6/uL (4.20-5.40); RED CELL DISTRIBUTION WIDTH 13.2 % (12.0-15.0); WHITE BLOOD COUNT 7.9 x10^3/uL (4.8-10.8)
[2024-05-31] MEDS: HYDROmorphone 1 MG/ML CARPUJECT IVP STA ×2 (13:54→16:09)
[2024-05-31] MEDS: SODIUM CHLORIDE 0.9% 1,000 ML IV STA (13:54)
[2024-05-31 13:59] LABS: ALBUMIN 4.3 g/dL (3.2-5.5); ALBUMIN/GLOBULIN RATIO 1.3 (1.0-2.2); BILIRUBIN,TOTAL 0.6 mg/dL (0.2-1.0); CALCIUM 9.7 mg/dL (8.5-10.3); CREATININE 0.8 mg/dL (0.6-1.3); POTASSIUM 3.5 mmol/L (3.5-4.5); TOTAL PROTEIN 7.7 g/dL (6.4-8.9)
[2024-05-31] MEDS ORDERED: iohexoL-300 100 ML VIAL ONE (14:10)
[2024-05-31 14:33] LABS: BILIRUBIN,URINE NEGATIVE (NEGATIVE); GLUCOSE, URINE (UA) >=1000 mg/dL (NEGATIVE); KETONES,URINE (UA) 15 mg/dL (NEGATIVE); LEUKOCYTE ESTERASE, URINE NEGATIVE (NEGATIVE); NITRITE,URINE NEGATIVE (NEGATIVE); OCCULT BLOOD,URINE NEGATIVE (NEGATIVE); PROTEIN,URINE NEGATIVE (NEGATIVE); UROBILINOGEN,URINE 0.2 (NORMAL) E.U./dL (NORMAL)
[2024-05-31 14:35] LABS: CLARITY,URINE CLEAR (CLEAR)
--- NOTE | 2024-05-31 14:57 | CT Report ---
PROCEDURE: Abdomen/Pelvis W INDICATIONS: iv only, llq pain CONTRAST: 100ml omni 300 TECHNIQUE: After the administration of intravenous contrast, a CT scan of the abdomen and pelvis was performed. Images were recorded and evaluated at appropriate window settings. Reformats: coronal and sagittal. F or radiation dose reduction, the following was used: automated exposure control, adjustment of mA and /or kV according to patient size. COMPARISON: 05/17/2024, 05/13/2024. FINDINGS: Image quality: Diagnostic. Lower chest: Scattered scarring/atelectasis at bilateral lung bases are seen. Heart size is enlarged, no pericardial effusion.. Liver: No solid mass. Hepatomegaly. Stable small cyst in left hepatic lobe remains unchanged Gallbladder: No radiopaque stones or wall thickening. Biliary tree: No intrahepatic or extrahepatic dilation, accounting for age. Spleen: No splenomegaly. Pancreas: No pancreatic ductal dilation. Adrenals: No adrenal nodule. Kidneys and ureters: No hydronephrosis. No renal cystic lesion which requires follow up. No solid mas s. Stomach, bowel and peritoneum: There is no bowel obstruction. Mild sigmoid diverticulosis is again se en. Again noted is mild fat stranding adjacent to proximal sigmoid colon in left lower quadrant with wall thickening concerning for early colitis versus diverticulitis in this area series 4 image 65 and series 2 image 117. No abscess collection. No other area of abnormal bowel wall thickening. No free fluid of free air. Lymph nodes: No central or retroperitoneal adenopathy. Vessels: No infrarenal aortic aneurysm. Patent portal vein. PELVIS Reproductive organs: Unremarkable. Bladder: No abnormal wall thickening, accounting for underdistention. Pelvic lymph nodes: No pelvic adenopathy by size criteria. Bones: No aggressive osseous abnormality. Other: No significant ventral or inguinal hernia. IMPRESSION: 1. Finding is concerning for early developing diverticulitis or colitis involving proximal sigmoid co juliette in left lower quadrant. No abscess collection. No free fluid of free air. 2. Hepatomegaly and hepatic steatosis. Stable small hepatic cyst. Reviewed by: Lucius Suarez MD on 05/31/2024 2:56 PM PDT Approved by: Lucius Suarez MD on 05/31/2024 2:56 PM PDT Station ID: [id number]
[2024-05-31 15:34] VITALS: BP 175/87
[2024-05-31 16:16] VITALS: O2SAT 93
[2024-05-31] MEDS: iohexoL-300 100 ML VIAL IVP ONE (17:56)
== END 2024-05-31 16:17 | disposition home or self-care (01) ==
LOC: ED 13:21
DX: K57.92 Diverticulitis of intestine, part unspecified, without perforation or abscess without bleeding (principal); E11.65 Type 2 diabetes mellitus with hyperglycemia; T68.XXXA Hypothermia, initial encounter; I10 Essential (primary) hypertension; Z79.899 Other long term (current) drug therapy; Z79.4 Long term (current) use of insulin
CPT/HCPCS: 36415; 74177; 80053; 81003; 83605; 83690; 85025; 93005; 96374; 99284; J1170; Q9967; 81001; 87086

== ENCOUNTER 2024-08-01 09:48 | Emergency (ER) | payer MEDICARE, MEDICAID ==
--- NOTE | 2024-08-01 10:00 | ED Physician Documentation ---
PD HPI ABD PAIN - Stated complaint Stated Complaint: PERSISTENT N/V - History obtained from History obtained from: Patient - Additional information Additional information: 79-year-old woman with history of perforated appendicitis necessitating bowel surgery and diverticulitis. No colonoscopy in the last 10 years or so and understands she is due. Last 5 days she has had persistent vomiting with soft stools. She has had left lower quadrant and left-sided abdominal pain but pain is minimal at this time. No fevers. No bloody stools or bloody vomit. She does have type 2 diabetes and is taking metformin. Has taken insulin in the past, not currently. 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 : None HEENT: None Psych: Anxiety Musculoskeletal: Osteoarthritis, Chronic back pain Derm: None - Past Surgical History Past Surgical History: Yes General: Appendectomy, Bowel surgery - Present Medications Home Medications: Ambulatory Orders Medication Instructions Recorded Confirmed Fluticasone Propionate 2 sprays SARMAD DAILY 03/20/24 05/17/24 Acetaminophen [Tylenol] 650 mg PO Q4HR PRN tab 05/16/24 05/17/24 Blood-Glucose Meter [Glucometer] 1 each ACHS #1 each 05/16/24 05/17/24 Dexlansoprazole [Dexilant] 30 mg PO DAILY #30 cap 05/16/24 05/17/24 Docusate Sodium 250Mg Capsule 250 mg PO DAILY #30 cap 05/16/24 05/17/24 [Colace 250Mg Capsule] Insulin Glargine-Yfgn [Semglee] 20 unit SUBQ QPM #3 ml 05/16/24 05/17/24 Insulin Lispro [Humalog Kwikpen 1 - 9 unit SUBQ 05/16/24 05/17/24 U-100] 0800,1200,1700,2100 #3 ml Levothyroxine [Synthroid] 150 mcg PO QDAC #30 tab 05/16/24 05/17/24 OLANZapine ODT [Zyprexa Odt] 5 mg TL DAILY #30 tab 05/16/24 05/17/24 Prochlorperazine [Compazine] 5 mg PO Q6H #60 tablet 05/16/24 05/17/24 QUEtiapine [SEROquel] 50 mg PO QPM #30 tab 05/16/24 05/17/24 amLODIPine [Norvasc] 5 mg PO DAILY #30 tab 05/16/24 05/17/24 traMADol [Ultram] 50 mg PO Q4HR PRN #30 tab 05/16/24 05/17/24 Docusate Sodium 100Mg Capsule 100 mg PO DAILY #20 cap 05/17/24 [Colace 100Mg Capsule] Oxycodone HCl/Acetaminophen 1 each PO Q6H PRN #14 tablet 05/17/24 [Percocet 5-325 mg Tablet] cephALEXin [Keflex] 500 mg PO TID #15 cap 05/17/24 metroNIDAZOLE [Flagyl] 250 mg PO TID #15 tablet 05/17/24 Ciprofloxacin HCl [Cipro] 500 mg PO BID #20 tablet 05/31/24 Oxycodone HCl/Acetaminophen 1 - 2 each PO Q6H PRN #10 tablet 05/31/24 [Percocet 5-325 mg Tablet] metroNIDAZOLE [Flagyl] 500 mg PO TID #30 tablet 05/31/24 Insulin Glargine [Lantus Solostar] 20 unit SUBQ QPM #3 ea 08/01/24 Ondansetron Odt [Zofran] 4 mg TL Q6H PRN #10 tablet 08/01/24 Sucralfate [Carafate] 1 gm PO ACHS #60 tablet 08/01/24 - Allergies Allergies/Adverse Reactions: Allergies Allergy/AdvReac Type Severity Reaction Status Date / Time amoxicillin Allergy Unknown Verified 08/01/24 10:02 haloperidol [From Haldol] Allergy Unknown Verified 08/01/24 10:02 haloperidol lactate * Allergy Unknown Verified 08/01/24 10:02 [From Haldol] lisinopril Allergy Unknown Verified 08/01/24 10:02 - Social History Does the pt smoke?: No Smoking Status: Never smoker Does the pt drink ETOH?: No Does the pt have substance abuse?: No - Immunizations Immunizations are current?: Yes - POLST Patient has POLST: No POLST Status: Full Code (pt state she want full code) PD ED PE NORMAL - Vitals Vital signs reviewed: Yes - General General: Alert and oriented X 3, No acute distress - Cardiac Cardiac: RRR, No murmur - Respiratory Respiratory: No respiratory distress, Clear bilaterally - Abdomen Abdomen: Soft, Non tender - Neuro Neuro: Alert and oriented X 3, property loss insurance claim adjuster 2-12 intact, No motor deficit, No sensory deficit, Normal speech Eye Opening: Spontaneous Motor: Obeys Commands Verbal: Oriented GCS Score: 15 - Psych Psych: Normal mood, Normal affect Results - Vitals Vitals: Vital Signs - 24 hr 08/01/24 09:50 Temperature 36.7 C Heart Rate 77 Respiratory 16 Rate Blood Pressure 147/83 H O2 Saturation 93 Oxygen O2 Source [With Activity] Room air O2 Source Room air - Labs Labs: Laboratory Tests 08/01/24 08/01/24 10:27 10:27 WBC 8.8 RBC 4.76 Hgb 13.8 Hct 43.6 MCV 91.6 MCH 29.0 MCHC 31.7 L RDW 13.2 Plt Count 310 MPV 11.0 H Neut # (Auto) 6.2 Lymph # (Auto) 1.7 [place] # (Auto) 0.8 Eos # (Auto) 0.1 Baso # (Auto) 0.0 Absolute Nucleated RBC 0.00 Nucleated RBC % 0.0 Sodium 130 L Potassium 3.1 L Chloride 90 L Carbon Dioxide 28 Anion Gap 12.0 BUN 41 H Creatinine 1.6 H Estimated GFR (MDRD) 31 L Glucose 392 H Calcium 9.4 Magnesium 1.6 L Total Bilirubin 0.6 AST 10 ALT 9 L Alkaline Phosphatase 61 Total Protein 7.3 Albumin 4.1 Globulin 3.2 Albumin/Globulin Ratio 1.3 Lipase 13 - Rads (name of study) CT abdomen pelvis demonstrates large hiatal hernia, thickening of the gastric wall and hepatic steatosis and hepatomegaly Relevant Findings:: Final report received, EMP independent interpretation of test PD Medical Decision Making - ED course ED course: She presents with left-sided abdominal pain and vomiting. Would be concern for bowel obstruction although she is moving her bowels. Unlikely a vascular issue given the history. Could be gastroenteritis but has been sick for a long time for that. 79-year-old presents with vomiting, no chest pain per se so doubt ACS. She is not tender so doubt surgical emergency. Workup demonstrates an unremarkable CBC. CMP showing BASSAM with hyperglycemia and hypokalemia. She was administered IV fluids and IV insulin. CT demonstrating changes of gastritis likely. She is already on twice daily omeprazole. Will add Carafate. She needed a refill on her insulin. Departure - Departure Disposition: 01 Home, Self Care Clinical Impression: GERD (gastroesophageal reflux disease) Qualifiers: Esophagitis presence: esophagitis presence not specified Qualified Code(s): K21.9 - Gastro-esophageal reflux disease without esophagitis Nausea and vomiting Qualifiers: Vomiting type: unspecified Qualified Code(s): R11.2 - Nausea with vomiting, unspecified Condition: Stable Record reviewed to determine appropriate education?: Yes Instructions: ED GERD Prescriptions: Sucralfate [Carafate] 1 gm PO ACHS #60 tablet Insulin Glargine [Lantus Solostar] 20 unit SUBQ QPM #3 ea Ondansetron Odt [Zofran] 4 mg TL Q6H PRN #10 tablet PRN Reason: Nausea / Vomiting Comments: I sent your prescription electronically to the [facility] in [place]. I am adding Carafate for the stomach acid, make sure, as we discussed, to separate it from other medications with a couple of hours. Also refilling your insulin given that your blood sugar is in the upper 300s. Follow-up with your primary care physician, consideration for referral to surgery for upper endoscopy and also would recommend referral to our parent educator. Return for new or worsening symptoms.
[2024-08-01] MEDS: ONDANSETRON 4 MG/2 ML VIAL IVP STA (10:16)
[2024-08-01] MEDS: SODIUM CHLORIDE 0.9% 1,000 ML IV STA ×2 (10:16→11:55)
[2024-08-01 10:40] LABS: BASOPHILS % (AUTO) 0.3 %; EOSINOPHILS # (AUTO) 0.1 10^3/uL (0.0-0.7); EOSINOPHILS % (AUTO) 0.8 %; HCT - HEMATOCRIT 43.6 % (37.0-47.0); HGB - HEMOGLOBIN 13.8 g/dL (12.0-16.0); LYMPHOCYTES # (AUTO) 1.7 10^3/uL (1.5-3.5); LYMPHOCYTES % (AUTO) 19.5 %; MEAN CORPUSCULAR HGB CONC 31.7 g/dL (32.0-36.0); MEAN CORPUSCULAR VOLUME 91.6 fL (81.0-99.0); MONOCYTES # (AUTO) 0.8 10^3/uL (0.0-1.0); MONOCYTES % (AUTO) 8.5 %; NEUTROPHILS # (AUTO) 6.2 10^3/uL (1.5-6.6); NEUTROPHILS % (AUTO) 70.6 %; PLT - PLATELET COUNT 310 10^3/uL (130-450); RED BLOOD COUNT 4.76 10^6/uL (4.20-5.40); RED CELL DISTRIBUTION WIDTH 13.2 % (12.0-15.0); WHITE BLOOD COUNT 8.8 x10^3/uL (4.8-10.8)
[2024-08-01 10:51] LABS: ALBUMIN 4.1 g/dL (3.2-5.5); ALBUMIN/GLOBULIN RATIO 1.3 (1.0-2.2); BILIRUBIN,TOTAL 0.6 mg/dL (0.2-1.0); CALCIUM 9.4 mg/dL (8.5-10.3); CREATININE 1.6 mg/dL (0.6-1.3); MAGNESIUM 1.6 mg/dL (1.7-2.3); POTASSIUM 3.1 mmol/L (3.5-4.5); TOTAL PROTEIN 7.3 g/dL (6.4-8.9)
[2024-08-01] MEDS: POTASSIUM CHLOR 10 MEQ/100 ML 10 MEQ/100 ML BAG IV STA (11:55)
--- NOTE | 2024-08-01 12:04 | CT Report ---
PROCEDURE: Abdomen/Pelvis WO INDICATIONS: vomiting TECHNIQUE: A CT scan of the abdomen and pelvis was performed without the use of intravenous contrast. Images we re recorded and evaluated at appropriate window settings. Reformats: coronal and sagittal. For radiat ion dose reduction, the following was used: automated exposure control, adjustment of mA and/or kV ac cording to patient size. COMPARISON: CT May 31, 2024. FINDINGS: Image quality: Diagnostic. Lower chest: Large hiatal hernia. Liver: Subcentimeter hypoattenuating liver lesions, too small to characterize by CT. Hepatomegaly. He patic steatosis. Gallbladder: No radiopaque stones or wall thickening. Biliary tree: No intrahepatic or extrahepatic dilation, accounting for age. Spleen: No splenomegaly. Pancreas: No pancreatic ductal dilation. Adrenals: No adrenal nodule. Kidneys and ureters: No hydronephrosis. No contour-deforming mass. Stomach, bowel and peritoneum: Large hiatal hernia with questionable thickening of a nondistended sto mach wall. No pathologic free fluid. Lymph nodes: No central or retroperitoneal adenopathy. Vessels: No infrarenal aortic aneurysm. Reproductive organs: Unremarkable. Bladder: Bladder wall thickness is normal, accounting for underdistention. No calcified bladder stone s. Pelvic lymph nodes: No adenopathy by size criteria. Bones: No aggressive osseous abnormality. Degenerative changes with small disc bulge at L4-L5. Other: No significant ventral or inguinal hernia. IMPRESSION: Large hiatal hernia Thickening of the stomach wall may be exaggerated from under distention, recommend correlation for ga stritis. Hepatic steatosis and hepatomegaly. Reviewed by: Lakhwinder King MD on 08/01/2024 11:02 AM SABINE Approved by: Lakhwinder King MD on 08/01/2024 11:02 AM SABINE Station ID: [id number]
[2024-08-01 13:23] VITALS: BP 106/59; O2SAT 97
== END 2024-08-01 13:29 | disposition home or self-care (01) ==
LOC: ED 09:48
DX: K21.9 Gastro-esophageal reflux disease without esophagitis (principal); R11.2 Nausea with vomiting, unspecified; K44.9 Diaphragmatic hernia without obstruction or gangrene; E11.9 Type 2 diabetes mellitus without complications; Z79.4 Long term (current) use of insulin; I10 Essential (primary) hypertension; E03.9 Hypothyroidism, unspecified
CPT/HCPCS: 36415; 80053; 83690; 83735; 85025; 96361; 96365; 96375; 99284